=== PATIENT | female | born 1945 | race Caucasian/White ===

== ENCOUNTER 2019-12-04 12:23 | Emergency (ER) | payer OTHER ==
[2019-12-04] MEDS ORDERED: FENTANYL CITR 100 MCG/2 ML ONE (12:42)
[2019-12-04] MEDS ORDERED: ONDANSETRON 4 MG/2 ML VIAL ONE (12:43)
[2019-12-04] MEDS ORDERED: MORPHINE 2 MG/ML SYR ONE (13:42)
[2019-12-04] MEDS ORDERED: LIDOCAINE 4% PATCH ONE (14:37)
--- NOTE | 2019-12-04 15:44 | RAD REPORT ---
EXAM DESCRIPTION: RAD - Hip Left 2 View - 12/04/2019 3:33 pm CLINICAL HISTORY: pain COMPARISON: No comparisons FINDINGS: Mild arthritic changes involve the left hip. No acute fracture, dislocation or evidence of AVN. Soft tissue calcification adjacent to the left iliac wing laterally may be related to previous muscle injury or trauma.
--- NOTE | 2019-12-04 16:54 | EDPHYS ---
Physician Documentation [facility] Name: Leeann Vail Age: 74 yrs Sex: Female : 1945 Arrival Date: 12/04/2019 Time: 12:24 Bed 14 Private MD: ED Physician Armand Sahni HPI: 12/03 12:33 This 74 yrs old Female presents to ER via EMS with complaints of Back Pain. pm1 12:33 The patient presents with pain that is acute. pm1 12:33 The symptoms are located in the Left buttocks radiating down left leg. Onset: The pm1 symptoms/episode began/occurred today. Associated signs and symptoms: Pertinent negatives: dysuria, fever, incontinence, numbness, tingling. The problem was sustained History of sciatica in the past. Presentation of symptoms are the same as her prior sciatic pain. Historical: - Allergies: 12:30 Codeine; hb - Home Meds: 12:30 levothyroxine oral [Active]; Aspirin Oral [Active]; atorvastatin oral oral [Active]; hb - PMHx: 12:30 Hypothyroidism; Diabetes - NIDDM; hb - PSHx: 12:30 Back; hb - Immunization history:: Adult Immunizations up to date. - Social history:: Smoking status: Patient denies any tobacco usage or history of. ROS: 12:36 Constitutional: Negative for fever, chills, and weight loss, Neck: Negative for injury, pm1 pain, and swelling, Cardiovascular: Negative for chest pain, palpitations, and edema, Respiratory: Negative for shortness of breath, cough, wheezing, and pleuritic chest pain, Abdomen/GI: Negative for abdominal pain, nausea, vomiting, diarrhea, and constipation, Back: Negative for injury and pain. 12:36 Skin: Negative for injury, rash, and discoloration, Neuro: Negative for headache, weakness, numbness, tingling, and seizure. 12:36 MS/extremity: Positive for Pain to left buttocks area radiating down left leg, Negative for decreased range of motion, deformity. Exam: 12:36 Constitutional: This is a well developed, well nourished patient who is awake, alert, pm1 and in no acute distress. Head/Face: Normocephalic, atraumatic. Chest/axilla: Normal chest wall appearance and motion. Nontender with no deformity. No lesions are appreciated. 12:36 Abdomen/GI: Soft, non-tender. No guarding or rebound. No evidence of tenderness throughout. Back: No spinal tenderness. No costovertebral tenderness. Full range of motion. 12:36 Cardiovascular: Exam negative for acute changes, Rate: normal, Rhythm: regular, Pulses: no pulse deficits are appreciated. 12:36 Respiratory: Exam negative for acute changes, respiratory distress, shortness of breath. 12:36 Musculoskeletal/extremity: Extremities: grossly normal except: noted in the left gluteus radha tenderness that aggravates radiation of pain down left leg: There is no evidence of decreased ROM, deformity, Patient able to move left leg with passive and active FROM. 12:36 Neuro: Exam negative for acute changes, Orientation: is normal, Mentation: is normal, pm1 Motor: is normal, moves all fours, strength is 5/5 in all extremities, left great toe dorsi and plantar flexion 5/5, Sensation: is normal, no obvious gross deficits. Vital Signs: 12:25 BP 169 / 93; Pulse 103; Resp 16; Temp 98.2; Pulse Ox 100% on R/A; Weight 63.5 kg; hb Height 4 ft. 9 in. (144.78 cm); Pain 10/10; 13:40 BP 153 / 100; Pulse 98; Resp 18; Pulse Ox 100% ; Pain 10/10; ll1 12:25 Body Mass Index 30.30 (63.50 kg, 144.78 cm) hb MDM: 12:32 Patient medically screened. pm1 14:59 Data reviewed: vital signs. Data interpreted: Pulse oximetry: on room air is 100 %. pm1 Interpretation: normal. 14:59 Counseling: I had a detailed discussion with the patient and/or guardian regarding: the pm1 historical points, exam findings, and any diagnostic results supporting the discharge/admit diagnosis, the need for outpatient follow up, for definitive care, a neurologist, a neurosurgeon, to return to the emergency department if symptoms worsen or persist or if there are any questions or concerns that arise at home. 14:59 ED course: Patient reports marked improvement with lidoderm patch. Patient told me that pm1 she wants a blanket, a referral to a neurosurgeon, and wants to go home now. She does not want the xray because she feels better and is ready to leave . 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 pm1 12/03 14:15 Order name: Hip Left 2 View XRAY pm1 Administered Medications: 12:45 Drug: fentaNYL (PF) 50 mcg Route: IVP; Site: right antecubital; 13:39 Follow up: Response: No adverse reaction; Pain is unchanged, physician notified; RASS: ll1 Restless (+1) 12:45 Drug: Zofran (Ondansetron) 4 mg Route: IVP; Site: right antecubital; ah 13:39 Follow up: Response: No adverse reaction; RASS: Restless (+1) ll1 13:39 Drug: morphine 2 mg Route: IVP; Site: right antecubital; ll1 14:35 Drug: Lidoderm 5 % (700 mg/patch) 1 patches Route: Topical; Site: affected area; Disposition: 19:46 Co-signature as Attending Physician, Armand Sahni MD. 7 Disposition: 12/04/19 15:03 Discharged to Home. Impression: Sciatica, left side. - Condition is Stable. - Discharge Instructions: Sciatica. - Prescriptions for Lidoderm 5 % Topical adhesive patch,medicated - apply 1 patch by TRANSDERMAL route once daily As needed; 30 Transdermal Patch. Tramadol 50 mg Oral Tablet - take 1 tablet by ORAL route every 8 hours As needed as needed; 12 tablet. - Medication Reconciliation Form, Thank You Letter, Antibiotic Education, Prescription Opioid Use form. - Follow up: Emergency Department; When: As needed; Reason: Worsening of condition. Follow up: Eulogio Jennings MD; When: 2 - 3 days; Reason: Recheck today's complaints, Continuance of care, Re-evaluation by your physician. - Problem is new. - Symptoms have improved. Signatures: Dispatcher [employer] EDMS Silvano Cheng, FLUORESCENT LIGHTING MODEL MAKER FLUORESCENT LIGHTING MODEL MAKER pm1 Mirian Cleveland RN RN hb Calcote, Vanessa, RN RN vc Harris, Amy, RN RN ah Lewis, Lynsay, RN RN 1 Armand Sahni MD MD 7 Corrections: (The following items were deleted from the chart) 16:45 15:03 12/04/2019 15:03 Discharged to Home. Impression: Sciatica, left side. Condition ll1 is Stable. Forms are Medication Reconciliation Form, Thank You Letter, Antibiotic Education, Prescription Opioid Use. Follow up: Emergency Department; When: As needed; Reason: Worsening of condition. Follow up: Eulogio Jennings; When: 2 - 3 days; Reason: Recheck today's complaints, Continuance of care, Re-evaluation by your physician. Problem is new. Symptoms have improved. pm1
--- NOTE | 2019-12-04 16:54 | ER ---
Nurse's Notes [facility] Name: Leeann Vail Age: 74 yrs Sex: Female : 1945 Arrival Date: 12/04/2019 Time: 12:24 Bed 14 Private MD: Diagnosis: Sciatica, left side Presentation: 12/03 12:25 Chief complaint: EMS states: Left sided low back pain that radiates to left leg. Hx of hb back pain w/spinal blocks. Toradol 30mg IVP administered to 20g LAC DIRECTOR INFORMATION. Coronavirus screen: Proceed with normal triage. Ebola Screen: No symptoms or risks identified at this time. Initial Sepsis Screen: Does the patient meet any 2 criteria? No. Patient's initial sepsis screen is negative. Does the patient have a suspected source of infection? No. Patient's initial sepsis screen is negative. Risk Assessment: Do you want to hurt yourself or someone else? Patient reports no desire to harm self or others. Onset of symptoms was December 04, 2019. 12:25 Method Of Arrival: EMS: [facility] 12:25 Acuity: MARNIE 3 hb Triage Assessment: 12:30 General: Appears in no apparent distress. uncomfortable, Behavior is cooperative, hb crying. Pain: Pain currently is 10 out of 10 on a pain scale. EENT: No signs and/or symptoms were reported regarding the EENT system. Neuro: Level of Consciousness is awake, alert, obeys commands, Oriented to person, place, time, situation. Cardiovascular: Capillary refill < 3 seconds Patient's skin is warm and dry. Respiratory: Airway is patent Respiratory effort is even, unlabored, Respiratory pattern is regular, symmetrical. GI: No signs and/or symptoms were reported involving the gastrointestinal system. : No signs and/or symptoms were reported regarding the genitourinary system. Derm: Skin is pink, warm \T\ dry. Musculoskeletal: left low back pain that radiates to left leg. Historical: - Allergies: 12:30 Codeine; hb - Home Meds: 12:30 levothyroxine oral [Active]; Aspirin Oral [Active]; atorvastatin oral oral [Active]; hb - PMHx: 12:30 Hypothyroidism; Diabetes - NIDDM; hb - PSHx: 12:30 Back; hb - Immunization history:: Adult Immunizations up to date. - Social history:: Smoking status: Patient denies any tobacco usage or history of. Screenin:31 Abuse screen: Denies threats or abuse. Denies injuries from another. Nutritional hb screening: No deficits noted. Tuberculosis screening: No symptoms or risk factors identified. Fall Risk Total Joseph Fall Scale indicates Low Risk Score (25-44 pts). Fall prevention measures have been instituted. Side Rails Up X 2 Frequent Obs/Assesments occuring As available Patient and Family Educated on Fall Prevention Program and strategies. Assessment: 12:31 General: SEE TRIAGE. hb 13:16 General: Appears uncomfortable, Behavior is calm, cooperative. Pain: Complains of pain ll1 in left hip/leg Pain currently is 9 out of 10 on a pain scale. Quality of pain is described as aching, Pain began. Neuro: No deficits noted. Musculoskeletal: Circulation, motion, and sensation intact. Capillary refill < 3 seconds, Tenderness present in left hip Reports pain in pain in low back and left hip/leg. 13:40 Reassessment: No changes from previously documented assessment. Patient and/or family ll1 updated on plan of care and expected duration. Pain level reassessed. Patient is alert, oriented x 3, equal unlabored respirations, skin warm/dry/pink. Patient states symptoms have not improved. 13:50 Reassessment: Patient appears in no apparent distress at this time. Patient and/or vc family updated on plan of care and expected duration. Pain level reassessed. 15:00 Reassessment: Patient appears in no apparent distress at this time. Patient and/or vc family updated on plan of care and expected duration. Pain level reassessed. Patient is alert, oriented x 3, equal unlabored respirations, skin warm/dry/pink. 15:30 Reassessment: Patient appears in no apparent distress at this time. Patient and/or vc family updated on plan of care and expected duration. Pain level reassessed. Patient is alert, oriented x 3, equal unlabored respirations, skin warm/dry/pink. Patient states feeling better. Patient states symptoms have improved. Vital Signs: 12:25 BP 169 / 93; Pulse 103; Resp 16; Temp 98.2; Pulse Ox 100% on R/A; Weight 63.5 kg; hb Height 4 ft. 9 in. (144.78 cm); Pain 10/10; 13:40 BP 153 / 100; Pulse 98; Resp 18; Pulse Ox 100% ; Pain 10/10; ll1 12:25 Body Mass Index 30.30 (63.50 kg, 144.78 cm) hb ED Course: 12:24 Patient arrived in ED. hb 12:28 Triage completed. hb 12:29 Silvano Cheng NP is PHCP. pm1 12:29 Armand Sahni MD is Attending Physician. pm1 12:30 Arm band placed on. hb 12:31 Patient has correct armband on for positive identification. Bed in low position. Call hb light in reach. Side rails up X2. 12:31 Maintain EMS IV. Dressing intact. Good blood return noted. Site clean \T\ dry. Gauge \T\ hb site: 20g L AC. 12:32 Rosmery Iverson RN is Primary Nurse. 13:50 Report received from Senthil Estrada RN. vc 15:03 Eulogio Jennings MD is Referral Physician. pm1 15:37 No provider procedures requiring assistance completed. Patient did not have IV access vc during this emergency room visit. Administered Medications: 12:45 Drug: fentaNYL (PF) 50 mcg Route: IVP; Site: right antecubital; ah 13:39 Follow up: Response: No adverse reaction; Pain is unchanged, physician notified; RASS: ll1 Restless (+1) 12:45 Drug: Zofran (Ondansetron) 4 mg Route: IVP; Site: right antecubital; ah 13:39 Follow up: Response: No adverse reaction; RASS: Restless (+1) ll1 13:39 Drug: morphine 2 mg Route: IVP; Site: right antecubital; ll1 14:35 Drug: Lidoderm 5 % (700 mg/patch) 1 patches Route: Topical; Site: affected area; vc Outcome: 15:03 Discharge ordered by MD. pm1 15:37 Discharged to home via wheelchair. vc 15:37 Condition: improved 15:37 Discharge instructions given to patient, Instructed on 15:45 Patient left the ED. vc Signatures: Silvano Cheng NP CIGARETTE VENDOR pm1 Mirian Cleveland RN RN Pauly Lee RN RN vc Rosmery Iverson RN RN ah Lewis, Lynsay, RN RN ll1 Corrections: (The following items were deleted from the chart) 19:24 16:45 Patient left the ED. ll1 vc
[2019-12-04 17:23] VITALS: TEMP 98.2; O2SAT 100
[2019-12-04 17:25] VITALS: BP 153/100
== END 2019-12-04 16:45 | disposition home or self-care (01) ==
LOC: ER 12:23
DX: M54.32 Sciatica, left side (principal); E03.9 Hypothyroidism, unspecified; E11.9 Type 2 diabetes mellitus without complications; Z79.82 Long term (current) use of aspirin; Z88.5 Allergy status to narcotic agent
CPT/HCPCS: 73502; 96375; 96374; 99283; J3010; J2270; J2405

== ENCOUNTER 2019-12-06 05:12 | Emergency (ER) | payer OTHER ==
--- OUTSIDE RECORDS SUMMARY | 2019-12-06 05:22 | XMS REPORT ---
:1945 Author Organization [facility] t Address [address] [place] [address] Care Team Providers Name Role Phone Unavailable Unavailable Unavailable Payers Payer Name Policy Type Policy Number Effective Date Expiration Date S ource Problems This patient has no known problems. Allergies, Adverse Reactions, Alerts Allergy Allergy Status Severity Reaction(s) Onset Inactive Treating Comm ents Source Name Type Date Date Clinician codeine DA Active DC 2018-0 [facility] 4-14 [facility] 00:00: d 00 [facility] codeine DA Active DC 2018-0 [facility] 1-22 [facility] 00:00: e 00 [facility] codeine DA Active DC 2017-0 [facility] 2-25 [facility] 00:00: e 00 [facility] Medications This patient has no known medications. Procedures This patient has no known procedures. Results Test Description Test Time Test Comments Results Result [facility] e Comments - XR FOOT 2 VIEWS 2019-06-21 FAX: Y BI 15:13:00 Jd Garay DO [phone] [place]: O St: REG Name: DANIA PATHAKEveline Stoner [facility] : 1945 Age/S: 74/F [address] Unit #: [id number] Loc: [place] [address] Phys: Jd Garay DO Acct: [id number] Dis Date: Status: REG CLI PHONE #: [phone] Exam Date: 06/21/2019 1241 FAX #: [phone] Reason: PAIN EXAMS: CPT CODE: [id number] XR FO[place] 2 [place] [id number] CLINICAL HISTORY: PAIN TECHNIQUE: PA and lateral views of both feet COMPARISON: None FINDINGS: No acute fracture or dislocation. Bony trabecular pattern is unremarkable. No cortical destruction or periosteal reaction. There is narrowing of the interphalangeal joint spaces. There are also intertarsal degenerative changes. Small calcaneal enthesophytes are present bilaterally. IMPRESSION: Degenerative changes of both feet without acute bony abnormality. Location: [facility] at 1513 Reported and signed by: Damon Echols MD CC: Jd Garay DO Technologist: RT Jace(Morgan) Trnscrd Date/Time/By: 06/21/2019 (2764) : By: [email or web address] Orig Print D/T: S: 06/21/2019 (8448) PAGE 1 Signed Report - XR HAND 2 V BI 2019-06-21 FAX: Y 15:12:00 Jd Garay DO [phone] [place]: O St: REG Name: DANIA PATHAKEveline Stoner [facility] : 1945 Age/S: 74/F [address] Unit #: [id number] Loc: [place] [address] Phys: Jd Garay DO Acct: [id number] Dis Date: Status: REG CLI PHONE #: [phone] Exam Date: 06/21/2019 1241 FAX #: [phone] Reason: PAIN EXAMS: CPT CODE: [id number] [place] [id number] REASON FOR EXAM: PAIN EXAM ORDER DATE: 06/21/2019 12:16 PM Ordering Iesha: Jd Garay DO PROCEDURE: - XR HAND 2 V BI Comparison:Right wrist radiograph November 07, 2018 FINDINGS: No evidence of fracture. Posttraumatic changes are seen in the distal right radius and likely represent a chronic finding. The bones are appropriately aligned. There is diffuse narrowing of the interphalangeal joint spaces. 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 However no acute fracture or dislocation is seen. Location: [facility] at 1512 Reported and signed by: Damon Echols MD CC: Jd Garay DO Technologist: RT Jace(Morgan) Trnscrd Date/Time/By: 06/21/2019 (1511) : By: [email or web address] Orig Print D/T: S: 06/21/2019 (4350) PAGE 1 Signed Report UA RFLX MICR CULT IF INDICATED 2018-12-10 13:49:00 Test Item Value Reference Range Interpretation Comme nts UA COLOR (test code = COLU) YELLOW discript YEL/STRAW UA APPEARANCE (test code = APPU) CLEAR discript CLEAR UA GLUCOSE DIPSTICK (test code = DGLUU) NEGATIVE mg/dL NEG UA BILIRUBIN DIPSTICK (test code = BILU) NEGATIVE mg/dL NEG UA KETONE DIPSTICK (test code = KETU) NEGATIVE mg/dL NEG UA SPECIFIC GRAVITY (test code = SGU) 1.015 SG 1.005-1.030 UA BLOOD DIPSTICK (test code = GARDENIA) NEGATIVE mg/DL NEG UA PH DIPSTICK (test code = ERENDIRA) 7.0 pH UNITS 5.0-7.0 UA PROTEIN DIPSTICK (test code = PROU) NEGATIVE mg/dL NEG UA UROBILINIOGEN DIPSTICK (test code = URO) 0.2 mg/dL <2.0 UA NITRITE DIPSTICK (test code = AMOS) NEGATIVE SCREEN NEG UA LEUKOCYTE ESTERASE DIPSTICK (test code = LEUU) NEGATIVE Leuk/mcL NEGATIVE UA CULTURE NEEDED? (test code = UACULT) NO, WBC<10 Criteria Culture CHK less than 18 yrs old, neutropenic, or urological surgery? NOPrimary Indication for Culture: OtherOther Indication: hx of UTIUA RFLX MICR CULT IF INDICATED 2018-12-10 13:48:00 Test Item Value Reference Range Interpretation Comments UA COLOR (test code = COLU) YELLOW discript YEL/STRAW UA APPEARANCE (test code = CLEAR discript CLEAR APPU) UA GLUCOSE DIPSTICK (test NEGATIVE mg/dL NEG code = DGLUU) UA BILIRUBIN DIPSTICK (test NEGATIVE mg/dL NEG code = BILU) UA KETONE DIPSTICK (test NEGATIVE mg/dL NEG code = KETU) UA SPECIFIC GRAVITY (test 1.015 SG 1.005-1.030 code = SGU) UA BLOOD DIPSTICK (test NEGATIVE mg/DL NEG code = GARDENIA) UA PH DIPSTICK (test code = 7.0 pH UNITS 5.0-7.0 ERENDIRA) UA PROTEIN DIPSTICK (test NEGATIVE mg/dL NEG code = PROU) UA UROBILINIOGEN DIPSTICK 0.2 mg/dL <2.0 (test code = URO) UA NITRITE DIPSTICK (test NEGATIVE SCREEN NEG code = AMOS) UA LEUKOCYTE ESTERASE NEGATIVE Leuk/mcL NEGATIVE DIPSTICK (test code = LEUU) UA CULTURE NEEDED? (test Criteria Culture CHK code = UACULT) less than 18 yrs old, neutropenic, or urological surgery? NOPrimary Indication for Culture: OtherOther Indication: hx of UTIGLUCOSE BEDSIDE [id number] 11:50:00 Test Item Value Reference Range Interpretation Comments GLUCOSE BEDSIDE TESTING (test code 143 mg/dL 70-110 H = GLUBED) GLUCOSE BEDSIDE [id number] 08:19:00 Test Item Value Reference Range Interpretation Comments GLUCOSE BEDSIDE TESTING (test code = 93 mg/dL 70-110 N GLUBED) BASIC METABOLIC [id number] 05:22:00 Test Item Value Reference Range Interpretation Comments SODIUM (test code = NA) 146 mmol/L 134-147 N POTASSIUM (test code = 3.7 mmol/L 3.4-5.0 N K) CHLORIDE (test code = 115 mmol/L 100-108 H CL) CARBON DIOXIDE (test 26 mmol/L 21-32 N code = CO2) ANION GAP (test code = 5.0 GAP calc 4.0-15.0 N GAP) GLUCOSE (test code = 97 MG/DL 70-110 N GLU) BLOOD UREA NITROGEN 7 MG/DL 7-18 N (test code = BUN) GLOMERULAR FILTRATION >=60 max estimate >60 RATE (test code = GFR) estGFR CREATININE (test code = 0.8 MG/DL 0.6-1.0 N CREAT) CALCIUM (test code = CA) 8.8 MG/DL 8.5-10.1 N CBC W/AUTO [id number] 04:59:00 Test Item Value Reference Range Interpretation Comments WHITE BLOOD CELL (test code = 4.5 K/mm3 3.5-11.0 N WBC) RED BLOOD CELL (test code = RBC) 2.57 M/mm3 4.70-6.10 L HEMOGLOBIN (test code = HGB) 8.4 G/DL 10.4-14.9 L HEMATOCRIT (test code = HCT) 27.4 % 31.5-44.1 L MEAN CELL VOLUME (test code = 106.6 Fl 84.5-98.6 H MCV) MEAN CELL HGB (test code = MCH) 32.7 pg 27.0-34.2 N MEAN CELL HGB CONCETRATION (test 30.7 G/DL 31.5-34.0 L code = MCHC) RED CELL DISTRIBUTION WIDTH (test 16.2 SD 11.5-14.5 H code = RDW) PLATELET COUNT (test code = PLT) 212.0 K/mm3 150-450 N MEAN PLATELET VOLUME (test code = 9.60 fL 7.0-10.5 N MPV) NEUTROPHIL % (test code = NT%) 60.1 % 40-76 N LYMPHOCYTE % (test code = LY%) 24.0 % 20.5-51.1 N MONOCYTE % (test code = MO%) 10.6 % 1.7-9.3 H EOSINOPHIL % (test code = EO%) 4.4 % 0.0-6.0 N BASOPHIL % (test code = BA%) 0.9 % 0.0-2.0 N NEUTROPHIL # (test code = NT#) 2.73 K/mm3 1.8-7.6 N LYMPHOCYTE # (test code = LY#) 1.1 K/mm3 0.6-3.2 N MONOCYTE # (test code = MO#) 0.5 K/mm3 0.3-1.1 N EOSINOPHIL # (test code = EO#) 0.2 K/mm3 0.0-0.4 N BASOPHIL # (test code = BA#) 0.0 K/mm3 0.0-0.1 N MANUAL DIFF REQUIRED (test code = NO DIFF/SCN CRITERIA MDIFF) GLUCOSE BEDSIDE [id number] 21:13:00 Test Item Value Reference Range Interpretation Comments GLUCOSE BEDSIDE TESTING (test code 115 mg/dL 70-110 H = GLUBED) GLUCOSE BEDSIDE [id number] 17:25:00 Test Item Value Reference Range Interpretation Comments GLUCOSE BEDSIDE TESTING (test code 139 mg/dL 70-110 H = GLUBED) - DUP LE ART UNI [id number] 14:36:00 Name: LILIANA PATHAK [facility] : 1945 Age/S: 73 / F [address] Unit #: [id number] Loc: [place] [address] Phys: Dana Strange MD Acct: [id number] Dis Date: Status: ADM IN PHONE #: [phone] Exam Date: 12/09/2018 0831 FAX #: Reason: reeval R groin pseudo s/p thrombin injection EXAMS: CPT: [id number] [id number] EXAMINATION: - DUP LE ART UNI RT. LOCATION: S17. HISTORY: Reeval R groin pseudo s/pthrombin injection. COMPARISON: Ultrasound 12/08/2018 and 12/05/2018. FINDINGS/ IMPRESSION: Targeted high resolution real-time ultrasonographic evaluation of right groin was performed utilizing carter scale, pulse Doppler and color flowimaging. 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 Right proximal, mid and distal SFA is patent. Right SFV is patent. at 1436 Reported and signed by: Brittney Strange M.D. CC: Roxana Chacon MD; dJ Garay DO; Dana Strange MD Technologist: Ilene Lawrence Trnscb Date/Time: 12/09/2018 (8656) [email or web address] PAGE 1 Signed Report Name: LILIANA PATHAK : 1945 Age/S: 73 / F [address] Unit #: [id number] Loc: [place] [address] Phys: Dana Strange MD Acct: [id number] Dis Date: Status: ADM IN PHONE #: [phone] Exam Date: 12/09/2018 0831 FAX #: Reason: reeval R groin pseudo s/p thrombin injection EXAMS: CPT: [id number] [id number] <Continued> Orig Print D/T: S: 12/10/2018 (0831) Probe: PAGE 2 Signed ReportGLUCOSE BEDSIDE TESTING 2018-12-09 11:54:00 Test Item Value Reference Range Interpretation Comments GLUCOSE BEDSIDE TESTING (test code = 99 mg/dL 70-110 N GLUBED) GLUCOSE BEDSIDE [id number] 08:18:00 Test Item Value Reference Range Interpretation Comments GLUCOSE BEDSIDE TESTING (test code = 92 mg/dL 70-110 N GLUBED) BASIC METABOLIC [id number] 06:12:00 Test Item Value Reference Range Interpretation Comments SODIUM (test code = NA) 143 mmol/L 134-147 N POTASSIUM (test code = 4.5 mmol/L 3.4-5.0 N K) CHLORIDE (test code = 111 mmol/L 100-108 H CL) CARBON DIOXIDE (test 27 mmol/L 21-32 N code = CO2) ANION GAP (test code = 5.0 GAP calc 4.0-15.0 N GAP) GLUCOSE (test code = 95 MG/DL 70-110 N GLU) BLOOD UREA NITROGEN 12 MG/DL 7-18 N (test code = BUN) GLOMERULAR FILTRATION >=60 max estimate >60 RATE (test code = GFR) estGFR CREATININE (test code = 0.8 MG/DL 0.6-1.0 N CREAT) CALCIUM (test code = CA) 8.6 MG/DL 8.5-10.1 N CBC W/AUTO [id number] 05:34:00 Test Item Value Reference Range Interpretation Comments WHITE BLOOD CELL (test code = 5.2 K/mm3 3.5-11.0 N WBC) RED BLOOD CELL (test code = RBC) 2.75 M/mm3 4.70-6.10 L HEMOGLOBIN (test code = HGB) 9.2 G/DL 10.4-14.9 L HEMATOCRIT (test code = HCT) 29.0 % 31.5-44.1 L MEAN CELL VOLUME (test code = 105.5 Fl 84.5-98.6 H MCV) MEAN CELL HGB (test code = MCH) 33.5 pg 27.0-34.2 N MEAN CELL HGB CONCETRATION (test 31.7 G/DL 31.5-34.0 N code = MCHC) RED CELL DISTRIBUTION WIDTH (test 16.3 SD 11.5-14.5 H code = RDW) PLATELET COUNT (test code = PLT) 225.0 K/mm3 150-450 N MEAN PLATELET VOLUME (test code = 9.40 fL 7.0-10.5 N MPV) NEUTROPHIL % (test code = NT%) 64.6 % 40-76 LYMPHOCYTE % (test code = LY%) 21.6 % 20.5-51.1 N MONOCYTE % (test code = MO%) 8.8 % 1.7-9.3 N EOSINOPHIL % (test code = EO%) 4.2 % 0.0-6.0 N BASOPHIL % (test code = BA%) 0.8 % 0.0-2.0 N NEUTROPHIL # (test code = NT#) 3.37 K/mm3 1.8-7.6 N LYMPHOCYTE # (test code = LY#) 1.1 K/mm3 0.6-3.2 N MONOCYTE # (test code = MO#) 0.5 K/mm3 0.3-1.1 N EOSINOPHIL # (test code = EO#) 0.2 K/mm3 0.0-0.4 N BASOPHIL # (test code = BA#) 0.0 K/mm3 0.0-0.1 N MANUAL DIFF REQUIRED (test code = NO DIFF/SCN CRITERIA MDIFF) GLUCOSE BEDSIDE [id number] 20:40:00 Test Item Value Reference Range Interpretation Comments GLUCOSE BEDSIDE TESTING (test code 160 mg/dL 70-110 H = GLUBED) - US GUIDANCE [facility] [id number] 16:11:00 Name: LILIANA PATHAK [facility] [place] : 1945 Age/S: 73 / F [address] Unit #: [id number] Loc: [place] [address] Phys: Roxana Chacon MD Acct: [id number] Dis Date: Status: ADM IN PHONE #: [phone] Exam Date: 12/08/2018 1510 FAX #: Reason: RIGHT PS EUDOANEURYSM EXAMS: CPT: [id number] US GUIDANCE [facility] ACCESS [id number] ULTRASOUND-GUIDED THROMBIN INJECTION IN RIGHT FEMORAL PSEUDOANEURYSM LOCATION: S17. HISTORY: Recent emergent heart cath with subsequent right groin pain and swelling with recent ultrasound demonstrating bilobed pseudoaneurysm, request is made for treatment. COMPARISON: CT pelvis 11/27/2018, US right groin 12/05/2018. TECHNIQUE: Following explanation of risks, benefits, and alternative treatment options, informed consent was obtained from patient. Risk of thrombosis of the [place] vessel was explained. The patient was placed supine on the bed and prepped and draped in the usual sterile fashion. Preliminary ultrasound demonstrates bilobed pseudoaneurysm formation in the right groin, approximately measuring 5.1 x 2.9 cm. 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 Underdirect ultrasound guidance, a 25-gauge needle was advanced from an anterior approach into the right femoral pseudoaneurysm. Approximately 250 units of thrombin were slowly injected causingblood to clot and form within the pseudoaneurysm. Color sonography showed the presence of a new blood clot within the pseudoaneurysm. At the end of the procedure, no flow within the pseudoaneurysm was observed. The underlying arterial vasculature remained patent withoutacute abnormality. Vascular flow was noted in the right lower extremity arterial vessels after procedure sonographically, as well as presence of pedal pulses. The patient tolerated the procedure well and left the room in satisfactory condition without complication. IMPRESSION: Technically successful injection of 250 units of thrombin into the right femoral pseudoaneurysm. PLAN: Repeat ultrasound of pseudoaneurysm and right lower extremity arterial Doppler was ordered for following morning. PAGE 1 Signed Report (CONTINUED) Name: LILIANA PATHAK [facility] : 1945 Age/S: 73 / F [address] Unit #: [id number] Loc: [place] [address] Phys: Roxana Chacon MD Acct: [id number] DisDate: Status: ADM IN PHONE #: [phone] Exam Date: 12/08/2018 1510 FAX #: Reason: RIGHT PSEUDOANEURYSM EXAMS: CPT: [id number] US GUIDANCE [facility] ACCESS [id number] <Continued> at 1611 Reported and signed by: Brittney Strange M.D. CC: Roxana Chacon MD; Jd Garay DO Technologist: Gena Weber RDMS, RT(R) Trnscb Date/Time: 12/08/2018 (1611) [email or web address] PAGE 2 Signed Report Name: LILIANA PATHAK [facility] : 1945 Age/S: 73 / F [address] Unit #: [id number] Loc: [place] [address] Phys:Roxana Chacon MD Acct: [id number] Dis Date: Status: ADM IN PHONE #: [phone] Exam Date: 12/08/2018 1510 FAX #: Reason: RIGHT PSEUDOANEURYSM EXAMS: CPT: [id number] [facility] GUIDANCE [facility] ACCESS [id number] <Continued> Orig Print D/T: S: 12/08/2018 (1614) Probe: PAGE 3 Signed ReportGLUCOSE BEDSIDE [id number] 16:04:00 Test Item Value Reference Range Interpretation Comments GLUCOSE BEDSIDE TESTING (test code = 86 mg/dL 70-110 N GLUBED) GLUCOSE BEDSIDE [id number] 11:34:00 Test Item Value Reference Range Interpretation Comments GLUCOSE BEDSIDE TESTING (test code 137 mg/dL 70-110 H = GLUBED) GLUCOSE BEDSIDE [id number] 07:13:00 Test Item Value Reference Range Interpretation Comments GLUCOSE BEDSIDE TESTING (test code = 90 mg/dL 70-110 N GLUBED) PROTHROMBIN [id number] 05:24:00 Test Item Value Reference Range Interpretation Comments PT PATIENT (test code = PTP) 11.6 SECONDS 9.3-12.9 N INTERNATIONAL NORMAL RATIO 1.01 INR Unit 0.8-1.2 N (test code = INR) BASIC METABOLIC [id number] 05:10:00 Test Item Value Reference Range Interpretation Comments SODIUM (test code = NA) 143 mmol/L 134-147 N POTASSIUM (test code = 4.2 mmol/L 3.4-5.0 N K) CHLORIDE (test code = 111 mmol/L 100-108 H CL) CARBON DIOXIDE (test 29 mmol/L 21-32 N code = CO2) ANION GAP (test code = 3.0 GAP calc 4.0-15.0 L GAP) GLUCOSE (test code = 95 MG/DL 70-110 N GLU) BLOOD UREA NITROGEN 12 MG/DL 7-18 N (test code = BUN) GLOMERULAR FILTRATION >=60 max estimate >60 RATE (test code = GFR) estGFR CREATININE (test code = 0.9 MG/DL 0.6-1.0 N CREAT) CALCIUM (test code = CA) 8.6 MG/DL 8.5-10.1 N CBC W/AUTO [id number] 05:04:00 Test Item Value Reference Range Interpretation Comments WHITE BLOOD CELL (test code = 5.4 K/mm3 3.5-11.0 N WBC) RED BLOOD CELL (test code = RBC) 2.55 M/mm3 4.70-6.10 L HEMOGLOBIN (test code = HGB) 8.4 G/DL 10.4-14.9 L HEMATOCRIT (test code = HCT) 26.8 % 31.5-44.1 L MEAN CELL VOLUME (test code = 105.1 Fl 84.5-98.6 H MCV) MEAN CELL HGB (test code = MCH) 32.9 pg 27.0-34.2 N MEAN CELL HGB CONCETRATION (test 31.3 G/DL 31.5-34.0 L code = MCHC) RED CELL DISTRIBUTION WIDTH (test 16.5 SD 11.5-14.5 H code = RDW) PLATELET COUNT (test code = PLT) 191.0 K/mm3 150-450 N MEAN PLATELET VOLUME (test code = 9.60 fL 7.0-10.5 N MPV) NEUTROPHIL % (test code = NT%) 49.3 % 40-76 LYMPHOCYTE % (test code = LY%) 33.6 % 20.5-51.1 N MONOCYTE % (test code = MO%) 11.9 % 1.7-9.3 H EOSINOPHIL % (test code = EO%) 4.6 % 0.0-6.0 N BASOPHIL % (test code = BA%) 0.6 % 0.0-2.0 N NEUTROPHIL # (test code = NT#) 2.66 K/mm3 1.8-7.6 N LYMPHOCYTE # (test code = LY#) 1.8 K/mm3 0.6-3.2 N MONOCYTE # (test code = MO#) 0.6 K/mm3 0.3-1.1 N EOSINOPHIL # (test code = EO#) 0.3 K/mm3 0.0-0.4 N BASOPHIL # (test code = BA#) 0.0 K/mm3 0.0-0.1 N MANUAL DIFF REQUIRED (test code = NO DIFF/SCN CRITERIA MDIFF) GLUCOSE BEDSIDE [id number] 20:29:00 Test Item Value Reference Range Interpretation Comments GLUCOSE BEDSIDE TESTING (test code 128 mg/dL 70-110 H = GLUBED) GLUCOSE BEDSIDE [id number] 17:11:00 Test Item Value Reference Range Interpretation Comments GLUCOSE BEDSIDE TESTING (test code 112 mg/dL 70-110 H = GLUBED) GLUCOSE BEDSIDE [id number] 12:04:00 Test Item Value Reference Range Interpretation Comments GLUCOSE BEDSIDE TESTING (test code 164 mg/dL 70-110 H = GLUBED) GLUCOSE BEDSIDE [id number] 05:24:00 Test Item Value Reference Range Interpretation Comments GLUCOSE BEDSIDE TESTING (test code = 82 mg/dL 70-110 N GLUBED) GLUCOSE BEDSIDE [id number] 21:48:00 Test Item Value Reference Range Interpretation Comments GLUCOSE BEDSIDE TESTING (test code = 92 mg/dL 70-110 N GLUBED) GLUCOSE BEDSIDE [id number] 08:25:00 Test Item Value Reference Range Interpretation Comments GLUCOSE BEDSIDE TESTING (test code = 82 mg/dL 70-110 N GLUBED) COMPREHENSIVE METABOLIC [id number] 05:58:00 Test Item Value Reference Range Interpretation Comments SODIUM (test code = NA) 142 mmol/L 134-147 N POTASSIUM (test code = 3.9 mmol/L 3.4-5.0 N K) CHLORIDE (test code = 108 mmol/L 100-108 N CL) CARBON DIOXIDE (test 32 mmol/L 21-32 N code = CO2) ANION GAP (test code = 2.0 GAP calc 4.0-15.0 L GAP) GLUCOSE (test code = 104 MG/DL 70-110 N GLU) BLOOD UREA NITROGEN 13 MG/DL 7-18 N (test code = BUN) GLOMERULAR FILTRATION >=60 max estimate >60 RATE (test code = GFR) estGFR CREATININE (test code = 0.9 MG/DL 0.6-1.0 N CREAT) TOTAL PROTEIN (test code 6.1 G/DL 6.4-8.2 L = PROT) ALBUMIN (test code = 3.3 G/DL 3.4-5.0 L ALB) GLOBULIN (test code = 2.8 GM/dL GLOB) ALBUMIN/GLOBULIN RATIO 1.2 RATIO 1.2-2.2 N (test code = A/G) CALCIUM (test code = CA) 9.5 MG/DL 8.5-10.1 N BILIRUBIN TOTAL (test 0.60 MG/DL 0.2-1.2 N code = BILT) SGOT/AST (test code = 19 Unit/L 15-37 N AST) SGPT/ALT (test code = 17 Unit/L 12-78 N ALT) ALKALINE PHOSPHATASE 58 Unit/L 45-117 N TOTAL (test code = ALKP) GLUCOSE BEDSIDE [id number] 05:45:00 Test Item Value Reference Range Interpretation Comments GLUCOSE BEDSIDE TESTING (test code 100 mg/dL 70-110 N = GLUBED) CBC W/AUTO [id number] 05:38:00 Test Item Value Reference Range Interpretation Comments WHITE BLOOD CELL (test code = 6.3 K/mm3 3.5-11.0 N WBC) RED BLOOD CELL (test code = RBC) 2.84 M/mm3 4.70-6.10 L HEMOGLOBIN (test code = HGB) 9.3 G/DL 10.4-14.9 L HEMATOCRIT (test code = HCT) 29.3 % 31.5-44.1 L MEAN CELL VOLUME (test code = 103.2 Fl 84.5-98.6 H MCV) MEAN CELL HGB (test code = MCH) 32.7 pg 27.0-34.2 N MEAN CELL HGB CONCETRATION (test 31.7 G/DL 31.5-34.0 N code = MCHC) RED CELL DISTRIBUTION WIDTH (test 16.5 SD 11.5-14.5 H code = RDW) PLATELET COUNT (test code = PLT) 199.0 K/mm3 150-450 N MEAN PLATELET VOLUME (test code = 8.80 fL 7.0-10.5 N MPV) NEUTROPHIL % (test code = NT%) 67.6 % 40-76 N LYMPHOCYTE % (test code = LY%) 17.5 % 20.5-51.1 L MONOCYTE % (test code = MO%) 11.1 % 1.7-9.3 H EOSINOPHIL % (test code = EO%) 3.3 % 0.0-6.0 N BASOPHIL % (test code = BA%) 0.5 % 0.0-2.0 N NEUTROPHIL # (test code = NT#) 4.28 K/mm3 1.8-7.6 N LYMPHOCYTE # (test code = LY#) 1.1 K/mm3 0.6-3.2 N MONOCYTE # (test code = MO#) 0.7 K/mm3 0.3-1.1 N EOSINOPHIL # (test code = EO#) 0.2 K/mm3 0.0-0.4 N BASOPHIL # (test code = BA#) 0.0 K/mm3 0.0-0.1 N MANUAL DIFF REQUIRED (test code = NO DIFF/SCN CRITERIA MDIFF) - DUP VEIN [id number] 01:53:00 Name: DANIA PATHAKEveline Stoner [facility] : 1945 Age/S: 73 / F [address] [facility] [address] Unit #: [id number] Loc: [place] [address] 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 Site: P16 COMPARISON: none FINDINGS: Right side:- 1. Patent and compressible visualized portions of the common femoral, femoral and popliteal veins to the level of the trifurcation. 2. Unremarkable appearance of the visualized portions of the deep veinsof the calf. Please note there is limited visualization of the PTV secondary to edema 3. Significant calf edema Left side:- 1. Patent and compressible visualized portions of the common femoral, femoral and popliteal veins to the level of the trifurcation. 2. Unremarkable appearance of the visualized portions of the deep veinsof the calf. Please note there is limited visualization of the PTV secondary to edema 3. Significant calf edema IMPRESSION: No evidence of DVT is visualized although evaluation is limited secondary to edema. at 0153 Reported and signed by: Sejal Echols M.D. 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 Acct: [id number] Dis Date: Status: ADM IN PHONE #: [phone] Date: 12/06/2018 0115 FAX #: Reason: edema EXAMS: CPT: [id number] DUP VEIN BHARTI [id number] <Continued> CC: Jd Garay DO; Cecil Marquez MD; Margie Zazueta NP Technologist: Loida Walker RDMS Trnscb Date/Time: 12/06/2018 (0153) [email or web address] PAGE 2 Signed Report Name: ZOLILIANA Stoner [facility] : 1945 Age/S: 73 / F [address] [place] [address] Unit #: [id number] Loc: [place] [address] 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 Acct: [id number] Dis Date: Status: ADM IN PHONE #: [phone] Exam Date: 12/06/2018 0115 FAX #: Reason: edema EXAMS: CPT: [id number] VEIN BHARTI [id number] <Continued> Orig Print D/T: S: 12/06/2018 (0157) Probe: PAGE 3 Signed ReportBASIC METABOLIC [id number] 21:33:00 Test Item Value Reference Range Interpretation Comments SODIUM (test code = NA) 137 mmol/L 134-147 N POTASSIUM (test code = K) 3.9 mmol/L 3.4-5.0 N CHLORIDE (test code = CL) 104 mmol/L 100-108 N CARBON DIOXIDE (test code = CO2) 28 mmol/L 21-32 N ANION GAP (test code = GAP) 5.0 GAP calc 4.0-15.0 N GLUCOSE (test code = GLU) 138 MG/DL 70-110 H BLOOD UREA NITROGEN (test code = 15 MG/DL 7-18 N BUN) GLOMERULAR FILTRATION RATE (test 58 estGFR >60 L code = GFR) CREATININE (test code = CREAT) 1.0 MG/DL 0.6-1.0 N CALCIUM (test code = CA) 9.7 MG/DL 8.5-10.1 N BASIC METABOLIC [id number] 21:31:00 Test Item Value Reference Range Interpretation Comments SODIUM (test code = NA) 137 mmol/L 134-147 N POTASSIUM (test code = K) 3.9 mmol/L 3.4-5.0 N CHLORIDE (test code = CL) 104 mmol/L 100-108 N CARBON DIOXIDE (test code = CO2) 28 mmol/L 21-32 N ANION GAP (test code = GAP) 5.0 GAP calc 4.0-15.0 N GLUCOSE (test code = GLU) 138 MG/DL 70-110 H BLOOD UREA NITROGEN (test code = 15 MG/DL 7-18 N BUN) GLOMERULAR FILTRATION RATE (test estGFR >60 code = GFR) CREATININE (test code = CREAT) MG/DL 0.6-1.0 CALCIUM (test code = CA) 9.7 MG/DL 8.5-10.1 N CBC W/AUTO [id number] 21:22:00 Test Item Value Reference Range Interpretation Comments WHITE BLOOD CELL (test code = 5.9 K/mm3 3.5-11.0 N WBC) RED BLOOD CELL (test code = RBC) 3.29 M/mm3 4.70-6.10 L HEMOGLOBIN (test code = HGB) 10.7 G/DL 10.4-14.9 N HEMATOCRIT (test code = HCT) 33.6 % 31.5-44.1 N MEAN CELL VOLUME (test code = 102.1 Fl 84.5-98.6 H MCV) MEAN CELL HGB (test code = MCH) 32.5 pg 27.0-34.2 N MEAN CELL HGB CONCETRATION (test 31.8 G/DL 31.5-34.0 N code = MCHC) RED CELL DISTRIBUTION WIDTH (test 16.5 SD 11.5-14.5 H code = RDW) PLATELET COUNT (test code = PLT) 231.0 K/mm3 150-450 N MEAN PLATELET VOLUME (test code = 9.30 fL 7.0-10.5 N MPV) NEUTROPHIL % (test code = NT%) 73.0 % 40-76 N LYMPHOCYTE % (test code = LY%) 13.8 % 20.5-51.1 L MONOCYTE % (test code = MO%) 9.8 % 1.7-9.3 H EOSINOPHIL % (test code = EO%) 2.9 % 0.0-6.0 N BASOPHIL % (test code = BA%) 0.5 % 0.0-2.0 N NEUTROPHIL # (test code = NT#) 4.30 K/mm3 1.8-7.6 N LYMPHOCYTE # (test code = LY#) 0.8 K/mm3 0.6-3.2 N MONOCYTE # (test code = MO#) 0.6 K/mm3 0.3-1.1 N EOSINOPHIL # (test code = EO#) 0.2 K/mm3 0.0-0.4 N BASOPHIL # (test code = BA#) 0.0 K/mm3 0.0-0.1 N MANUAL DIFF REQUIRED (test code = NO DIFF/SCN CRITERIA MDIFF) - US EXTREM NON [facility] [id number] 20:41:00 Name: DANIA PATHAKA [facility] : 1945 Age/S: 73 / F [address] Unit #: [id number] Loc: [place] [address] Phys: Ellyn Izaguirre MD Acct: [id number] Dis Date: Status: REG ER PHONE #: [phone] Exam Date: 12/05/20182015 FAX #: Reason: R inguinal pain s/p cath (11/23/18) EXAMS: CPT: [id number] US EXTREM NON VASC COMP [id number] Ultrasound soft tissue History: R inguinal pain s/p cath (11/23/18) Comparison: November 28, 2018 Ultrasound of the soft tissues of the right groin, in the area of concern, was performed. A pseudoaneurysm, with blood flow, is again identified. This measures 3.2 x 2.3 x 2.3 cm in dimensions on today's exam. No other sonographic abnormalities are identified. 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 This is larger on today's exam compared to the prior exam performed November 28, 2018. at 2040 Reported and signed by: Jon Griffith M.D. CC: Jd Garay DO; Ellyn Izaguirre MD Technologist: Loida Walker RDMS Trnscb Date/Time: 12/05/2018 (2040) RadhaPMT PAGE 1 Signed Report Name: LILIANA PATHAK [facility] : 1945 Age/S: 73 / F [id number] Unit #: [id number] Loc: [place] [address] Phys: Ellyn Izaguirre MD Acct: [id number] Dis Date: Status: REG ER PHONE #: [phone] Exam Date: FAX #: Reason: R inguinal pain s/p cath (11/23/18) EXAMS: CPT: [id number] US EXTREM NONVASC COMP [id number] <Continued> Orig Print D/T: S: 12/05/2018 (2043) Probe: PAGE 2 Signed ReportGLUCOSE BEDSIDE TESTING 2018-12-01 11:28:00 Test Item Value Reference Range Interpretation Comments GLUCOSE BEDSIDE TESTING (test code 179 mg/dL 70-110 H = GLUBED) GLUCOSE BEDSIDE [id number] 07:52:00 Test Item Value Reference Range Interpretation Comments GLUCOSE BEDSIDE TESTING (test code = 99 mg/dL 70-110 N GLUBED) BASIC METABOLIC [id number] 05:16:00 Test Item Value Reference Range Interpretation Comments SODIUM (test code = NA) 146 mmol/L 134-147 N POTASSIUM (test code = K) 4.1 mmol/L 3.4-5.0 N CHLORIDE (test code = CL) 114 mmol/L 100-108 H CARBON DIOXIDE (test code = CO2) 28 mmol/L 21-32 N ANION GAP (test code = GAP) 4.0 GAP calc 4.0-15.0 N GLUCOSE (test code = GLU) 96 MG/DL 70-110 N BLOOD UREA NITROGEN (test code = 10 MG/DL 7-18 N BUN) GLOMERULAR FILTRATION RATE (test 58 estGFR >60 L code = GFR) CREATININE (test code = CREAT) 1.0 MG/DL 0.6-1.0 N CALCIUM (test code = CA) 9.0 MG/DL 8.5-10.1 N [id number] 05:16:00 Test Item Value Reference Range Interpretation Comments MAGNESIUM (test code = MAG) 1.7 MG/DL 1.8-2.4 L CBC W/AUTO [id number] 04:56:00 Test Item Value Reference Range Interpretation Comments WHITE BLOOD CELL (test code = 5.5 K/mm3 3.5-11.0 N WBC) RED BLOOD CELL (test code = RBC) 2.49 M/mm3 4.70-6.10 L HEMOGLOBIN (test code = HGB) 8.3 G/DL 10.4-14.9 L HEMATOCRIT (test code = HCT) 25.3 % 31.5-44.1 L MEAN CELL VOLUME (test code = 101.6 Fl 84.5-98.6 H MCV) MEAN CELL HGB (test code = MCH) 33.3 pg 27.0-34.2 N MEAN CELL HGB CONCETRATION (test 32.8 G/DL 31.5-34.0 N code = MCHC) RED CELL DISTRIBUTION WIDTH (test 17.4 SD 11.5-14.5 H code = RDW) PLATELET COUNT (test code = PLT) 171.0 K/mm3 150-450 N MEAN PLATELET VOLUME (test code = 9.90 fL 7.0-10.5 N MPV) NEUTROPHIL % (test code = NT%) 55.5 % 40-76 LYMPHOCYTE % (test code = LY%) 26.0 % 20.5-51.1 N MONOCYTE % (test code = MO%) 11.9 % 1.7-9.3 H EOSINOPHIL % (test code = EO%) 6.1 % 0.0-6.0 H BASOPHIL % (test code = BA%) 0.5 % 0.0-2.0 N NEUTROPHIL # (test code = NT#) 3.06 K/mm3 1.8-7.6 N LYMPHOCYTE # (test code = LY#) 1.4 K/mm3 0.6-3.2 N MONOCYTE # (test code = MO#) 0.7 K/mm3 0.3-1.1 N EOSINOPHIL # (test code = EO#) 0.3 K/mm3 0.0-0.4 N BASOPHIL # (test code = BA#) 0.0 K/mm3 0.0-0.1 N MANUAL DIFF REQUIRED (test code = NO DIFF/SCN CRITERIA MDIFF) GLUCOSE BEDSIDE [id number] 21:50:00 Test Item Value Reference Range Interpretation Comments GLUCOSE BEDSIDE TESTING (test code 127 mg/dL 70-110 H = GLUBED) HGB [id number] 18:32:00 Test Item Value Reference Range Interpretation Comments HEMOGLOBIN (test code = HGB) 9.3 G/DL 10.4-14.9 L HEMATOCRIT (test code = HCT) 29.0 % 31.5-44.1 L GLUCOSE BEDSIDE [id number] 16:57:00 Test Item Value Reference Range Interpretation Comments GLUCOSE BEDSIDE TESTING (test code 137 mg/dL 70-110 H = GLUBED) GLUCOSE BEDSIDE [id number] 11:45:00 Test Item Value Reference Range Interpretation Comments GLUCOSE BEDSIDE TESTING (test code 127 mg/dL 70-110 H = GLUBED) GLUCOSE BEDSIDE [id number] 08:43:00 Test Item Value Reference Range Interpretation Comments GLUCOSE BEDSIDE TESTING (test code = 77 mg/dL 70-110 N GLUBED) HGB [id number] 08:31:00 Test Item Value Reference Range Interpretation Comments HEMOGLOBIN (test code = HGB) 8.6 G/DL 10.4-14.9 L HEMATOCRIT (test code = HCT) 26.7 % 31.5-44.1 L LACTIC ACID [id number] 08:15:00 Test Item Value Reference Range Interpretation Comments LACTIC ACID POC (test code = < 0.30 MMOL/L 0.90-1.70 L LACTP) CBC W/AUTO [id number] 06:34:00 Test Item Value Reference Range Interpretation Comments WHITE BLOOD CELL (test 5.4 K/mm3 3.5-11.0 N code = WBC) RED BLOOD CELL (test 2.55 M/mm3 4.70-6.10 L code = RBC) HEMOGLOBIN (test code 8.3 G/DL 10.4-14.9 L = HGB) HEMATOCRIT (test code 25.6 % 31.5-44.1 L = HCT) MEAN CELL VOLUME (test 100.4 Fl 84.5-98.6 H code = MCV) MEAN CELL HGB (test 32.5 pg 27.0-34.2 N code = MCH) MEAN CELL HGB 32.4 G/DL 31.5-34.0 N CONCETRATION (test code = MCHC) RED CELL DISTRIBUTION 17.6 SD 11.5-14.5 H WIDTH (test code = RDW) PLATELET COUNT (test 160.0 K/mm3 150-450 N code = PLT) MEAN PLATELET VOLUME 10.40 fL 7.0-10.5 N (test code = MPV) NEUTROPHIL % (test 47.7 % 40-76 N code = NT%) LYMPHOCYTE % (test 32.8 % 20.5-51.1 N code = LY%) MONOCYTE % (test code 11.3 % 1.7-9.3 H = MO%) EOSINOPHIL % (test 7.6 % 0.0-6.0 H code = EO%) BASOPHIL % (test code 0.6 % 0.0-2.0 N = BA%) NEUTROPHIL # (test 2.58 K/mm3 1.8-7.6 N code = NT#) LYMPHOCYTE # (test 1.8 K/mm3 0.6-3.2 N code = LY#) MONOCYTE # (test code 0.6 K/mm3 0.3-1.1 N = MO#) EOSINOPHIL # (test 0.4 K/mm3 0.0-0.4 N code = EO#) BASOPHIL # (test code 0.0 K/mm3 0.0-0.1 N = BA#) MANUAL DIFF REQUIRED NO DIFF/SCN CRITERIA SLIDE Morgan ROLDAN (test code = MDIFF) CONSISTA NT WITH AUTO DIFFERENTIAL. BASIC METABOLIC [id number] 05:22:00 Test Item Value Reference Range Interpretation Comments SODIUM (test code = NA) 143 mmol/L 134-147 N POTASSIUM (test code = K) 3.7 mmol/L 3.4-5.0 N CHLORIDE (test code = CL) 113 mmol/L 100-108 H CARBON DIOXIDE (test code = CO2) 23 mmol/L 21-32 N ANION GAP (test code = GAP) 7.0 GAP calc 4.0-15.0 N GLUCOSE (test code = GLU) 85 MG/DL 70-110 N BLOOD UREA NITROGEN (test code = 13 MG/DL 7-18 N BUN) GLOMERULAR FILTRATION RATE (test 58 estGFR >60 L code = GFR) CREATININE (test code = CREAT) 1.0 MG/DL 0.6-1.0 N CALCIUM (test code = CA) 8.5 MG/DL 8.5-10.1 N [id number] 05:22:00 Test Item Value Reference Range Interpretation Comments MAGNESIUM (test code = MAG) 1.6 MG/DL 1.8-2.4 L CBC W/AUTO [id number] 05:18:00 Test Item Value Reference Range Interpretation Comments WHITE BLOOD CELL (test code = 5.4 K/mm3 3.5-11.0 N WBC) RED BLOOD CELL (test code = RBC) 2.55 M/mm3 4.70-6.10 L HEMOGLOBIN (test code = HGB) 8.3 G/DL 10.4-14.9 L HEMATOCRIT (test code = HCT) 25.6 % 31.5-44.1 L MEAN CELL VOLUME (test code = 100.4 Fl 84.5-98.6 H MCV) MEAN CELL HGB (test code = MCH) 32.5 pg 27.0-34.2 N MEAN CELL HGB CONCETRATION (test 32.4 G/DL 31.5-34.0 N code = MCHC) RED CELL DISTRIBUTION WIDTH (test 17.6 SD 11.5-14.5 H code = RDW) PLATELET COUNT (test code = PLT) 160.0 K/mm3 150-450 N MEAN PLATELET VOLUME (test code = 10.40 fL 7.0-10.5 N MPV) NEUTROPHIL % (test code = NT%) 47.7 % 40-76 N LYMPHOCYTE % (test code = LY%) 32.8 % 20.5-51.1 N MONOCYTE % (test code = MO%) 11.3 % 1.7-9.3 H EOSINOPHIL % (test code = EO%) 7.6 % 0.0-6.0 H BASOPHIL % (test code = BA%) 0.6 % 0.0-2.0 N NEUTROPHIL # (test code = NT#) 2.58 K/mm3 1.8-7.6 N LYMPHOCYTE # (test code = LY#) 1.8 K/mm3 0.6-3.2 N MONOCYTE # (test code = MO#) 0.6 K/mm3 0.3-1.1 N EOSINOPHIL # (test code = EO#) 0.4 K/mm3 0.0-0.4 N BASOPHIL # (test code = BA#) 0.0 K/mm3 0.0-0.1 N MANUAL DIFF REQUIRED (test code = NO DIFF/SCN CRITERIA MDIFF) HGB [id number] 22:57:00 Test Item Value Reference Range Interpretation Comments HEMOGLOBIN (test code = HGB) 8.2 G/DL 10.4-14.9 L HEMATOCRIT (test code = HCT) 25.9 % 31.5-44.1 L GLUCOSE BEDSIDE [id number] 20:48:00 Test Item Value Reference Range Interpretation Comments GLUCOSE BEDSIDE TESTING (test code 104 mg/dL 70-110 N = GLUBED) GLUCOSE BEDSIDE [id number] 17:51:00 Test Item Value Reference Range Interpretation Comments GLUCOSE BEDSIDE TESTING (test code 155 mg/dL 70-110 H = GLUBED) GLUCOSE BEDSIDE [id number] 14:20:00 Test Item Value Reference Range Interpretation Comments GLUCOSE BEDSIDE TESTING (test code 105 mg/dL 70-110 N = GLUBED) GLUCOSE BEDSIDE [id number] 12:18:00 Test Item Value Reference Range Interpretation Comments GLUCOSE BEDSIDE TESTING (test code 120 mg/dL 70-110 H = GLUBED) CBC W/AUTO [id number] 07:46:00 Test Item Value Reference Range Interpretation Comments WHITE BLOOD CELL (test code = 4.7 K/mm3 3.5-11.0 N WBC) RED BLOOD CELL (test code = RBC) 2.05 M/mm3 4.70-6.10 L HEMOGLOBIN (test code = HGB) 6.7 G/DL 10.4-14.9 L HEMATOCRIT (test code = HCT) 21.8 % 31.5-44.1 L MEAN CELL VOLUME (test code = 106.3 Fl 84.5-98.6 H MCV) MEAN CELL HGB (test code = MCH) 32.7 pg 27.0-34.2 N MEAN CELL HGB CONCETRATION (test 30.7 G/DL 31.5-34.0 L code = MCHC) RED CELL DISTRIBUTION WIDTH (test 15.0 SD 11.5-14.5 H code = RDW) PLATELET COUNT (test code = PLT) 139.0 K/mm3 150-450 L MEAN PLATELET VOLUME (test code = 10.80 fL 7.0-10.5 H MPV) NEUTROPHIL % (test code = NT%) 50.7 % 40-76 LYMPHOCYTE % (test code = LY%) 31.4 % 20.5-51.1 N MONOCYTE % (test code = MO%) 11.2 % 1.7-9.3 H EOSINOPHIL % (test code = EO%) 5.6 % 0.0-6.0 N BASOPHIL % (test code = BA%) 1.1 % 0.0-2.0 N NEUTROPHIL # (test code = NT#) 2.36 K/mm3 1.8-7.6 N LYMPHOCYTE # (test code = LY#) 1.5 K/mm3 0.6-3.2 N MONOCYTE # (test code = MO#) 0.5 K/mm3 0.3-1.1 N EOSINOPHIL # (test code = EO#) 0.3 K/mm3 0.0-0.4 N BASOPHIL # (test code = BA#) 0.1 K/mm3 0.0-0.1 N MANUAL DIFF REQUIRED (test code = NO DIFF/SCN CRITERIA MDIFF) GLUCOSE BEDSIDE [id number] 19:56:00 Test Item Value Reference Range Interpretation Comments GLUCOSE BEDSIDE TESTING (test code 138 mg/dL 70-110 H = GLUBED) GLUCOSE BEDSIDE [id number] 16:48:00 Test Item Value Reference Range Interpretation Comments GLUCOSE BEDSIDE TESTING (test code 120 mg/dL 70-110 H = GLUBED) - US EXTREM NON VASC [id number] 14:11:00 [facility] [place] [facility] 1945 Age/S: 73 / F [address] Unit #: [id number] Loc: [place] [address] Phys: Latesha Carreon MD Acct: [id number] Dis Date: Status: ADM IN PHONE #: [phone] Exam Date: 11/28/2018 1400 FAX #: Reason: pulsatile hematoma EXAMS: CPT: [id number] US EXTREM NON VASC COMP [id number] EXAM: - USEXTREM NON VASC COMP HISTORY: Pulsatile hematoma Location code:C3 COMPARISON: CT 11/27/2018 TECHNIQUE: Grayscale B-mode and color Doppler sonographic images at site of clinical abnormality about the right inguinal region is seen. FINDINGS: Exam was limited due to patient's body habitus. There is a rounded structure measuring 2.2 x 1.4 cm in size in the right inguinal region with to and fro flow concerning for pseudoaneurysm. IMPRESSION: 1. As above. at 1411 Reported and signed by: Walt Medrano MD CC: Jd Garay DO; Latesha Carreon MD; Edilma Hills MD Technologist: Noemi Meredith Trnscb Date/Time: 11/28/2018 (1411) [email or web address] PAGE 1 Signed Report Name: LILIANA PATHAK [facility] : 1945 Age/S: 73 / F [address] Unit #: [id number] Loc: [place] [address] Phys: Latesha Carreon MD Acct: [id number] Dis Date: Status: ADM IN PHONE #: [phone] Exam Date: 11/28/2018 1400 FAX #: Reason: pulsatile hematoma EXAMS: CPT: [id number] US EXTREM NON VASC COMP [id number] <Continued> Orig Print D/T: S: 11/28/2018 (5225) Probe: PAGE 2 Signed ReportGLUCOSE BEDSIDE [id number] 11:49:00 Test Item Value Reference Range Interpretation Comments GLUCOSE BEDSIDE TESTING (test code = 77 mg/dL 70-110 N GLUBED) BASIC METABOLIC [id number] 09:51:00 Test Item Value Reference Range Interpretation Comments SODIUM (test code = NA) 144 mmol/L 134-147 N POTASSIUM (test code = K) 4.0 mmol/L 3.4-5.0 N CHLORIDE (test code = CL) 112 mmol/L 100-108 H CARBON DIOXIDE (test code = CO2) 28 mmol/L 21-32 N ANION GAP (test code = GAP) 4.0 GAP calc 4.0-15.0 N GLUCOSE (test code = GLU) 80 MG/DL 70-110 N BLOOD UREA NITROGEN (test code = 23 MG/DL 7-18 H BUN) GLOMERULAR FILTRATION RATE (test 52 estGFR >60 L code = GFR) CREATININE (test code = CREAT) 1.1 MG/DL 0.6-1.0 H CALCIUM (test code = CA) 8.4 MG/DL 8.5-10.1 L CBC W/AUTO [id number] 09:39:00 Test Item Value Reference Range Interpretation Comments WHITE BLOOD CELL (test code = 4.8 K/mm3 3.5-11.0 N WBC) RED BLOOD CELL (test code = RBC) 2.12 M/mm3 4.70-6.10 L HEMOGLOBIN (test code = HGB) 6.9 G/DL 10.4-14.9 L HEMATOCRIT (test code = HCT) 22.4 % 31.5-44.1 L MEAN CELL VOLUME (test code = 105.7 Fl 84.5-98.6 H MCV) MEAN CELL HGB (test code = MCH) 32.5 pg 27.0-34.2 N MEAN CELL HGB CONCETRATION (test 30.8 G/DL 31.5-34.0 L code = MCHC) RED CELL DISTRIBUTION WIDTH (test 14.9 SD 11.5-14.5 H code = RDW) PLATELET COUNT (test code = PLT) 138.0 K/mm3 150-450 L MEAN PLATELET VOLUME (test code = 10.90 fL 7.0-10.5 H MPV) NEUTROPHIL % (test code = NT%) 58.7 % 40-76 LYMPHOCYTE % (test code = LY%) 26.4 % 20.5-51.1 N MONOCYTE % (test code = MO%) 10.7 % 1.7-9.3 H EOSINOPHIL % (test code = EO%) 3.8 % 0.0-6.0 N BASOPHIL % (test code = BA%) 0.4 % 0.0-2.0 N NEUTROPHIL # (test code = NT#) 2.81 K/mm3 1.8-7.6 N LYMPHOCYTE # (test code = LY#) 1.3 K/mm3 0.6-3.2 N MONOCYTE # (test code = MO#) 0.5 K/mm3 0.3-1.1 N EOSINOPHIL # (test code = EO#) 0.2 K/mm3 0.0-0.4 N BASOPHIL # (test code = BA#) 0.0 K/mm3 0.0-0.1 N MANUAL DIFF REQUIRED (test code = NO DIFF/SCN CRITERIA MDIFF) GLUCOSE BEDSIDE [id number] 07:24:00 Test Item Value Reference Range Interpretation Comments GLUCOSE BEDSIDE TESTING (test code 105 mg/dL 70-110 N = GLUBED) UA RFLX MICR CULT IF [id number] 02:20:00 Test Item Value Reference Range Interpretation Comments UA COLOR (test code = YELLOW discript YEL/STRAW COLU) UA APPEARANCE (test code CLEAR discript CLEAR = APPU) UA GLUCOSE DIPSTICK (test NEGATIVE mg/dL NEG code = DGLUU) UA BILIRUBIN DIPSTICK NEGATIVE mg/dL NEG (test code = BILU) UA KETONE DIPSTICK (test NEGATIVE mg/dL NEG code = KETU) UA SPECIFIC GRAVITY (test <=1.005 SG 1.005-1.030 code = SGU) UA BLOOD DIPSTICK (test NEGATIVE mg/DL NEG code = GARDENIA) UA PH DIPSTICK (test code 6.0 pH UNITS 5.0-7.0 = ERENDIRA) UA PROTEIN DIPSTICK (test NEGATIVE mg/dL NEG code = PROU) UA UROBILINIOGEN DIPSTICK 0.2 mg/dL <2.0 (test code = URO) UA NITRITE DIPSTICK (test NEGATIVE SCREEN NEG code = AMOS) UA LEUKOCYTE ESTERASE 1+ Leuk/mcL NEGATIVE A DIPSTICK (test code = LEUU) UA WBC (test code = WBCU) 10-20 #WBC/HPF 0-3 A UA RBC (test code = RBCU) 1-3 #RBC/HPF 0-3 UA BACTERIA (test code = 3+ /HPF NONE-TRACE A BACU) UA SQUAMOUS CELLS (test 1+ /HPF NONE A code = SQU) UA CULTURE NEEDED? (test YES,WBC>10 & EPI<25 Culture CHK code = UACULT) Criteria SOURCE OF URINE: CLEAN CATCHless than 18 yrs old, neutropenic, or urological surgery? NOPrimary Indication for Culture: Dysuria/FrequencyUA RFLX MICR CULT IF [id number] 02:04:00 Test Item Value Reference Range Interpretation Comments UA COLOR (test code = COLU) YELLOW discript YEL/STRAW UA APPEARANCE (test code = CLEAR discript CLEAR APPU) UA GLUCOSE DIPSTICK (test NEGATIVE mg/dL NEG code = DGLUU) UA BILIRUBIN DIPSTICK (test NEGATIVE mg/dL NEG code = BILU) UA KETONE DIPSTICK (test code NEGATIVE mg/dL NEG = KETU) UA SPECIFIC GRAVITY (test <=1.005 SG 1.005-1.030 code = SGU) UA BLOOD DIPSTICK (test code NEGATIVE mg/DL NEG = GARDENIA) UA PH DIPSTICK (test code = 6.0 pH UNITS 5.0-7.0 ERENDIRA) UA PROTEIN DIPSTICK (test NEGATIVE mg/dL NEG code = PROU) UA UROBILINIOGEN DIPSTICK 0.2 mg/dL <2.0 (test code = URO) UA NITRITE DIPSTICK (test NEGATIVE SCREEN NEG code = AMOS) UA LEUKOCYTE ESTERASE 1+ Leuk/mcL NEGATIVE A DIPSTICK (test code = LEUU) UA CULTURE NEEDED? (test code Criteria Culture CHK = UACULT) SOURCE OF URINE: CLEAN CATCHless than 18 yrs old, neutropenic, or urological surgery? NOPrimary Indication for Culture: Dysuria/FrequencyCOMPREHENSIVE METABOLIC [id number] 22:40:00 Test Item Value Reference Range Interpretation Comments SODIUM (test code = NA) 140 mmol/L 134-147 N POTASSIUM (test code = K) 3.8 mmol/L 3.4-5.0 N CHLORIDE (test code = CL) 108 mmol/L 100-108 N CARBON DIOXIDE (test code = CO2) 28 mmol/L 21-32 N ANION GAP (test code = GAP) 4.0 GAP calc 4.0-15.0 N GLUCOSE (test code = GLU) 124 MG/DL 70-110 H BLOOD UREA NITROGEN (test code = 23 MG/DL 7-18 H BUN) GLOMERULAR FILTRATION RATE (test 47 estGFR >60 L code = GFR) CREATININE (test code = CREAT) 1.2 MG/DL 0.6-1.0 H TOTAL PROTEIN (test code = PROT) 5.9 G/DL 6.4-8.2 L ALBUMIN (test code = ALB) 3.0 G/DL 3.4-5.0 L GLOBULIN (test code = GLOB) 2.9 GM/dL ALBUMIN/GLOBULIN RATIO (test 1.0 RATIO 1.2-2.2 L code = A/G) CALCIUM (test code = CA) 8.7 MG/DL 8.5-10.1 N BILIRUBIN TOTAL (test code = 0.30 MG/DL 0.2-1.2 N BILT) SGOT/AST (test code = AST) 14 Unit/L 15-37 L SGPT/ALT (test code = ALT) 14 Unit/L 12-78 N ALKALINE PHOSPHATASE TOTAL (test 72 Unit/L 45-117 N code = ALKP) CBC W/AUTO [id number] 22:22:00 Test Item Value Reference Range Interpretation Comments WHITE BLOOD CELL (test code = 6.7 K/mm3 3.5-11.0 N WBC) RED BLOOD CELL (test code = RBC) 2.35 M/mm3 4.70-6.10 L HEMOGLOBIN (test code = HGB) 7.7 G/DL 10.4-14.9 L HEMATOCRIT (test code = HCT) 24.5 % 31.5-44.1 L MEAN CELL VOLUME (test code = 104.3 Fl 84.5-98.6 H MCV) MEAN CELL HGB (test code = MCH) 32.8 pg 27.0-34.2 N MEAN CELL HGB CONCETRATION (test 31.4 G/DL 31.5-34.0 L code = MCHC) RED CELL DISTRIBUTION WIDTH (test 14.9 SD 11.5-14.5 H code = RDW) PLATELET COUNT (test code = PLT) 151.0 K/mm3 150-450 N MEAN PLATELET VOLUME (test code = 10.50 fL 7.0-10.5 N MPV) NEUTROPHIL % (test code = NT%) 67.2 % 40-76 N LYMPHOCYTE % (test code = LY%) 19.8 % 20.5-51.1 L MONOCYTE % (test code = MO%) 9.2 % 1.7-9.3 N EOSINOPHIL % (test code = EO%) 3.3 % 0.0-6.0 N BASOPHIL % (test code = BA%) 0.5 % 0.0-2.0 N NEUTROPHIL # (test code = NT#) 4.48 K/mm3 1.8-7.6 N LYMPHOCYTE # (test code = LY#) 1.3 K/mm3 0.6-3.2 N MONOCYTE # (test code = MO#) 0.6 K/mm3 0.3-1.1 N EOSINOPHIL # (test code = EO#) 0.2 K/mm3 0.0-0.4 N BASOPHIL # (test code = BA#) 0.0 K/mm3 0.0-0.1 N MANUAL DIFF REQUIRED (test code = NO DIFF/SCN CRITERIA MDIFF) - CT PELVIS W/O [id number] 21:33:00 Name: DANIA PATHAKA [facility] : 1945 Age/S: 73 / F [id number] Unit #: [id number] Loc: [place] [address] Phys: Fariba Murray MD Acct: [id number] Dis Date: Status: REG ER PHONE #: [phone] Exam Date: 11/27/2018 8304 FAX #: Reason: right in guinal mass, s/p procedure EXAMS: CPT: [id number] CT PELVIS W/O CONTRAST [id number] CLINICAL INFORMATION: Right inguinal mass after procedure. Dictation Location: R 16 COMPARISON: 09/07/2017 reported small bowel enteritis. Technique: CT pelvis with reconstructions was done without contrast. Appropriate dose reduction and image optimization technique was used. DLP 544 mGy-cm.. FINDINGS: There is abnormality in the right psoas region with inflammatory thickening of the psoas muscles and the overlying abdominal muscles. The right iliopsoas at the iliac level is 7.0 x 3.5 cm in the axial plane and 8.1 cm cephalocaudad. There is induration in the mesenteric fat in this area and the appendix is notpositively identified however there may be a thickened enlarged appendix. There is diverticulosis of the colon and the inflammatory process could be diverticulitis. No gynecologic mass identified. No free air in the pelvis is noted. There is degenerative change in the spine. IMPRESSION: 1. Thickened psoas muscle and inflammatory process of the right lower quadrant which was not seen on the comparison study. This could be seen withdiverticulitis and/or appendicitis and localized inflammation with incipient psoas abscess. 2. Spondylosis. 3. Surgical consultation is suggested. at 2132 Reported and signed by: Miki Lane M.D. CC: Fariba Murray MD; Jd Garay DO; Diana BARKER Technologist:Laine Bautista RT(R)(CT)(MRI); CTDI: DLP: Trnscb Date/Time: 11/27/2018 (2132) [id number] Orig Print D/T: S: 11/27/2018 (2135) PAGE 1 Signed ReportGLYCOSYLATED HEMOGLOBIN [id number] 12:57:00 Test Item Value Reference Range Interpretation Comments GLYCOSYLATED HEMOGLOBIN (HA1C) 5.1 % A1C 4.2-6.3 N (test code = GLYHGB) ESTIMATED AVERAGE GLUCOSE (test 100 MG/DLest code = EAG) Comment: please add to this morning labGLUCOSE BEDSIDE [id number] 12:06:00 Test Item Value Reference Range Interpretation Comments GLUCOSE BEDSIDE TESTING (test code 178 mg/dL 70-110 H = GLUBED) GLUCOSE BEDSIDE [id number] 07:57:00 Test Item Value Reference Range Interpretation Comments GLUCOSE BEDSIDE TESTING (test code = 95 mg/dL 70-110 N GLUBED) GLUCOSE BEDSIDE [id number] 07:34:00 Test Item Value Reference Range Interpretation Comments GLUCOSE BEDSIDE TESTING (test code = 94 mg/dL 70-110 N GLUBED) BASIC METABOLIC [id number] 05:39:00 Test Item Value Reference Range Interpretation Comments SODIUM (test code = NA) 146 mmol/L 134-147 N POTASSIUM (test code = K) 3.9 mmol/L 3.4-5.0 N CHLORIDE (test code = CL) 116 mmol/L 100-108 H CARBON DIOXIDE (test code = CO2) 24 mmol/L 21-32 N ANION GAP (test code = GAP) 6.0 GAP calc 4.0-15.0 N GLUCOSE (test code = GLU) 83 MG/DL 70-110 N BLOOD UREA NITROGEN (test code = 40 MG/DL 7-18 H BUN) GLOMERULAR FILTRATION RATE (test 47 estGFR >60 L code = GFR) CREATININE (test code = CREAT) 1.2 MG/DL 0.6-1.0 H CALCIUM (test code = CA) 8.5 MG/DL 8.5-10.1 N [id number] 05:39:00 Test Item Value Reference Range Interpretation Comments PHOSPHOROUS (test code = PHOS) 2.7 MG/DL 2.5-4.9 N [id number] 05:39:00 Test Item Value Reference Range Interpretation Comments MAGNESIUM (test code = MAG) 1.5 MG/DL 1.8-2.4 L CBC W/AUTO [id number] 05:16:00 Test Item Value Reference Range Interpretation Comments WHITE BLOOD CELL (test code = 4.7 K/mm3 3.5-11.0 N WBC) RED BLOOD CELL (test code = RBC) 2.30 M/mm3 4.70-6.10 L HEMOGLOBIN (test code = HGB) 7.6 G/DL 10.4-14.9 L HEMATOCRIT (test code = HCT) 23.7 % 31.5-44.1 L MEAN CELL VOLUME (test code = 103.0 Fl 84.5-98.6 H MCV) MEAN CELL HGB (test code = MCH) 33.0 pg 27.0-34.2 N MEAN CELL HGB CONCETRATION (test 32.1 G/DL 31.5-34.0 N code = MCHC) RED CELL DISTRIBUTION WIDTH (test 15.1 SD 11.5-14.5 H code = RDW) PLATELET COUNT (test code = PLT) 132.0 K/mm3 150-450 L MEAN PLATELET VOLUME (test code = 10.30 fL 7.0-10.5 N MPV) NEUTROPHIL % (test code = NT%) 44.8 % 40-76 LYMPHOCYTE % (test code = LY%) 36.9 % 20.5-51.1 N MONOCYTE % (test code = MO%) 13.1 % 1.7-9.3 H EOSINOPHIL % (test code = EO%) 4.4 % 0.0-6.0 N BASOPHIL % (test code = BA%) 0.8 % 0.0-2.0 N NEUTROPHIL # (test code = NT#) 2.11 K/mm3 1.8-7.6 N LYMPHOCYTE # (test code = LY#) 1.7 K/mm3 0.6-3.2 N MONOCYTE # (test code = MO#) 0.6 K/mm3 0.3-1.1 N EOSINOPHIL # (test code = EO#) 0.2 K/mm3 0.0-0.4 N BASOPHIL # (test code = BA#) 0.0 K/mm3 0.0-0.1 N MANUAL DIFF REQUIRED (test code = NO DIFF/SCN CRITERIA MDIFF) GLUCOSE BEDSIDE [id number] 20:33:00 Test Item Value Reference Range Interpretation Comments GLUCOSE BEDSIDE TESTING (test code 123 mg/dL 70-110 H = GLUBED) GLUCOSE BEDSIDE [id number] 16:37:00 Test Item Value Reference Range Interpretation Comments GLUCOSE BEDSIDE TESTING (test code 103 mg/dL 70-110 N = GLUBED) GLUCOSE BEDSIDE [id number] 11:37:00 Test Item Value Reference Range Interpretation Comments GLUCOSE BEDSIDE TESTING (test code 112 mg/dL 70-110 H = GLUBED) CBC W/AUTO [id number] 06:09:00 Test Item Value Reference Range Interpretation Comments WHITE BLOOD CELL (test code = 7.2 K/mm3 3.5-11.0 N WBC) RED BLOOD CELL (test code = RBC) 2.77 M/mm3 4.70-6.10 L HEMOGLOBIN (test code = HGB) 8.9 G/DL 10.4-14.9 L HEMATOCRIT (test code = HCT) 27.6 % 31.5-44.1 L MEAN CELL VOLUME (test code = 99.6 Fl 84.5-98.6 H MCV) MEAN CELL HGB (test code = MCH) 32.1 pg 27.0-34.2 N MEAN CELL HGB CONCETRATION (test 32.2 G/DL 31.5-34.0 N code = MCHC) RED CELL DISTRIBUTION WIDTH (test 15.2 SD 11.5-14.5 H code = RDW) PLATELET COUNT (test code = PLT) 189.0 K/mm3 150-450 N MEAN PLATELET VOLUME (test code = 10.90 fL 7.0-10.5 H MPV) NEUTROPHIL % (test code = NT%) 66.9 % 40-76 LYMPHOCYTE % (test code = LY%) 18.9 % 20.5-51.1 L MONOCYTE % (test code = MO%) 11.3 % 1.7-9.3 H EOSINOPHIL % (test code = EO%) 2.5 % 0.0-6.0 N BASOPHIL % (test code = BA%) 0.4 % 0.0-2.0 N NEUTROPHIL # (test code = NT#) 4.83 K/mm3 1.8-7.6 N LYMPHOCYTE # (test code = LY#) 1.4 K/mm3 0.6-3.2 N MONOCYTE # (test code = MO#) 0.8 K/mm3 0.3-1.1 N EOSINOPHIL # (test code = EO#) 0.2 K/mm3 0.0-0.4 N BASOPHIL # (test code = BA#) 0.0 K/mm3 0.0-0.1 N MANUAL DIFF REQUIRED (test code = NO DIFF/SCN CRITERIA MDIFF) BASIC METABOLIC [id number] 06:05:00 Test Item Value Reference Range Interpretation Comments SODIUM (test code = NA) 144 mmol/L 134-147 N POTASSIUM (test code = K) 4.9 mmol/L 3.4-5.0 N CHLORIDE (test code = CL) 116 mmol/L 100-108 H CARBON DIOXIDE (test code = CO2) 19 mmol/L 21-32 L ANION GAP (test code = GAP) 9.0 GAP calc 4.0-15.0 N GLUCOSE (test code = GLU) 119 MG/DL 70-110 H BLOOD UREA NITROGEN (test code = 68 MG/DL 7-18 H BUN) GLOMERULAR FILTRATION RATE (test 28 estGFR >60 L code = GFR) CREATININE (test code = CREAT) 1.9 MG/DL 0.6-1.0 H CALCIUM (test code = CA) 9.6 MG/DL 8.5-10.1 N GLUCOSE BEDSIDE [id number] 22:00:00 Test Item Value Reference Range Interpretation Comments GLUCOSE BEDSIDE TESTING (test code 107 mg/dL 70-110 N = GLUBED) TROPONIN I [id number] 19:20:00 Test Item Value Reference Range Interpretation Comments TROPONIN I RAPID 0.00 ng/mL 0.00-0.08 N - The use o f serial (test code = sampling and te sting TROPIRAP) protocol is a recommended pra ctice- An elevated tro ponin level alone is often not sufficient for diagnosis of my ocardial infarction. LACTIC ACID [id number] 18:25:00 Test Item Value Reference Range Interpretation Comments LACTIC ACID POC (test code = 1.09 MMOL/L 0.90-1.70 N LACTP) GLUCOSE BEDSIDE [id number] 17:44:00 Test Item Value Reference Range Interpretation Comments GLUCOSE BEDSIDE TESTING (test code 115 mg/dL 70-110 H = GLUBED) BASIC METABOLIC [id number] 16:19:00 Test Item Value Reference Range Interpretation Comments SODIUM (test code = NA) 134 mmol/L 134-147 N POTASSIUM (test code = K) 6.2 mmol/L 3.4-5.0 HH CHLORIDE (test code = CL) 109 mmol/L 100-108 H CARBON DIOXIDE (test code = CO2) 18 mmol/L 21-32 L ANION GAP (test code = GAP) 7.0 GAP calc 4.0-15.0 N GLUCOSE (test code = GLU) 169 MG/DL 70-110 H BLOOD UREA NITROGEN (test code = 91 MG/DL 7-18 H BUN) GLOMERULAR FILTRATION RATE (test 18 estGFR >60 L code = GFR) CREATININE (test code = CREAT) 2.7 MG/DL 0.6-1.0 H CALCIUM (test code = CA) 10.3 MG/DL 8.5-10.1 H Completed by Nursing: NOHEPATIC FUNCTION [id number] 16:19:00 Test Item Value Reference Range Interpretation Comments TOTAL PROTEIN (test code = PROT) 7.1 G/DL 6.4-8.2 N ALBUMIN (test code = ALB) 3.6 G/DL 3.4-5.0 N BILIRUBIN TOTAL (test code = BILT) 0.40 MG/DL 0.2-1.2 N BILIRUBIN DIRECT (test code = 0.10 MG/DL 0.00-0.30 N BILD) BILIRUBIN INDIRECT (test code = 0.30 MG/DL 0.2-1.2 N BILIND) SGOT/AST (test code = AST) 18 Unit/L 15-37 N SGPT/ALT (test code = ALT) 18 Unit/L 12-78 N ALKALINE PHOSPHATASE TOTAL (test 72 Unit/L 45-117 N code = ALKP) Completed by Nursing: [id number] 16:19:00 Test Item Value Reference Range Interpretation Comments LIPASE (test code = LIP) 1715 Unit/L 114-286 H Completed by Nursing: [id number] 16:19:00 Test Item Value Reference Range Interpretation Comments TROPONIN-I (test < 0.015 NG/ML 0.000-0.045 N Negative: </= 0.045 code = TROPI) Positive: >/= 0.046 Correlation wit h serial results, other cardiac markers, and cl inical findings is nec essary to determine the c linical significance of this result. Quantit ative results using d ifferent methodologies s hould not be compared to one another as nume rical results may johnson yby method. Completed by Nursing: NOCBC W/AUTO [id number] 15:55:00 Test Item Value Reference Range Interpretation Comments WHITE BLOOD CELL (test code = 7.7 K/mm3 3.5-11.0 N WBC) RED BLOOD CELL (test code = RBC) 3.34 M/mm3 4.70-6.10 L HEMOGLOBIN (test code = HGB) 10.9 G/DL 10.4-14.9 N HEMATOCRIT (test code = HCT) 33.4 % 31.5-44.1 N MEAN CELL VOLUME (test code = 100.0 Fl 84.5-98.6 H MCV) MEAN CELL HGB (test code = MCH) 32.6 pg 27.0-34.2 N MEAN CELL HGB CONCETRATION (test 32.6 G/DL 31.5-34.0 N code = MCHC) RED CELL DISTRIBUTION WIDTH (test 15.2 SD 11.5-14.5 H code = RDW) PLATELET COUNT (test code = PLT) 247.0 K/mm3 150-450 N MEAN PLATELET VOLUME (test code = 10.40 fL 7.0-10.5 N MPV) NEUTROPHIL % (test code = NT%) 53.5 % 40-76 N LYMPHOCYTE % (test code = LY%) 33.6 % 20.5-51.1 N MONOCYTE % (test code = MO%) 9.5 % 1.7-9.3 H EOSINOPHIL % (test code = EO%) 2.9 % 0.0-6.0 N BASOPHIL % (test code = BA%) 0.5 % 0.0-2.0 N NEUTROPHIL # (test code = NT#) 4.10 K/mm3 1.8-7.6 N LYMPHOCYTE # (test code = LY#) 2.6 K/mm3 0.6-3.2 N MONOCYTE # (test code = MO#) 0.7 K/mm3 0.3-1.1 N EOSINOPHIL # (test code = EO#) 0.2 K/mm3 0.0-0.4 N BASOPHIL # (test code = BA#) 0.0 K/mm3 0.0-0.1 N MANUAL DIFF REQUIRED (test code = NO DIFF/SCN CRITERIA MDIFF) GLUCOSE BEDSIDE [id number] 15:49:00 Test Item Value Reference Range Interpretation Comments GLUCOSE BEDSIDE TESTING (test code 157 mg/dL 70-110 H = GLUBED) - XR CHEST 1 [id number] 15:43:00 Name: LILIANA PATHAK [facility] : 1945 Age/S: 73 / F [id number] Unit #: [id number] Loc: [place] [address] Phys: Ruy Sauceda MD Acct: [id number] Dis Date: Status: REG ER PHONE #: [phone] Exam Date: 11/23/2018 5671 FAX #: Reason: abdominal pain EXAMS: CPT: [id number] XR CHEST 1 V 85059 Fluoro Time: DAP (Gy m2): Air Kerma (mGy): Chest Radiograph History: abdominal pain Comparison: August 05, 2018 Location: R16 A single frontal view of the chest is submitted. The heart appears unchanged in size. Pulmonary vasculature is unremarkable. The visualized lung pinto appear to be free of disease. The bones appear unchanged. IMPRESSION: There is no radiographic evidence of acute cardiopulmonary disease. at 1543 Reported and signed by: Jon Griffith M.D. CC: Jd Garay DO; Ruy Sauceda MD PAGE 1 Signed Report Name: LILIANA PATHAK [facility] : 1945 Age/S: 73 / F [id number] Unit #: [id number] Loc: [place] [address] Phys: Ruy Sauceda MD Acct: [id number] DisDate: Status: REG ER PHONE #: [phone] Exam Date: 11/23/2018 1536 FAX #: Reason: abdominal pain EXAMS: CPT: [id number] CHEST 1 V [id number] Fluoro Time: DAP (Gy m2): Air Kerma (mGy): <Continued> Technologist: Raman Whitlock, RT(R)(CT); ... Trnscb Date/Time: 11/23/2018 (5793) t.SDR.PMT Orig Print D/T: S: 11/23/2018 (4213) PAGE 2 Signed ReportCHEMISTRY 8 [id number] 15:40:00 Test Item Value Reference Range Interpretation Comments ISTAT-SODIUM (test code = NAP) mmol/L 135-146 ISTAT-POTASSIUM (test code = KP) mmol/L 3.5-4.9 ISTAT-CHLORIDE (test code = CLP) mmol/L 98-109 ISTAT-CARBON DIOXIDE (test code = mmol/L 24-29 L ISTAT-CO2) ISTAT CALCIUM IONIZED (test code = mmol/L 1.12-1.32 ISTAT-SIM) ISTAT-GLUCOSE (test code = GLUP) mg/dL 70-105 H ISTAT-BUN (test code = BUNP) mg/dL 8-26 H BEDSIDE CREATININE (test code = mg/dL 0.6-1.3 HH CREATBED) GLOMERULAR FILTRATION RATE POC (test 17 39-90 L code = GFRBED) CHEMISTRY 8 [id number] 15:40:00 Test Item Value Reference Range Interpretation Comments ISTAT-SODIUM (test code = NAP) 132 mmol/L 135-146 L ISTAT-POTASSIUM (test code = KP) 6.3 mmol/L 3.5-4.9 HH ISTAT-CHLORIDE (test code = CLP) 107 mmol/L 98-109 N ISTAT-CARBON DIOXIDE (test code = 18 mmol/L 24-29 L ISTAT-CO2) ISTAT CALCIUM IONIZED (test code 1.38 mmol/L 1.12-1.32 H = ISTAT-SIM) ISTAT-GLUCOSE (test code = GLUP) 170 mg/dL 70-105 H ISTAT-BUN (test code = BUNP) 97 mg/dL 8-26 H BEDSIDE CREATININE (test code = 2.9 mg/dL 0.6-1.3 HH CREATBED) GLOMERULAR FILTRATION RATE POC 17 39-90 L (test code = GFRBED) - XR WRIST 3 + V [id number] 17:44:00 Name: SINGHESTEFANIALILIANA : 1945 Age/S:73 /F [address] [facility] Unit#:[id number] Loc: [place], [place] [address] Phys: Stephanie Paul 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 Other included osseous structures are intact. No cortical destruction or periosteal reaction. Osteopenia. 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 No soft tissue swelling. IMPRESSION: Acute impacted intra-articular fracture of the distal radius. at 6254 Reported and signed by: Regla Neri D.O. 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 [facility] CBC W/AUTO [id number] 14:16:00 Test Item Value Reference Range Interpretation Comments WHITE BLOOD CELL (test 8.1 K/mm3 4.5-12.5 N code = WBC) RED BLOOD CELL (test code 3.24 mill/mm3 3.7-5.2 L = RBC) HEMOGLOBIN (test code = 10.0 gram/dL 11.5-15.5 L HGB) HEMATOCRIT (test code = 34.0 % 36.0-46.0 L HCT) MEAN CELL VOLUME (test 104.9 fL 80-98 H code = MCV) MEAN CELL HGB (test code 30.9 picogram 27.0-33.0 N = MCH) MEAN CELL HGB 29.4 gram/dL 33.0-36.0 L CONCETRATION (test code = MCHC) RED CELL DISTRIBUTION 15.9 % 11.6-16.2 N WIDTH (test code = RDW) RED CELL DISTRIBUTION 62.2 fL 37.0-51.0 H WIDTH SD (test code = RDW-SD) PLATELET COUNT (test code 194 K/mm3 150-450 = PLT) MEAN PLATELET VOLUME 11.0 fL 6.7-11.0 N (test code = MPV) NEUTROPHIL % (test code = 62.9 % 39.0-69.0 N NT%) IMMATURE GRANULOCYTE % 0.6 % 0.0-5.0 N (test code = IG%) LYMPHOCYTE % (test code = 19.6 % 25.0-55.0 L LY%) MONOCYTE % (test code = 13.9 % 0.0-10.0 H MO%) EOSINOPHIL % (test code = 2.5 % 0.0-5.0 N EO%) BASOPHIL % (test code = 0.5 % 0.0-1.0 N BA%) NUCLEATED RBC % (test 0.0 % 0-0 N code = NRBC%) NEUTROPHIL # (test code = 5.07 K/mm3 1.8-7.7 N NT#) IMMATURE GRANULOCYTE # 0.05 x10 3/uL 0-0.03 H (test code = IG#) LYMPHOCYTE # (test code = 1.58 K/mm3 1.0-5.0 N LY#) MONOCYTE # (test code = 1.12 K/mm3 0-0.8 H MO#) EOSINOPHIL # (test code = 0.20 K/mm3 0.0-0.5 N EO#) BASOPHIL # (test code = 0.04 K/mm3 0.0-0.2 N BA#) NUCLEATED RBC # (test 0.00 K/mm3 0.0-0.1 N code = NRBC#) MANUAL DIFF REQUIRED NO, ONLY SCAN NEEDED (test code = MDIFF) DIFFERENTIAL [id number] 14:16:00 Test Item Value Reference Range Interpretation Comments STAIN ACCEPTABILITY (test STAIN ACCEPTABLE code = STN ACCEPTABLE) ANISOCYTOSIS (test code = 1+ ANISO) MICROCYTOSIS (test code = 1+ MICR) PLATELET ESTIMATE (test code ADEQUATE = PLTEST) PLATELET MORPHOLOGY (test SIZE VARIABLE code = PLTMORPH) BASIC METABOLIC [id number] 13:49:00 Test Item Value Reference Range Interpretation Comments SODIUM (test code = 141 mmol/L 136-145 N NA) POTASSIUM (test code 4.6 mmol/L 3.5-5.1 N = K) CHLORIDE (test code = 106.0 mmol/L 98-107 N CL) CARBON DIOXIDE (test 30.0 mmol/L 21-32 N code = CO2) ANION GAP (test code 9.6 10-20 L = GAP) GLUCOSE (test code = 82 mg/dL 74-106 N GLU) BLOOD UREA NITROGEN 27 mg/dL 7-18 H (test code = BUN) GLOMERULAR FILTRATION 44 mL/min >=60 Estima toya GFR by RATE (test code = using Duc fied MDRD GFR) formula.Chronic kidney disease is defined as eith er kidney damageor GFR <60 mL/min/1.73 m2 for >3 months. CREATININE (test code 1.20 mg/dL 0.55-1.02 H Note change in = CREAT) reference range due to change in reagent. BUN/CREATININE RATIO 22.5 10-20 H (test code = BUN/CREA) CALCIUM (test code = 9.0 mg/dL 8.5-10.1 N CA) BASIC METABOLIC [id number] 13:30:00 Test Item Value Reference Range Interpretation Comments SODIUM (test code = NA) 141 mmol/L 136-145 N POTASSIUM (test code = K) 4.6 mmol/L 3.5-5.1 N CHLORIDE (test code = CL) 106.0 mmol/L 98-107 N CARBON DIOXIDE (test code = CO2) mmol/L 21-32 ANION GAP (test code = GAP) 10-20 GLUCOSE (test code = GLU) mg/dL 74-106 BLOOD UREA NITROGEN (test code = mg/dL 7-18 BUN) GLOMERULAR FILTRATION RATE (test mL/min >=60 code = GFR) CREATININE (test code = CREAT) mg/dL 0.55-1.02 BUN/CREATININE RATIO (test code 10-20 = BUN/CREA) CALCIUM (test code = CA) mg/dL 8.5-10.1 CBC W/AUTO [id number] 13:26:00 Test Item Value Reference Range Interpretation Comments WHITE BLOOD CELL (test 8.1 K/mm3 4.5-12.5 N code = WBC) RED BLOOD CELL (test code 3.24 mill/mm3 3.7-5.2 L = RBC) HEMOGLOBIN (test code = 10.0 gram/dL 11.5-15.5 L HGB) HEMATOCRIT (test code = 34.0 % 36.0-46.0 L HCT) MEAN CELL VOLUME (test 104.9 fL 80-98 H code = MCV) MEAN CELL HGB (test code 30.9 picogram 27.0-33.0 N = MCH) MEAN CELL HGB 29.4 gram/dL 33.0-36.0 L CONCETRATION (test code = MCHC) RED CELL DISTRIBUTION 15.9 % 11.6-16.2 N WIDTH (test code = RDW) RED CELL DISTRIBUTION 62.2 fL 37.0-51.0 H WIDTH SD (test code = RDW-SD) PLATELET COUNT (test code 194 K/mm3 150-450 = PLT) MEAN PLATELET VOLUME 11.0 fL 6.7-11.0 N (test code = MPV) NEUTROPHIL % (test code = 62.9 % 39.0-69.0 N NT%) IMMATURE GRANULOCYTE % 0.6 % 0.0-5.0 N (test code = IG%) LYMPHOCYTE % (test code = 19.6 % 25.0-55.0 L LY%) MONOCYTE % (test code = 13.9 % 0.0-10.0 H MO%) EOSINOPHIL % (test code = 2.5 % 0.0-5.0 N EO%) BASOPHIL % (test code = 0.5 % 0.0-1.0 N BA%) NUCLEATED RBC % (test 0.0 % 0-0 N code = NRBC%) NEUTROPHIL # (test code = 5.07 K/mm3 1.8-7.7 N NT#) IMMATURE GRANULOCYTE # 0.05 x10 3/uL 0-0.03 H (test code = IG#) LYMPHOCYTE # (test code = 1.58 K/mm3 1.0-5.0 N LY#) MONOCYTE # (test code = 1.12 K/mm3 0-0.8 H MO#) EOSINOPHIL # (test code = 0.20 K/mm3 0.0-0.5 N EO#) BASOPHIL # (test code = 0.04 K/mm3 0.0-0.2 N BA#) NUCLEATED RBC # (test 0.00 K/mm3 0.0-0.1 N code = NRBC#) MANUAL DIFF REQUIRED NO, ONLY SCAN NEEDED (test code = MDIFF) DIFFERENTIAL [id number] 13:26:00 Test Item Value Reference Range Interpretation Comments STAIN ACCEPTABILITY (test code = STN ACCEPTABLE) MORPHOLOGY COMMENT (test code = MOC) PLATELET ESTIMATE (test code = PLTEST) PLATELET MORPHOLOGY (test code = PLTMORPH) CBC W/AUTO [id number] 13:25:00 Test Item Value Reference Range Interpretation Comments WHITE BLOOD CELL (test 8.1 K/mm3 4.5-12.5 N code = WBC) RED BLOOD CELL (test code 3.24 mill/mm3 3.7-5.2 L = RBC) HEMOGLOBIN (test code = 10.0 gram/dL 11.5-15.5 L HGB) HEMATOCRIT (test code = 34.0 % 36.0-46.0 L HCT) MEAN CELL VOLUME (test 104.9 fL 80-98 H code = MCV) MEAN CELL HGB (test code 30.9 picogram 27.0-33.0 N = MCH) MEAN CELL HGB 29.4 gram/dL 33.0-36.0 L CONCETRATION (test code = MCHC) RED CELL DISTRIBUTION 15.9 % 11.6-16.2 N WIDTH (test code = RDW) RED CELL DISTRIBUTION 62.2 fL 37.0-51.0 H WIDTH SD (test code = RDW-SD) PLATELET COUNT (test code 194 K/mm3 150-450 = PLT) MEAN PLATELET VOLUME 11.0 fL 6.7-11.0 N (test code = MPV) NEUTROPHIL % (test code = 62.9 % 39.0-69.0 N NT%) IMMATURE GRANULOCYTE % 0.6 % 0.0-5.0 N (test code = IG%) LYMPHOCYTE % (test code = 19.6 % 25.0-55.0 L LY%) MONOCYTE % (test code = 13.9 % 0.0-10.0 H MO%) EOSINOPHIL % (test code = 2.5 % 0.0-5.0 N EO%) BASOPHIL % (test code = 0.5 % 0.0-1.0 N BA%) NUCLEATED RBC % (test 0.0 % 0-0 N code = NRBC%) NEUTROPHIL # (test code = 5.07 K/mm3 1.8-7.7 N NT#) IMMATURE GRANULOCYTE # 0.05 x10 3/uL 0-0.03 H (test code = IG#) LYMPHOCYTE # (test code = 1.58 K/mm3 1.0-5.0 N LY#) MONOCYTE # (test code = 1.12 K/mm3 0-0.8 H MO#) EOSINOPHIL # (test code = 0.20 K/mm3 0.0-0.5 N EO#) BASOPHIL # (test code = 0.04 K/mm3 0.0-0.2 N BA#) NUCLEATED RBC # (test 0.00 K/mm3 0.0-0.1 N code = NRBC#) MANUAL DIFF REQUIRED NO, ONLY SCAN NEEDED (test code = MDIFF) DIFFERENTIAL [id number] 13:25:00 Test Item Value Reference Range Interpretation Comments STAIN ACCEPTABILITY (test code = STN ACCEPTABLE) CABOT RINGS (test code = CAB) MORPHOLOGY COMMENT (test code = MOC) PLATELET ESTIMATE (test code = PLTEST) PLATELET MORPHOLOGY (test code = PLTMORPH) CBC W/AUTO [id number] 13:25:00 Test Item Value Reference Range Interpretation Comments WHITE BLOOD CELL (test 8.1 K/mm3 4.5-12.5 N code = WBC) RED BLOOD CELL (test code 3.24 mill/mm3 3.7-5.2 L = RBC) HEMOGLOBIN (test code = 10.0 gram/dL 11.5-15.5 L HGB) HEMATOCRIT (test code = 34.0 % 36.0-46.0 L HCT) MEAN CELL VOLUME (test 104.9 fL 80-98 H code = MCV) MEAN CELL HGB (test code 30.9 picogram 27.0-33.0 N = MCH) MEAN CELL HGB 29.4 gram/dL 33.0-36.0 L CONCETRATION (test code = MCHC) RED CELL DISTRIBUTION 15.9 % 11.6-16.2 N WIDTH (test code = RDW) RED CELL DISTRIBUTION 62.2 fL 37.0-51.0 H WIDTH SD (test code = RDW-SD) PLATELET COUNT (test code 194 K/mm3 150-450 = PLT) MEAN PLATELET VOLUME 11.0 fL 6.7-11.0 N (test code = MPV) NEUTROPHIL % (test code = 62.9 % 39.0-69.0 N NT%) IMMATURE GRANULOCYTE % 0.6 % 0.0-5.0 N (test code = IG%) LYMPHOCYTE % (test code = 19.6 % 25.0-55.0 L LY%) MONOCYTE % (test code = 13.9 % 0.0-10.0 H MO%) EOSINOPHIL % (test code = 2.5 % 0.0-5.0 N EO%) BASOPHIL % (test code = 0.5 % 0.0-1.0 N BA%) NUCLEATED RBC % (test 0.0 % 0-0 N code = NRBC%) NEUTROPHIL # (test code = 5.07 K/mm3 1.8-7.7 N NT#) IMMATURE GRANULOCYTE # 0.05 x10 3/uL 0-0.03 H (test code = IG#) LYMPHOCYTE # (test code = 1.58 K/mm3 1.0-5.0 N LY#) MONOCYTE # (test code = 1.12 K/mm3 0-0.8 H MO#) EOSINOPHIL # (test code = 0.20 K/mm3 0.0-0.5 N EO#) BASOPHIL # (test code = 0.04 K/mm3 0.0-0.2 N BA#) NUCLEATED RBC # (test 0.00 K/mm3 0.0-0.1 N code = NRBC#) MANUAL DIFF REQUIRED NO, ONLY SCAN NEEDED (test code = MDIFF) DIFFERENTIAL [id number] 13:25:00 Test Item Value Reference Range Interpretation Comments STAIN ACCEPTABILITY (test code = STN ACCEPTABLE) MORPHOLOGY COMMENT (test code = MOC) PLATELET ESTIMATE (test code = PLTEST) PLATELET MORPHOLOGY (test code = PLTMORPH) CBC W/AUTO [id number] 13:25:00 Test Item Value Reference Range Interpretation Comments WHITE BLOOD CELL (test 8.1 K/mm3 4.5-12.5 N code = WBC) RED BLOOD CELL (test code 3.24 mill/mm3 3.7-5.2 L = RBC) HEMOGLOBIN (test code = 10.0 gram/dL 11.5-15.5 L HGB) HEMATOCRIT (test code = 34.0 % 36.0-46.0 L HCT) MEAN CELL VOLUME (test 104.9 fL 80-98 H code = MCV) MEAN CELL HGB (test code 30.9 picogram 27.0-33.0 N = MCH) MEAN CELL HGB 29.4 gram/dL 33.0-36.0 L CONCETRATION (test code = MCHC) RED CELL DISTRIBUTION 15.9 % 11.6-16.2 N WIDTH (test code = RDW) RED CELL DISTRIBUTION 62.2 fL 37.0-51.0 H WIDTH SD (test code = RDW-SD) PLATELET COUNT (test code 194 K/mm3 150-450 = PLT) MEAN PLATELET VOLUME 11.0 fL 6.7-11.0 N (test code = MPV) NEUTROPHIL % (test code = 62.9 % 39.0-69.0 N NT%) IMMATURE GRANULOCYTE % 0.6 % 0.0-5.0 N (test code = IG%) LYMPHOCYTE % (test code = 19.6 % 25.0-55.0 L LY%) MONOCYTE % (test code = 13.9 % 0.0-10.0 H MO%) EOSINOPHIL % (test code = 2.5 % 0.0-5.0 N EO%) BASOPHIL % (test code = 0.5 % 0.0-1.0 N BA%) NUCLEATED RBC % (test 0.0 % 0-0 N code = NRBC%) NEUTROPHIL # (test code = 5.07 K/mm3 1.8-7.7 N NT#) IMMATURE GRANULOCYTE # 0.05 x10 3/uL 0-0.03 H (test code = IG#) LYMPHOCYTE # (test code = 1.58 K/mm3 1.0-5.0 N LY#) MONOCYTE # (test code = 1.12 K/mm3 0-0.8 H MO#) EOSINOPHIL # (test code = 0.20 K/mm3 0.0-0.5 N EO#) BASOPHIL # (test code = 0.04 K/mm3 0.0-0.2 N BA#) NUCLEATED RBC # (test 0.00 K/mm3 0.0-0.1 N code = NRBC#) MANUAL DIFF REQUIRED NO, ONLY SCAN NEEDED (test code = MDIFF) DIFFERENTIAL [id number] 13:25:00 Test Item Value Reference Range Interpretation Comments STAIN ACCEPTABILITY (test code = STN ACCEPTABLE) CABOT RINGS (test code = CAB) MORPHOLOGY COMMENT (test code = MOC) PLATELET ESTIMATE (test code = PLTEST) PLATELET MORPHOLOGY (test code = PLTMORPH) [id number] 06:22:00 Test Item Value Reference Range Interpretation Comments GLUBED (test code = 72 mg/dL 74-106 L Performe d by certified GLUBED) pill machine operator at [facility] [id number] 22:02:00 Test Item Value Reference Range Interpretation Comments GLUBED (test code = 148 mg/dL 74-106 H Performe d by certified GLUBED) pill machine operator at [facility] [id number] 22:02:00 Test Item Value Reference Range Interpretation Comments GLUBED (test code = 112 mg/dL 74-106 H Performe d by certified GLUBED) pill machine operator at [facility] [id number] 22:02:00 Test Item Value Reference Range Interpretation Comments GLUBED (test code = 148 mg/dL 74-106 H Performe d by certified GLUBED) pill machine operator at [facility] INTERVERTEBRAL [id number] 17:33:00 RUN DATE: 10/29/18 [facility] PAGE 1 RUN TIME: 1734 Specimen Inquiry RUN USER: INTERFACE PATIENT: LILIANA PATHAK LOC: [facility] U #: [id number] AGE/SX: 73/F ROOM: 2078 RE10/27/18REG DR: Landon Krishnan MD : 45 BED: A DIS: STATUS: ADM IN TLOC: SPEC #: [id number] RECD: 10/28/18 STATUS: SOUT REQ #: [id number] PAPO: 10/28/18- SUBM DR: Landon Krishnan MD ENTERED: 10/28/18 SP TYPE: INT DISC OTHR DR: Bird Hernandez MD, Toby C DO Pakzaban, Peyman MDORDERED: VONDA COPIES TO: Bird Hernandez MD [address] [place] [address] Landon Krishnan MD [address] [place] [address] [email or web address] Jd Garay DO [address] [place], [place] [id number] Taco Uribe MD [address] [place] [address] PROCEDURES: VONDA (10/29/18-160) TISSUES: LUMBAR REGION - LAMIA AND LIGAMENT CLINICAL HISTORY COLLECTION DATE: 10/28/18 L4-5 SPINAL STENOSIS CONTINUED ON NEXT PAGE RUN DATE: 10/29/18 [facility] PAGE 2 RUN TIME: 1734 SpecimenInquiry RUN USER: INTERFACE SPEC#: [id number] PATIENT: LILIANA PATHAK #[id number] (Continued) FINAL DIAGNOSIS Vertebra, L4-5, lumbar lamina and ligament, laminectomy: FRAGMENTS OF DENSE CONNECTIVE TISSUE COMPATIBLE WITH LIGAMENT FRAGMENTS OF UNREMARKABLE TRABECULAR BONE AND CARTILAGENEGATIVE FOR MALIGNANCY RRB/ D 15173, 25752 MACROSCOPIC The specimen isreceived in formalin, labeled with the patient's name, and identified as "lumbar lamina and ligament". The specimen consists of multiple pale yellow and da silva fragments of fibrous tissue and bone measuring 3.5 X 2.7 X 0.8 cm in aggregate. Samples of the specimen are submitted for decalcification and follow up microscopic evaluation in a single cassette. GROSS PERFORMED AT [facility] [address] [place] [phone] MICROSCOPIC All of the stains, including any controls performed, stain appropriately. MICROSCOPIC PERFORMED AT [facility] [address] [place] [address] [phone] PERFORMING SITE Diagnosis performed at: [facility], [place] [address] [place] [address] Signed SIGNATURE ON FILE Cory Guzman MD 10/29/18 1733 END OF REPORT CBC W/AUTO [id number] 11:49:00 Test Item Value Reference Range Interpretation Comments WHITE BLOOD CELL (test 14.9 K/mm3 4.5-12.5 H code = WBC) RED BLOOD CELL (test code 3.86 mill/mm3 3.7-5.2 N = RBC) HEMOGLOBIN (test code = 11.9 gram/dL 11.5-15.5 N HGB) HEMATOCRIT (test code = 40.8 % 36.0-46.0 N HCT) MEAN CELL VOLUME (test 105.7 fL 80-98 H code = MCV) MEAN CELL HGB (test code 30.8 picogram 27.0-33.0 N = MCH) MEAN CELL HGB 29.2 gram/dL 33.0-36.0 L CONCETRATION (test code = MCHC) RED CELL DISTRIBUTION 16.0 % 11.6-16.2 N WIDTH (test code = RDW) RED CELL DISTRIBUTION 63.2 fL 37.0-51.0 H WIDTH SD (test code = RDW-SD) PLATELET COUNT (test code 300 K/mm3 150-450 N = PLT) MEAN PLATELET VOLUME 10.8 fL 6.7-11.0 N (test code = MPV) NEUTROPHIL % (test code = 75.1 % 39.0-69.0 H NT%) IMMATURE GRANULOCYTE % 0.5 % 0.0-5.0 N (test code = IG%) LYMPHOCYTE % (test code = 15.7 % 25.0-55.0 L LY%) MONOCYTE % (test code = 8.4 % 0.0-10.0 N MO%) EOSINOPHIL % (test code = 0.1 % 0.0-5.0 N EO%) BASOPHIL % (test code = 0.2 % 0.0-1.0 N BA%) NUCLEATED RBC % (test 0.0 % 0-0 N code = NRBC%) NEUTROPHIL # (test code = 11.23 K/mm3 1.8-7.7 H NT#) IMMATURE GRANULOCYTE # 0.07 x10 3/uL 0-0.03 H (test code = IG#) LYMPHOCYTE # (test code = 2.34 K/mm3 1.0-5.0 N LY#) MONOCYTE # (test code = 1.26 K/mm3 0-0.8 H MO#) EOSINOPHIL # (test code = 0.01 K/mm3 0.0-0.5 N EO#) BASOPHIL # (test code = 0.03 K/mm3 0.0-0.2 N BA#) NUCLEATED RBC # (test 0.00 K/mm3 0.0-0.1 N code = NRBC#) MANUAL DIFF REQUIRED NO, ONLY SCAN NEEDED (test code = MDIFF) DIFFERENTIAL [id number] 11:49:00 Test Item Value Reference Range Interpretation Comments STAIN ACCEPTABILITY (test STAIN ACCEPTABLE code = STN ACCEPTABLE) ANISOCYTOSIS (test code = 1+ ANISO) MACROCYTOSIS (test code = 1+ MACR) PLATELET ESTIMATE (test code ADEQUATE = PLTEST) PLATELET MORPHOLOGY (test NORMAL code = PLTMORPH) BASIC METABOLIC [id number] 11:19:00 Test Item Value Reference Range Interpretation Comments SODIUM (test code = 138 mmol/L 136-145 N NA) POTASSIUM (test code 4.3 mmol/L 3.5-5.1 N = K) CHLORIDE (test code = 103.0 mmol/L 98-107 N CL) CARBON DIOXIDE (test 29.0 mmol/L 21-32 N code = CO2) ANION GAP (test code 10.3 10-20 N = GAP) GLUCOSE (test code = 184 mg/dL 74-106 H GLU) BLOOD UREA NITROGEN 30 mg/dL 7-18 H (test code = BUN) GLOMERULAR FILTRATION 32 mL/min >=60 Estima toya GFR by RATE (test code = using Duc fied MDRD GFR) formula.Chronic kidney disease is defined as ei er kidney damageor GFR <60 mL/min/1.73 m2 for >3 months. CREATININE (test code 1.60 mg/dL 0.55-1.02 H Note change in = CREAT) reference range due to change in reagent. BUN/CREATININE RATIO 18.8 10-20 N (test code = BUN/CREA) CALCIUM (test code = 9.4 mg/dL 8.5-10.1 N CA) BASIC METABOLIC [id number] 11:14:00 Test Item Value Reference Range Interpretation Comments SODIUM (test code = NA) 138 mmol/L 136-145 N POTASSIUM (test code = K) 4.3 mmol/L 3.5-5.1 N CHLORIDE (test code = CL) 103.0 mmol/L 98-107 N CARBON DIOXIDE (test code = CO2) mmol/L 21-32 ANION GAP (test code = GAP) 10-20 GLUCOSE (test code = GLU) mg/dL 74-106 BLOOD UREA NITROGEN (test code = mg/dL 7-18 BUN) GLOMERULAR FILTRATION RATE (test mL/min >=60 code = GFR) CREATININE (test code = CREAT) mg/dL 0.55-1.02 BUN/CREATININE RATIO (test code 10-20 = BUN/CREA) CALCIUM (test code = CA) mg/dL 8.5-10.1 CBC W/AUTO [id number] 11:01:00 Test Item Value Reference Range Interpretation Comments WHITE BLOOD CELL (test 14.9 K/mm3 4.5-12.5 H code = WBC) RED BLOOD CELL (test code 3.86 mill/mm3 3.7-5.2 N = RBC) HEMOGLOBIN (test code = 11.9 gram/dL 11.5-15.5 N HGB) HEMATOCRIT (test code = 40.8 % 36.0-46.0 N HCT) MEAN CELL VOLUME (test 105.7 fL 80-98 H code = MCV) MEAN CELL HGB (test code 30.8 picogram 27.0-33.0 N = MCH) MEAN CELL HGB 29.2 gram/dL 33.0-36.0 L CONCETRATION (test code = MCHC) RED CELL DISTRIBUTION 16.0 % 11.6-16.2 N WIDTH (test code = RDW) RED CELL DISTRIBUTION 63.2 fL 37.0-51.0 H WIDTH SD (test code = RDW-SD) PLATELET COUNT (test code 300 K/mm3 150-450 N = PLT) MEAN PLATELET VOLUME 10.8 fL 6.7-11.0 N (test code = MPV) NEUTROPHIL % (test code = 75.1 % 39.0-69.0 H NT%) IMMATURE GRANULOCYTE % 0.5 % 0.0-5.0 N (test code = IG%) LYMPHOCYTE % (test code = 15.7 % 25.0-55.0 L LY%) MONOCYTE % (test code = 8.4 % 0.0-10.0 N MO%) EOSINOPHIL % (test code = 0.1 % 0.0-5.0 N EO%) BASOPHIL % (test code = 0.2 % 0.0-1.0 N BA%) NUCLEATED RBC % (test 0.0 % 0-0 N code = NRBC%) NEUTROPHIL # (test code = 11.23 K/mm3 1.8-7.7 H NT#) IMMATURE GRANULOCYTE # 0.07 x10 3/uL 0-0.03 H (test code = IG#) LYMPHOCYTE # (test code = 2.34 K/mm3 1.0-5.0 N LY#) MONOCYTE # (test code = 1.26 K/mm3 0-0.8 H MO#) EOSINOPHIL # (test code = 0.01 K/mm3 0.0-0.5 N EO#) BASOPHIL # (test code = 0.03 K/mm3 0.0-0.2 N BA#) NUCLEATED RBC # (test 0.00 K/mm3 0.0-0.1 N code = NRBC#) MANUAL DIFF REQUIRED NO, ONLY SCAN NEEDED (test code = MDIFF) DIFFERENTIAL [id number] 11:01:00 Test Item Value Reference Range Interpretation Comments STAIN ACCEPTABILITY (test code = STN ACCEPTABLE) CABOT RINGS (test code = CAB) MORPHOLOGY COMMENT (test code = MOC) PLATELET ESTIMATE (test code = PLTEST) PLATELET MORPHOLOGY (test code = PLTMORPH) CBC W/AUTO [id number] 11:01:00 Test Item Value Reference Range Interpretation Comments WHITE BLOOD CELL (test 14.9 K/mm3 4.5-12.5 H code = WBC) RED BLOOD CELL (test code 3.86 mill/mm3 3.7-5.2 N = RBC) HEMOGLOBIN (test code = 11.9 gram/dL 11.5-15.5 N HGB) HEMATOCRIT (test code = 40.8 % 36.0-46.0 N HCT) MEAN CELL VOLUME (test 105.7 fL 80-98 H code = MCV) MEAN CELL HGB (test code 30.8 picogram 27.0-33.0 N = MCH) MEAN CELL HGB 29.2 gram/dL 33.0-36.0 L CONCETRATION (test code = MCHC) RED CELL DISTRIBUTION 16.0 % 11.6-16.2 N WIDTH (test code = RDW) RED CELL DISTRIBUTION 63.2 fL 37.0-51.0 H WIDTH SD (test code = RDW-SD) PLATELET COUNT (test code 300 K/mm3 150-450 N = PLT) MEAN PLATELET VOLUME 10.8 fL 6.7-11.0 N (test code = MPV) NEUTROPHIL % (test code = 75.1 % 39.0-69.0 H NT%) IMMATURE GRANULOCYTE % 0.5 % 0.0-5.0 N (test code = IG%) LYMPHOCYTE % (test code = 15.7 % 25.0-55.0 L LY%) MONOCYTE % (test code = 8.4 % 0.0-10.0 N MO%) EOSINOPHIL % (test code = 0.1 % 0.0-5.0 N EO%) BASOPHIL % (test code = 0.2 % 0.0-1.0 N BA%) NUCLEATED RBC % (test 0.0 % 0-0 N code = NRBC%) NEUTROPHIL # (test code = 11.23 K/mm3 1.8-7.7 H NT#) IMMATURE GRANULOCYTE # 0.07 x10 3/uL 0-0.03 H (test code = IG#) LYMPHOCYTE # (test code = 2.34 K/mm3 1.0-5.0 N LY#) MONOCYTE # (test code = 1.26 K/mm3 0-0.8 H MO#) EOSINOPHIL # (test code = 0.01 K/mm3 0.0-0.5 N EO#) BASOPHIL # (test code = 0.03 K/mm3 0.0-0.2 N BA#) NUCLEATED RBC # (test 0.00 K/mm3 0.0-0.1 N code = NRBC#) MANUAL DIFF REQUIRED NO, ONLY SCAN NEEDED (test code = MDIFF) DIFFERENTIAL [id number] 11:01:00 Test Item Value Reference Range Interpretation Comments STAIN ACCEPTABILITY (test code = STN ACCEPTABLE) MORPHOLOGY COMMENT (test code = MOC) PLATELET ESTIMATE (test code = PLTEST) PLATELET MORPHOLOGY (test code = PLTMORPH) CBC W/AUTO [id number] 11:00:00 Test Item Value Reference Range Interpretation Comments WHITE BLOOD CELL (test 14.9 K/mm3 4.5-12.5 H code = WBC) RED BLOOD CELL (test code 3.86 mill/mm3 3.7-5.2 N = RBC) HEMOGLOBIN (test code = 11.9 gram/dL 11.5-15.5 N HGB) HEMATOCRIT (test code = 40.8 % 36.0-46.0 N HCT) MEAN CELL VOLUME (test 105.7 fL 80-98 H code = MCV) MEAN CELL HGB (test code 30.8 picogram 27.0-33.0 N = MCH) MEAN CELL HGB 29.2 gram/dL 33.0-36.0 L CONCETRATION (test code = MCHC) RED CELL DISTRIBUTION 16.0 % 11.6-16.2 N WIDTH (test code = RDW) RED CELL DISTRIBUTION 63.2 fL 37.0-51.0 H WIDTH SD (test code = RDW-SD) PLATELET COUNT (test code 300 K/mm3 150-450 N = PLT) MEAN PLATELET VOLUME 10.8 fL 6.7-11.0 N (test code = MPV) NEUTROPHIL % (test code = 75.1 % 39.0-69.0 H NT%) IMMATURE GRANULOCYTE % 0.5 % 0.0-5.0 N (test code = IG%) LYMPHOCYTE % (test code = 15.7 % 25.0-55.0 L LY%) MONOCYTE % (test code = 8.4 % 0.0-10.0 N MO%) EOSINOPHIL % (test code = 0.1 % 0.0-5.0 N EO%) BASOPHIL % (test code = 0.2 % 0.0-1.0 N BA%) NUCLEATED RBC % (test 0.0 % 0-0 N code = NRBC%) NEUTROPHIL # (test code = 11.23 K/mm3 1.8-7.7 H NT#) IMMATURE GRANULOCYTE # 0.07 x10 3/uL 0-0.03 H (test code = IG#) LYMPHOCYTE # (test code = 2.34 K/mm3 1.0-5.0 N LY#) MONOCYTE # (test code = 1.26 K/mm3 0-0.8 H MO#) EOSINOPHIL # (test code = 0.01 K/mm3 0.0-0.5 N EO#) BASOPHIL # (test code = 0.03 K/mm3 0.0-0.2 N BA#) NUCLEATED RBC # (test 0.00 K/mm3 0.0-0.1 N code = NRBC#) MANUAL DIFF REQUIRED NO, ONLY SCAN NEEDED (test code = MDIFF) DIFFERENTIAL [id number] 11:00:00 Test Item Value Reference Range Interpretation Comments STAIN ACCEPTABILITY (test code = STN ACCEPTABLE) CABOT RINGS (test code = CAB) MORPHOLOGY COMMENT (test code = MOC) PLATELET ESTIMATE (test code = PLTEST) PLATELET MORPHOLOGY (test code = PLTMORPH) CBC W/AUTO [id number] 11:00:00 Test Item Value Reference Range Interpretation Comments WHITE BLOOD CELL (test 14.9 K/mm3 4.5-12.5 H code = WBC) RED BLOOD CELL (test code 3.86 mill/mm3 3.7-5.2 N = RBC) HEMOGLOBIN (test code = 11.9 gram/dL 11.5-15.5 N HGB) HEMATOCRIT (test code = 40.8 % 36.0-46.0 N HCT) MEAN CELL VOLUME (test 105.7 fL 80-98 H code = MCV) MEAN CELL HGB (test code 30.8 picogram 27.0-33.0 N = MCH) MEAN CELL HGB 29.2 gram/dL 33.0-36.0 L CONCETRATION (test code = MCHC) RED CELL DISTRIBUTION 16.0 % 11.6-16.2 N WIDTH (test code = RDW) RED CELL DISTRIBUTION 63.2 fL 37.0-51.0 H WIDTH SD (test code = RDW-SD) PLATELET COUNT (test code 300 K/mm3 150-450 N = PLT) MEAN PLATELET VOLUME 10.8 fL 6.7-11.0 N (test code = MPV) NEUTROPHIL % (test code = 75.1 % 39.0-69.0 H NT%) IMMATURE GRANULOCYTE % 0.5 % 0.0-5.0 N (test code = IG%) LYMPHOCYTE % (test code = 15.7 % 25.0-55.0 L LY%) MONOCYTE % (test code = 8.4 % 0.0-10.0 N MO%) EOSINOPHIL % (test code = 0.1 % 0.0-5.0 N EO%) BASOPHIL % (test code = 0.2 % 0.0-1.0 N BA%) NUCLEATED RBC % (test 0.0 % 0-0 N code = NRBC%) NEUTROPHIL # (test code = 11.23 K/mm3 1.8-7.7 H NT#) IMMATURE GRANULOCYTE # 0.07 x10 3/uL 0-0.03 H (test code = IG#) LYMPHOCYTE # (test code = 2.34 K/mm3 1.0-5.0 N LY#) MONOCYTE # (test code = 1.26 K/mm3 0-0.8 H MO#) EOSINOPHIL # (test code = 0.01 K/mm3 0.0-0.5 N EO#) BASOPHIL # (test code = 0.03 K/mm3 0.0-0.2 N BA#) NUCLEATED RBC # (test 0.00 K/mm3 0.0-0.1 N code = NRBC#) MANUAL DIFF REQUIRED NO, ONLY SCAN NEEDED (test code = MDIFF) DIFFERENTIAL [id number] 11:00:00 Test Item Value Reference Range Interpretation Comments STAIN ACCEPTABILITY (test code = STN ACCEPTABLE) CABOT RINGS (test code = CAB) MORPHOLOGY COMMENT (test code = MOC) PLATELET ESTIMATE (test code = PLTEST) PLATELET MORPHOLOGY (test code = PLTMORPH) [id number] 06:48:00 Test Item Value Reference Range Interpretation Comments GLUBED (test code = 106 mg/dL 74-106 N Performe d by certified GLUBED) pill machine operator at [facility] [id number] 21:24:00 Test Item Value Reference Range Interpretation Comments GLUBED (test code 184 mg/dL 74-106 H Performed by certified = GLUBED) [facility]~ [id number] 19:42:00 Test Item Value Reference Range Interpretation Comments GLUBED (test code = 170 mg/dL 74-106 H Performe d by certified GLUBED) pill machine operator at [facility] [id number] 19:42:00 Test Item Value Reference Range Interpretation Comments GLUBED (test code = 132 mg/dL 74-106 H Performe d by certified GLUBED) pill machine operator at [facility] - XR SPINE 1 V SPEC [id number] 14:53:00 FAX: Landon Krishnan MD [phone] [place]: B St: ADM FAX: Jd Hein CD [phone] FAX: Taco Oviedo MD [phone] Name: LILIANA PATHAK [facility] : 1945 Age/S: 73/F [address] [facility] Unit #: [id number] Loc: V.[address] [place] [address] Phys: Taco Urieb MD Acct: [id number] Dis Date: Status: ADM IN PHONE #: [phone] Exam Date: 10/28/2018 1155 FAX #: [phone] Reason: LAMINECTOMY EXAMS: CPT CODE: [id number] XR SPINE 1 V SPEC LEVEL [id number] REASON FOR EXAM: LAMINECTOMY EXAM ORDER DATE: 10/28/2018 11:00 AM Ordering MFranklin: Taco Uribe MD PROCEDURE: - XR SPINE 1 V SPEC LEVEL, - XR SPINE 1 V SPEC LEVEL FINDINGS: 2 crosstable lateral views of the lumbar spine were provided for interpretation. There is instrumentation localizing the L5-S1 disc. at 5982 Reported and signed by: Zurdo Jimenez M.D. CC: Landon Krishnan MD; Jd Garay DO; Taco Uribe MD Technologist: RT TERESA(R) Trnscrd Date/Time/By: 10/28/2018 (8619) : By: JocelyneL Orig Print D/T: S: 10/28/2018 (1587) PAGE 1 Signed Report- XR SPINE 1 V SPEC LEVEL 2018-10-28 14:53:00 FAX: Landon Krishnan MD [phone] [place]: St: ADM FAX: Jd Hein [facility] [phone] FAX: Taco Oviedo MD [phone] Name: LILIANA PATHAK [facility] : 1945 Age/S: 73/F [address] [facility] Unit #: [id number] Loc: V.2078 [place] [address] Phys: Taco Uribe MD Acct: [id number] Dis Date: Status: ADM IN PHONE #: [phone] Exam Date: 10/28/2018 1155 FAX #: [phone] Reason: LAMINECTOMY EXAMS: CPT CODE: [id number] XR SPINE 1 V SPEC LEVEL [id number] REASON FOR EXAM: LAMINECTOMY EXAM ORDER DATE: 10/28/2018 11:00 AM Ordering M.D.: Taco Uribe MD PROCEDURE: - XR SPINE 1 V SPEC LEVEL, - XR SPINE 1 V SPEC LEVEL FINDINGS: 2 crosstable lateral views of the lumbar spine were provided for interpretation. There is instrumentation localizing the L5-S1 disc. at 4502 Reported and signed by: Zurdo Jimenez M.D. CC: Landon Krishnan MD; Jd Garay DO; Taco Uribe MD Technologist: RT TERESA(R) Trnscrd Date/Time/By: 10/28/2018 (6508) : By: JocelyneL Orig Print D/T: S: 10/28/2018 (5147) PAGE 1 Signed ReportTHROMBOPLASTIN TIME [id number] 10:38:00 Test Item Value Reference Range Interpretation Comments THROMBOPLASTIN TIME PARTIAL 39.0 seconds 25.0-36.5 H (test code = PTT) IS PATIENT ON ANTICOAGULANTS? NURINALYSIS [id number] 09:54:00 Test Item Value Reference Range Interpretation Comments UA COLOR (test code = COLU) STRAW YELLOW UA APPEARANCE (test code = CLEAR CLEAR APPU) UA GLUCOSE DIPSTICK (test NEGATIVE mg/dL NEGATIVE code = DGLUU) UA BILIRUBIN DIPSTICK (test NEGATIVE mg/dL NEGATIVE code = BILU) UA KETONE DIPSTICK (test code NEGATIVE mg/dL NEGATIVE = KETU) UA SPECIFIC GRAVITY (test 1.009 1.001-1.035 code = SGU) UA BLOOD DIPSTICK (test code Negative mg/dL NEGATIVE = GARDENIA) UA PH DIPSTICK (test code = 6.0 5.0-8.0 ERENDIRA) UA PROTEIN DIPSTICK (test NEGATIVE mg/dL NEGATIVE code = PROU) UA UROBILINIOGEN DIPSTICK NEGATIVE mg/dL NEGATIVE (test code = URO) UA NITRITE DIPSTICK (test NEGATIVE NEGATIVE code = AMOS) UA LEUKOCYTE ESTERASE W NEGATIVE [place]/uL NEGATIVE REFLEX (test code = LEUUR) UA WBC (test code = WBCU) 0-5 per HPF 0-5 UA RBC (test code = RBCU) 0-2 #/HPF 0-5 UA EPITHELIAL CELLS (test FEW per HPF FEW code = EPIU) UA BACTERIA (test code = TRACE per HPF NONE BACU) Urine Source? CatheterURINALYSIS [id number] 09:32:00 Test Item Value Reference Range Interpretation Comments UA COLOR (test code = COLU) STRAW YELLOW UA APPEARANCE (test code = CLEAR CLEAR APPU) UA GLUCOSE DIPSTICK (test NEGATIVE mg/dL NEGATIVE code = DGLUU) UA BILIRUBIN DIPSTICK (test NEGATIVE mg/dL NEGATIVE code = BILU) UA KETONE DIPSTICK (test code NEGATIVE mg/dL NEGATIVE = KETU) UA SPECIFIC GRAVITY (test 1.009 1.001-1.035 code = SGU) UA BLOOD DIPSTICK (test code Negative mg/dL NEGATIVE = GARDENIA) UA PH DIPSTICK (test code = 6.0 5.0-8.0 ERENDIRA) UA PROTEIN DIPSTICK (test NEGATIVE mg/dL NEGATIVE code = PROU) UA UROBILINIOGEN DIPSTICK NEGATIVE mg/dL NEGATIVE (test code = URO) UA NITRITE DIPSTICK (test NEGATIVE NEGATIVE code = AMOS) UA LEUKOCYTE ESTERASE W NEGATIVE [place]/uL NEGATIVE REFLEX (test code = LEUUR) UA WBC (test code = WBCU) 0-5 per HPF 0-5 UA RBC (test code = RBCU) 0-2 #/HPF 0-5 UA EPITHELIAL CELLS (test FEW per HPF FEW code = EPIU) UA BACTERIA (test code = per HPF NONE BACU) Urine Source? CatheterURINALYSIS [id number] 09:29:00 Test Item Value Reference Range Interpretation Comments UA COLOR (test code = COLU) STRAW YELLOW UA APPEARANCE (test code = CLEAR CLEAR APPU) UA GLUCOSE DIPSTICK (test NEGATIVE mg/dL NEGATIVE code = DGLUU) UA BILIRUBIN DIPSTICK (test NEGATIVE mg/dL NEGATIVE code = BILU) UA KETONE DIPSTICK (test code NEGATIVE mg/dL NEGATIVE = KETU) UA SPECIFIC GRAVITY (test 1.009 1.001-1.035 code = SGU) UA BLOOD DIPSTICK (test code Negative mg/dL NEGATIVE = GARDENIA) UA PH DIPSTICK (test code = 6.0 5.0-8.0 ERENDIRA) UA PROTEIN DIPSTICK (test NEGATIVE mg/dL NEGATIVE code = PROU) UA UROBILINIOGEN DIPSTICK NEGATIVE mg/dL NEGATIVE (test code = URO) UA NITRITE DIPSTICK (test NEGATIVE NEGATIVE code = AMOS) UA LEUKOCYTE ESTERASE W NEGATIVE [place]/uL NEGATIVE REFLEX (test code = LEUUR) UA WBC (test code = WBCU) per HPF 0-5 UA RBC (test code = RBCU) per HPF 0-5 UA EPITHELIAL CELLS (test per HPF Few code = EPIU) UA BACTERIA (test code = per HPF NONE BACU) Urine Source? [id number] 08:50:00 Test Item Value Reference Range Interpretation Comments GLUBED (test code = 97 mg/dL 74-106 N Performe d by certified GLUBED) pill machine operator at [facility] [id number] 21:00:00 Test Item Value Reference Range Interpretation Comments GLUBED (test code = 162 mg/dL 74-106 H Performe d by certified GLUBED) pill machine operator at [facility] PROTHROMBIN [id number] 20:10:00 Test Item Value Reference Range Interpretation Comments PROTHROMBIN TIME 11.7 seconds 9.0-14.0 N PATIENT (test code = PTP) INTERNATIONAL NORMAL 1.0 0.8-1.2 N The the rapeutic range RATIO (test code = for oral INR) anticoagulant t herapy formost indicat ions is an internati onal normalized rati o (INR)of between 2.0 and 3.0. The recommended therapeutic INR range for various cli nical situations is l isted below: Clinical Situat ion INR range Pulmonary embol ism treatment (2.0-3.0)Venou s thrombosis treatmentVenous thrombosis prophylaxis (hi gh risk surgery)Prevent ion of systemic emboli sm from: A cute myocardial infa rction Valvula r heart disease Atrial fibrilla tion Mechanical pros thetic heart valves (2.5-3.5) IS PATIENT ON ANTICOAGULANTS? NTHROMBOPLASTIN TIME [id number] 20:10:00 Test Item Value Reference Range Interpretation Comments THROMBOPLASTIN TIME PARTIAL 41.6 seconds 25.0-36.5 H (test code = PTT) IS PATIENT ON ANTICOAGULANTS? [id number] 16:30:00 Test Item Value Reference Range Interpretation Comments GLUBED (test code = 117 mg/dL 74-106 H Performe d by certified GLUBED) pill machine operator at [facility] [id number] 11:50:00 Test Item Value Reference Range Interpretation Comments GLUBED (test code = 86 mg/dL 74-106 N Performe d by certified GLUBED) pill machine operator at [facility] [id number] 10:29:00 Test Item Value Reference Range Interpretation Comments GLUBED (test code = 107 mg/dL 74-106 H Performe d by certified GLUBED) pill machine operator at [facility] [id number] 20:39:00 Test Item Value Reference Range Interpretation Comments GLUBED (test code = 153 mg/dL 74-106 H Performe d by certified GLUBED) pill machine operator at [facility] - MRI L-SPINE W WO [id number] 17:48:00 FAX: Tre Carpio MD [phone] [place]: B St: ADM FAX: Shanda GarayJd [facility] [place] [phone] Name: LILIANA PATHAK [facility] : 1945 Age/S: 73/F [address] Unit #: [id number] Loc: [place] [address] Phys: Tre Carpio MD Acct: Malachi [id number] Dis Date: Status: ADM IN PHONE #: [phone] Exam Date: 10/26/2018 1730 FAX #: [phone] Reason: Back pain, urinary incont EXAMS: CPT CODE: [id number] MRI L-SPINE W [place] CON [id number] REASON FOR EXAM: Back pain, urinary incont Exam Order Date: 10/26/2018 4:42 PM Attending MFranklin: Tre Carpio MD Comparison: Procedure: - MRI L-SPINE W WO CON FINDINGS: Sagittal and axial images of the lumbar spine were obtained in in T1, T2, and proton density with fat saturation. IV gadolinium was given. The sagittalimages show within normal alignment of the lumbar spine. No evidence of diskitis or osteomyelitis. The axial images show no evidence of cord compression. The cord is unremarkable without evidence of intramedullary mass. No abnormal enhancement on the postcontrast exam IMPRESSION: L4-5: Moderate broad-based disc herniation with severe central canal stenosis and narrowing of bilateral neural foramen L5-S1: Grade 1 spondylolisthesis with anterior translation of L5-S1 and severe central canal stenosis with narrowing of bilateral neural foramen at 4502 Reported and signed by: Zurdo Jimenez M.D. CC: Tre Carpio MD; Jd Garay DO Technologist: [facility] Date/Time/By: 10/26/2018 (9855) : By: [email or web address] Orig Print D/T: S: 10/26/2018 (4094) PAGE 1 Signed ReportLIPID PROFILE (CORONARY RISK)2018-10-26 12:10:00 Test Item Value Reference Range Interpretation Comments TRIGLYCERIDES (test 155 mg/dL 20-150 H code = TRIG) CHOLESTEROL (test code 202 mg/dL 0-200 H = CHOL) CHOLESTEROL/HDL RATIO 4.0 RATIO 0-4.9 N RISK A SSOCIATED WITH (test code = CHOLHDL) CHOL/H DL RATIOS: Risk M guero Female1/[address] A[address] RAGE 3.43 3.27AVERAGE 4.97 4.4 42X AVERAGE 9[address] RAGE 23.39 11.04 REFERENCE VALUE IS RELATED TO RISK LEVELS ASRECOMMENDED B Y THE JEZ. HEART, HEAVEN G, AND BLOOD INST. HDL CHOLESTEROL (test 49 mg/dL 40-60 N code = HDL) LIPOPROTEIN LDL (test 140 mg/dL 100-129 H RN PER [facility], CONTACT code = LDL) PHYSICIAN IMMED IATELY IF THIS IS A ST [place], AMI OR CAROTID STENOSIS PATIEN T WHEN THE LDL >100 ([address] OCCURENCE, THIS ADMISSION)===== ======= ======= ======= ===Reference In terval: mg/dL mmol/L-------- ------- ------- ------- Optimal <100 <2.6Near/above optimal 100-12 9 2.6-3.3Borderl ine High 130-159 3.4-4.1High 160 -189 4.1-4.9Very High >=190 >=4.9========= This LDL result is a direct measurement.=== ====== THYROID STIMULATING [id number] 12:10:00 Test Item Value Reference Range Interpretation Comments THYROID STIMULATING 2.920 uIU/mL 0.36-3.74 N TSH REFE RENCE HORMONE (test code = RANGES: EUTHYROID: TSH) 0.35 - 4.3 mIU/mL HYPO : > 5.5 mIU/mL HYPER : < 0.35 mIU/mL [id number] 12:10:00 Test Item Value Reference Range Interpretation Comments GLYCOSYLATED HEMOGLOBIN (HA1C) 5.8 % HbA1 4.8-6.0 N (test code = GLYHGB) ESTIMATED AVERAGE GLUCOSE (test 120 MG/DL code = EAG) [id number] 02:17:00 Test Item Value Reference Range Interpretation Comments TROPONIN-I (test code = TROPI) <0.015 ng/mL 0-0.045 N COMMENTS TO SPOT FACER: COLLECT 3 HOURS AFTER PREVIOUS [id number] 23:25:00 Test Item Value Reference Range Interpretation Comments TROPONIN-I (test code = TROPI) <0.015 ng/mL 0-0.045 N COMMENTS TO SPOT FACER: COLLECT 3 HOURS AFTER PREVIOUS SAMPLEBASIC METABOLIC [id number] 16:13:00 Test Item Value Reference Range Interpretation Comments SODIUM (test code = 141 mmol/L 136-145 N NA) POTASSIUM (test code 4.6 mmol/L 3.5-5.1 N = K) CHLORIDE (test code = 108.0 mmol/L 98-107 H CL) CARBON DIOXIDE (test 30.0 mmol/L 21-32 N code = CO2) ANION GAP (test code 7.6 10-20 L = GAP) GLUCOSE (test code = 97 mg/dL 74-106 N GLU) BLOOD UREA NITROGEN 27 mg/dL 7-18 H (test code = BUN) GLOMERULAR FILTRATION 49 mL/min >=60 Estima toya GFR by RATE (test code = using Duc fied MDRD GFR) formula.Chronic kidney disease is defined as ei er kidney damageor GFR <60 mL/min/1.73 m2 for >3 months. CREATININE (test code 1.10 mg/dL 0.55-1.02 H Note change in = CREAT) reference range due to change in reagent. BUN/CREATININE RATIO 24.5 10-20 H (test code = BUN/CREA) CALCIUM (test code = 8.8 mg/dL 8.5-10.1 N CA) HEPATIC FUNCTION [id number] 16:13:00 Test Item Value Reference Range Interpretation Comments TOTAL PROTEIN (test 7.5 gram/dL 6.4-8.2 N code = PROT) ALBUMIN (test code = 4.1 g/dL 3.4-5.0 N ALB) GLOBULIN (test code = 3.4 gram/dL 2.7-4.2 N GLOB) ALBUMIN/GLOBULIN RATIO 1.2 0.75-1.50 N (test code = A/G) BILIRUBIN TOTAL (test 0.50 mg/dL 0.0-1.0 N code = BILT) BILIRUBIN DIRECT (test 0.13 mg/dL 0.0-0.20 N code = BILD) SGOT/AST (test code = 17 IUnit/L 15-37 N AST) SGPT/ALT (test code = 19 IUnit/L 12-78 N ALT) ALKALINE PHOSPHATASE 76 IUnit/L 45-117 N Note change in TOTAL (test code = reference range due ALKP) to change in reagent. [id number] 16:13:00 Test Item Value Reference Range Interpretation Comments LIPASE (test code = LIP) 132 U/L 73.0-393.0 N [id number] 16:13:00 Test Item Value Reference Range Interpretation Comments TROPONIN-I (test code = TROPI) <0.015 ng/mL 0-0.045 N URINALYSIS [id number] 16:02:00 Test Item Value Reference Range Interpretation Comments UA COLOR (test code = COLU) LIGHT YELLOW YELLOW UA APPEARANCE (test code = SLIGHTLY CLOUDY CLEAR A APPU) UA GLUCOSE DIPSTICK (test NEGATIVE mg/dL NEGATIVE code = DGLUU) UA BILIRUBIN DIPSTICK (test NEGATIVE mg/dL NEGATIVE code = BILU) UA KETONE DIPSTICK (test code NEGATIVE mg/dL NEGATIVE = KETU) UA SPECIFIC GRAVITY (test 1.013 1.001-1.035 code = SGU) UA BLOOD DIPSTICK (test code Negative mg/dL NEGATIVE = GARDENIA) UA PH DIPSTICK (test code = 7.0 5.0-8.0 ERENDIRA) UA PROTEIN DIPSTICK (test NEGATIVE mg/dL NEGATIVE code = PROU) UA UROBILINIOGEN DIPSTICK NEGATIVE mg/dL NEGATIVE (test code = URO) UA NITRITE DIPSTICK (test POSITIVE NEGATIVE A code = AMOS) UA LEUKOCYTE ESTERASE W 2+ Keyonna/uL NEGATIVE A REFLEX (test code = LEUUR) UA WBC (test code = WBCU) >50 per HPF 0-5 A UA RBC (test code = RBCU) 6-10 #/HPF 0-5 A UA EPITHELIAL CELLS (test MOD per HPF FEW code = EPIU) UA BACTERIA (test code = MANY #/HPF NONE BACU) UA MUCUS (test code = MUCU) FEW #/LPF FEW UA YEAST (test code = YEASTU) FEW #/HPF NONE A Urine Source? Clean CatchBASIC METABOLIC [id number] 16:02:00 Test Item Value Reference Range Interpretation Comments SODIUM (test code = NA) 141 mmol/L 136-145 N POTASSIUM (test code = K) 4.6 mmol/L 3.5-5.1 N CHLORIDE (test code = CL) 108.0 mmol/L 98-107 H CARBON DIOXIDE (test code = CO2) mmol/L 21-32 ANION GAP (test code = GAP) 10-20 GLUCOSE (test code = GLU) mg/dL 74-106 BLOOD UREA NITROGEN (test code = mg/dL 7-18 BUN) GLOMERULAR FILTRATION RATE (test mL/min >=60 code = GFR) CREATININE (test code = CREAT) mg/dL 0.55-1.02 BUN/CREATININE RATIO (test code 10-20 = BUN/CREA) CALCIUM (test code = CA) mg/dL 8.5-10.1 HEPATIC FUNCTION [id number] 16:02:00 Test Item Value Reference Range Interpretation Comments TOTAL PROTEIN (test code = PROT) gram/dL 6.4-8.2 ALBUMIN (test code = ALB) g/dL 3.4-5.0 GLOBULIN (test code = GLOB) gram/dL 2.7-4.2 ALBUMIN/GLOBULIN RATIO (test code = 0.75-1.50 A/G) BILIRUBIN TOTAL (test code = BILT) mg/dL 0.0-1.0 BILIRUBIN DIRECT (test code = BILD) mg/dL 0.0-0.20 SGOT/AST (test code = AST) IUnit/L 15-37 SGPT/ALT (test code = ALT) IUnit/L 12-78 ALKALINE PHOSPHATASE TOTAL (test IUnit/L 45-117 code = ALKP) [id number] 16:02:00 Test Item Value Reference Range Interpretation Comments LIPASE (test code = LIP) U/L 73.0-393.0 [id number] 16:02:00 Test Item Value Reference Range Interpretation Comments TROPONIN-I (test code = TROPI) ng/mL 0-0.045 URINALYSIS [id number] 16:01:00 Test Item Value Reference Range Interpretation Comments UA COLOR (test code = COLU) LIGHT YELLOW YELLOW UA APPEARANCE (test code = SLIGHTLY CLOUDY CLEAR A APPU) UA GLUCOSE DIPSTICK (test NEGATIVE mg/dL NEGATIVE code = DGLUU) UA BILIRUBIN DIPSTICK (test NEGATIVE mg/dL NEGATIVE code = BILU) UA KETONE DIPSTICK (test code NEGATIVE mg/dL NEGATIVE = KETU) UA SPECIFIC GRAVITY (test 1.013 1.001-1.035 code = SGU) UA BLOOD DIPSTICK (test code Negative mg/dL NEGATIVE = GARDENIA) UA PH DIPSTICK (test code = 7.0 5.0-8.0 ERENDIRA) UA PROTEIN DIPSTICK (test NEGATIVE mg/dL NEGATIVE code = PROU) UA UROBILINIOGEN DIPSTICK NEGATIVE mg/dL NEGATIVE (test code = URO) UA NITRITE DIPSTICK (test POSITIVE NEGATIVE A code = AMOS) UA LEUKOCYTE ESTERASE W 2+ Keyonna/uL NEGATIVE A REFLEX (test code = LEUUR) UA WBC (test code = WBCU) per HPF 0-5 UA RBC (test code = RBCU) per HPF 0-5 UA EPITHELIAL CELLS (test per HPF Few code = EPIU) UA BACTERIA (test code = per HPF NONE BACU) Urine Source? Clean CatchCBC W/O [id number] 15:46:00 Test Item Value Reference Range Interpretation Comments WHITE BLOOD CELL (test code = 7.4 K/mm3 4.5-12.5 N WBC) RED BLOOD CELL (test code = 3.84 mill/mm3 3.7-5.2 N RBC) HEMOGLOBIN (test code = HGB) 12.2 gram/dL 11.5-15.5 N HEMATOCRIT (test code = HCT) 40.1 % 36.0-46.0 N MEAN CELL VOLUME (test code = 104.4 fL 80-98 H MCV) MEAN CELL HGB (test code = MCH) 31.8 picogram 27.0-33.0 N MEAN CELL HGB CONCETRATION 30.4 gram/dL 33.0-36.0 L (test code = MCHC) RED CELL DISTRIBUTION WIDTH 16.5 % 11.6-16.2 H (test code = RDW) PLATELET COUNT (test code = 214 K/mm3 150-450 N PLT) MEAN PLATELET VOLUME (test code 10.1 fL 6.7-11.0 N = MPV) CBC W/O [id number] 15:45:00 Test Item Value Reference Range Interpretation Comments WHITE BLOOD CELL (test code = K/mm3 4.5-12.5 WBC) RED BLOOD CELL (test code = RBC) mill/mm3 3.7-5.2 HEMOGLOBIN (test code = HGB) 12.2 gram/dL 11.5-15.5 N HEMATOCRIT (test code = HCT) 40.1 % 36.0-46.0 N MEAN CELL VOLUME (test code = fL 80-98 MCV) MEAN CELL HGB (test code = MCH) picogram 27.0-33.0 MEAN CELL HGB CONCETRATION (test gram/dL 33.0-36.0 code = MCHC) RED CELL DISTRIBUTION WIDTH % 11.6-16.2 (test code = RDW) PLATELET COUNT (test code = PLT) K/mm3 150-450 MEAN PLATELET VOLUME (test code fL 6.7-11.0 = MPV) CHEMISTRY 8 [id number] 15:30:00 Test Item Value Reference Range Interpretation Comments ISTAT-SODIUM (test code = NAP) mmol/L 135-148 ISTAT-POTASSIUM (test code = KP) mmol/L 3.5-5.5 ISTAT-CHLORIDE (test code = CLP) mmol/L 101-109 ISTAT CARBON DIOXIDE (test code = mmol/L 21-32 N ISTAT-CO2) ISTAT CALCIUM IONIZED (test code = mg/dL 1.12-1.32 ISTAT-SIM) ISTAT-ANION GAP (test code = GAPP) MEQ/L 10-20 ISTAT-GLUCOSE (test code = GLUP) mg/dL 74-106 N ISTAT-BUN (test code = BUNP) mg/dL 3-21 H BEDSIDE CREATININE (test code = mg/dL 0.7-1.3 N CREATBED) GLOMERULAR FILTRATION RATE POC (test 49 >60 LL code = GFRBED) CHEMISTRY 8 [id number] 15:30:00 Test Item Value Reference Range Interpretation Comments ISTAT-SODIUM (test code = NAP) 141 mmol/L 135-148 N ISTAT-POTASSIUM (test code = KP) 4.7 mmol/L 3.5-5.5 N ISTAT-CHLORIDE (test code = CLP) 105 mmol/L 101-109 N ISTAT CARBON DIOXIDE (test code = 29.0 mmol/L 21-32 N ISTAT-CO2) ISTAT CALCIUM IONIZED (test code 1.25 mg/dL 1.12-1.32 N = ISTAT-SIM) ISTAT-ANION GAP (test code = 13.0 MEQ/L 10-20 N GAPP) ISTAT-GLUCOSE (test code = GLUP) 101 mg/dL 74-106 N ISTAT-BUN (test code = BUNP) 29 mg/dL 3-21 H BEDSIDE CREATININE (test code = 1.1 mg/dL 0.7-1.3 N CREATBED) GLOMERULAR FILTRATION RATE POC 49 >60 LL (test code = GFRBED) - XR L-SPINE 2/3 [id number] 17:44:00 Name: LILIANA PATHAK : 1945 Age/S:73 /F [address] [facility] Unit#:[id number] Loc: [place] [address] Phys: Jd Garay DO Dis Date: PHONE #: [phone] Status: REG CLI FAX #: [phone] Exam Date: 10/13/2018 Reason: LOW BACK PAIN EXAMS: CPT CODE:[id number] XR L-SPINE 2/3 VIEWS 19641 REASON FOR EXAM: LOW BACK PAIN EXAM ORDER DATE: 10/13/2018 4:37 PM Ordering MFranklin: Jd C Tanisha, DO PROCEDURE: - XR L-SPINE 2/3 VIEWS FINDINGS: 3 views of the lumbar spine were obtained. There is normal alignment of the lumbar spine. The vertebral bodies are unremarkable in size and shape. No evidence of fracture. IMPRESSION: Severe narrowing of the L5-S1 disc space with sclerotic changes of the lower lumbar spine (L4- S1). No acute findings at 1744 Reported and signed by: Zurdo Jimenez M.D. CC: Jd Garay DO Technologist: David Marroquin Data: 10/13/2018 (1936) t.DELORIS.VTL Orig Print D/T: S: 10/13/2018 (6444) PAGE 1 Signed [id number] 07:53:00 Test Item Value Reference Range Interpretation Comments GLUBED (test code = 100 mg/dL 74-106 N Performe d by certified GLUBED) pill machine operator at [facility] [id number] 07:52:00 Test Item Value Reference Range Interpretation Comments GLUBED (test code = 96 mg/dL 74-106 N Performe d by certified GLUBED) pill machine operator at [facility] [id number] 07:52:00 Test Item Value Reference Range Interpretation Comments GLUBED (test code = 96 mg/dL 74-106 N Performe d by certified GLUBED) pill machine operator at [facility] [id number] 07:52:00 Test Item Value Reference Range Interpretation Comments GLUBED (test code = 94 mg/dL 74-106 N Performe d by certified GLUBED) pill machine operator at [facility] PROTEIN ELECTROPHORESIS [id number] 13:13:00 Test Item Value Reference Range Interpretation Comments TOTAL PROTEIN (test 5.7 g/dL 6.0-8.5 A code = PROTE) ALBUMIN (test code = 3.0 g/dL 2.9-4.4 ALBE) CRGHA-6-XKOZNCUW 0.2 g/dL 0.0-0.4 (test code = A1G) NDABV-5-OATDIRKU 0.7 g/dL 0.4-1.0 (test code = A2G) BETA GLOBULIN (test 0.9 g/dL 0.7-1.3 code = BG) GAMMA GLOBULIN (test 0.9 g/dL 0.4-1.8 code = GG) M-SPIKE,SERUM (test Not Observed Not Observed code = MSPIKES) g/dL GLOBULIN ELECT (test 2.7 g/dL 2.2-3.9 code = GLOBE) INTERPRETATION (test () The SPE pattern code = ELEINT) reflects hypoalbuminemia . Evidence ofmonoclonal protein is not apparent.Perfor med At: [facility] [address] [id number] kisha Salazar MD Ph:[phone] rfo rmed At: DA [facility] [address] [place], [place] [id number] h CN MD Ph:[phone] LACTIC DEHYDROGENASE(LDH)2018-08-17 13:13:00 Test Item Value Reference Range Interpretation Comments LACTIC DEHYDROGENASE(LDH) (test 139 IUnit/L 84-246 N code = LDH) KAPPA LAMBDA [id number] 13:13:00 Test Item Value Reference Range Interpretation Comments KAPPA CHAINS (FLOW) 37.0 mg/L 3.3-19.4 A (test code = KAPPA) LAMBDA CHAINS (FLOW) 21.5 mg/L 5.7-26.3 (test code = LAMBDA) KAPPA/LAMBDA RATIO 1.72 0.26-1.65 A Performed At: DA (test code = SHERYL/ANNE) [id number] [address] [place], [place] [id number] h CN MD Ph:[phone] METHYLMALONIC [id number] 13:13:00 Test Item Value Reference Range Interpretation Comments METHYLMALONIC ACID (test code = 179 nmol/L 0-378 METHM) [id number] 13:13:00 Test Item Value Reference Range Interpretation Comments HOMOCYSTEINE (test code 16.3 umol/L 0.0-15.0 H Perf ormed At: HD = HOMOCY) [facility] [address] [id number] Kyle L MD Ph:[phone] [id number] 13:13:00 Test Item Value Reference Range Interpretation Comments HWBT-2-BPMXISIQH TEST NOT PERFORMED <2400 NO UR INE RECD IN ULIN URINE (test mg/L LAB W/THIS ORDER - code = MICB2) REORDERED-SEE 0124;C658 STOMACH,[id number] 14:08:00 RUN DATE: 08/12/18 [facility] PAGE 1 RUN TIME: 1408 Specimen Inquiry RUN USER: INTERFACE PATIENT: LILIANA PATHAK LOC: TILA U #: [id number] AGE/SX: 73/F ROOM: 2059 RE08/05/18ARIANA DR: Nohelia Mcnally MD : 45 BED: A DIS: STATUS: ADM IN TLOC: SPEC #: [id number] RECD: 08/11/18 STATUS: SOUT REQ #: [id number] PAPO: 08/11/181236 SUBM DR: Chhaya Melgar MD ENTERED: 08/11/18 SP TYPE: BX STOMACH OTHR DR: Ralph Pizano MD, Mohamed O MD Kirkwood, Toby C DO Merszei, Justin David MD Rasheed, Amir A MDORDERED: VONDA [place]: [place] [address] [place] [address] Ralph Pizano MD [address], [address] [place] [address] Roxana Carlson MD [address] [place] [address] Jd Garay DO [address] [place] [id number] [place] [address] [facility] [address] [place], [place] [id number] [place] [address] [facility] [address] [place] [address] PROCEDURES: VONDA (08/12/18-1133) TISSUES: 1. GASTRIC CORPUS 2. ILEUM, NOS - TERMINAL CONTINUED ON NEXT PAGE RUN DATE: 08/12/18 [facility] PAGE 2RUN TIME: 1408 Specimen Inquiry RUN USER: INTERFACE SPEC #: [id number] PATIENT: LILIANA PATHAK #[id number] (Continued) CLINICAL HISTORY COLLECTION DATE: 08/11/18 ANEMIA FINAL DIAGNOSIS Stomach, biopsy: CHRONIC GASTRITIS, MILD TO MODERATE NO DIAGNOSTIC HELICOBACTER IDENTIFIED Terminal ileum, biopsy: PSEUDOMELANOSOS ILEI (Please SeeMicroscopic Description) NO GRANULOMA, ACUTE INFLAMMATION, MICROORGANISMS, DYSPLASIA OR MALIGNANCY IDENTIFIED FA/ D [phone] (2), [phone], [address] MACROSCOPIC The first specimen is received in formalin, labeled with the patient's name, identified as "gastric bx", and consists of three portions of da silva-pink soft biopsy tissue measuring 0.2, 0.5 and 0.6 cm, submitted as (1) for H E and Giemsa stains. The second specimen is received in formalin, labeled with the patient's name, identified as "terminal ileum bx", and consists of da silva biopsy tissue measuring 0.4 cm, submitted as (2). GROSS PERFORMED AT [facility] [address] [facility], [place], [place] [address] (p)[phone] MICROSCOPIC Sections of gastric biopsy shows mild to moderate chronic inflammatory infiltrates and mild focal foveolar hyperplasia. There is a minute detached group of cells with mild atypia consistent with technical floater. 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 It is a rare condition and canbe associated with terminal superintendent iron therapy. No microorganisms, ulceration, granuloma, acute inflammation, dysplasia or malignancy is identified. MICROSCOPIC PERFORMED AT [facility] All of the stains, including any controls performed, stain appropriately. [facility] [address] [place] [address], [place] [address] (P)[phone] PERFORMING SITE Diagnosis performed at: [facility], [place] [address] [place], [place] [address] Signed SIGNATURE ON FILE Grace Smith 08/12/18 1408 END OF REPORT [id number] 11:42:00 Test Item Value Reference Range Interpretation Comments GLUBED (test code = 103 mg/dL 74-106 N Performe d by certified GLUBED) pill machine operator at [facility] BASIC METABOLIC [id number] 06:19:00 Test Item Value Reference Range Interpretation Comments SODIUM (test code = 142 mmol/L 136-145 N NA) POTASSIUM (test code 4.2 mmol/L 3.5-5.1 N = K) CHLORIDE (test code = 112.0 mmol/L 98-107 H CL) CARBON DIOXIDE (test 23.0 mmol/L 21-32 N code = CO2) ANION GAP (test code 11.2 10-20 N = GAP) GLUCOSE (test code = 79 mg/dL 74-106 N GLU) BLOOD UREA NITROGEN 12 mg/dL 7-18 N (test code = BUN) GLOMERULAR FILTRATION 54 mL/min >=60 Estima toya GFR by RATE (test code = using Duc fied MDRD GFR) formula.Chronic kidney disease is defined as [facility] er kidney damageor GFR <60 mL/min/1.73 m2 for >3 months. CREATININE (test code 1.00 mg/dL 0.55-1.02 N Note change in = CREAT) reference range due to change in reagent. BUN/CREATININE RATIO 12.5 10-20 N (test code = BUN/CREA) CALCIUM (test code = 8.7 mg/dL 8.5-10.1 N CA) BASIC METABOLIC [id number] 06:07:00 Test Item Value Reference Range Interpretation Comments SODIUM (test code = NA) 142 mmol/L 136-145 N POTASSIUM (test code = K) 4.2 mmol/L 3.5-5.1 N CHLORIDE (test code = CL) 112.0 mmol/L 98-107 H CARBON DIOXIDE (test code = CO2) mmol/L 21-32 ANION GAP (test code = GAP) 10-20 GLUCOSE (test code = GLU) mg/dL 74-106 BLOOD UREA NITROGEN (test code = mg/dL 7-18 BUN) GLOMERULAR FILTRATION RATE (test mL/min >=60 code = GFR) CREATININE (test code = CREAT) mg/dL 0.55-1.02 BUN/CREATININE RATIO (test code 10-20 = BUN/CREA) CALCIUM (test code = CA) mg/dL 8.5-10.1 CBC W/AUTO [id number] 05:57:00 Test Item Value Reference Range Interpretation Comments WHITE BLOOD CELL (test code = 7.0 K/mm3 4.5-12.5 N WBC) RED BLOOD CELL (test code = 3.36 mill/mm3 3.7-5.2 L RBC) HEMOGLOBIN (test code = HGB) 10.5 gram/dL 11.5-15.5 L HEMATOCRIT (test code = HCT) 33.7 % 36.0-46.0 L MEAN CELL VOLUME (test code = 100.3 fL 80-98 H MCV) MEAN CELL HGB (test code = MCH) 31.3 picogram 27.0-33.0 N MEAN CELL HGB CONCETRATION 31.2 gram/dL 33.0-36.0 L (test code = MCHC) RED CELL DISTRIBUTION WIDTH 15.9 % 11.6-16.2 N (test code = RDW) RED CELL DISTRIBUTION WIDTH SD 58.1 fL 37.0-51.0 H (test code = RDW-SD) PLATELET COUNT (test code = 142 K/mm3 150-450 L PLT) MEAN PLATELET VOLUME (test code 11.3 fL 6.7-11.0 H = MPV) NEUTROPHIL % (test code = NT%) 74.9 % 39.0-69.0 H IMMATURE GRANULOCYTE % (test 0.7 % 0.0-5.0 N code = IG%) LYMPHOCYTE % (test code = LY%) 11.9 % 25.0-55.0 L MONOCYTE % (test code = MO%) 9.8 % 0.0-10.0 N EOSINOPHIL % (test code = EO%) 2.4 % 0.0-5.0 N BASOPHIL % (test code = BA%) 0.3 % 0.0-1.0 N NUCLEATED RBC % (test code = 0.0 % 0-0 N NRBC%) NEUTROPHIL # (test code = NT#) 5.27 K/mm3 1.8-7.7 N IMMATURE GRANULOCYTE # (test 0.05 x10 3/uL 0-0.03 H code = IG#) LYMPHOCYTE # (test code = LY#) 0.84 K/mm3 1.0-5.0 L MONOCYTE # (test code = MO#) 0.69 K/mm3 0-0.8 N EOSINOPHIL # (test code = EO#) 0.17 K/mm3 0.0-0.5 N BASOPHIL # (test code = BA#) 0.02 K/mm3 0.0-0.2 N NUCLEATED RBC # (test code = 0.00 K/mm3 0.0-0.1 N NRBC#) [id number] 05:42:00 Test Item Value Reference Range Interpretation Comments GLUBED (test code = 68 mg/dL 74-106 L Performe d by certified GLUBED) pill machine operator at [facility] [id number] 20:48:00 Test Item Value Reference Range Interpretation Comments GLUBED (test code = 79 mg/dL 74-106 N Performe d by certified GLUBED) pill machine operator at [facility] [id number] 16:54:00 Test Item Value Reference Range Interpretation Comments GLUBED (test code = 74 mg/dL 74-106 N Performe d by certified GLUBED) pill machine operator at [facility] [id number] 13:35:00 Test Item Value Reference Range Interpretation Comments GLUBED (test code = 82 mg/dL 74-106 N Performe d by certified GLUBED) pill machine operator at [facility] PROTEIN ELECTROPHORESIS [id number] 08:18:00 Test Item Value Reference Range Interpretation Comments TOTAL PROTEIN (test 5.7 g/dL 6.0-8.5 A code = PROTE) ALBUMIN (test code = 3.0 g/dL 2.9-4.4 ALBE) FRRHY-4-DNDAYYDA 0.2 g/dL 0.0-0.4 (test code = A1G) KLMKT-2-VUZRGZLE 0.7 g/dL 0.4-1.0 (test code = A2G) BETA GLOBULIN (test 0.9 g/dL 0.7-1.3 code = BG) GAMMA GLOBULIN (test 0.9 g/dL 0.4-1.8 code = GG) M-SPIKE,SERUM (test Not Observed Not Observed code = MSPIKES) g/dL GLOBULIN ELECT (test 2.7 g/dL 2.2-3.9 code = GLOBE) INTERPRETATION (test () The SPE pattern code = ELEINT) reflects hypoalbuminemia . Evidence ofmonoclonal protein is not apparent.Perfor med At: [facility] [id number] [place], [place] [id number] kisha Salazar MD Ph:[phone] rfo rmed At: DA [facility] [place] [address] [address] [place], [place] [id number] h CN MD Ph:[phone] LACTIC DEHYDROGENASE(LDH)2018-08-11 08:18:00 Test Item Value Reference Range Interpretation Comments LACTIC DEHYDROGENASE(LDH) (test 139 IUnit/L 84-246 N code = LDH) KAPPA LAMBDA [id number] 08:18:00 Test Item Value Reference Range Interpretation Comments KAPPA CHAINS (FLOW) 37.0 mg/L 3.3-19.4 A (test code = KAPPA) LAMBDA CHAINS (FLOW) 21.5 mg/L 5.7-26.3 (test code = LAMBDA) KAPPA/LAMBDA RATIO 1.72 0.26-1.65 A Performed At: DA (test code = SHERYL/ANNE) [facility] [id number] [place], [place] [id number] h CN MD Ph:[phone] METHYLMALONIC [id number] 08:18:00 Test Item Value Reference Range Interpretation Comments METHYLMALONIC ACID (test code = nmol/L METHM) [id number] 08:18:00 Test Item Value Reference Range Interpretation Comments HOMOCYSTEINE (test code 16.3 umol/L 0.0-15.0 H Perf ormed At: HD = HOMOCY) [facility] [place] [address] [place], [place] [address] Kyle L MD Ph:[phone] [id number] 08:18:00 Test Item Value Reference Range Interpretation Comments CGER-6-WOWIVUHVR TEST NOT PERFORMED <2400 NO UR INE RECD IN ULIN URINE (test mg/L LAB W/THIS ORDER - code = MICB2) REORDERED-SEE 0124;C658 [id number] 06:25:00 Test Item Value Reference Range Interpretation Comments GLUBED (test code = 82 mg/dL 74-106 N Performe d by certified GLUBED) pill machine operator at [facility] LEUK/LYMPH MARKERS [id number] 06:24:00 Test Item Value Reference Interpretation Comments Range LEUK/LYMPHOMA CLINICAL () No monoclonal B cell PANEL (test code = populatio n is detected. LEULYM) kappa:lambda ra darnell 1.7There is no loss of, or aberrant expression of, the murray T cell antigens tosugg est a neoplastic T ce ll process.CD4:CD8 ratio 4.9No circulating vicky sts are detected.Rare g ranulocytes show left-shift ed maturation.[place] cytes show partial aberran t expression of CD56, a find ing that can beseen in assoc iation with both reactive/a ctivated processes as we ll asneoplastic processes.Ilana sis of the leukocyte popul ation shows: granulocytes 74 %, %, l ymphocytes 16%, blasts <0. 5%, B cells 2%, T cells 13% , NK cells 1%. COMMENT(S) (test () Peripheral blood code = COMM) VIABILITY (test () 98% code = VIABILI) FLOW CYTO () Ivy Callahan M.D. INTERPRETATION (test code = INTFLOW) GATING STRATEGY () 8 color anal ysis with (test code = CD45/SSC gating GATSTRAT) COMMENT(S) (test Flow Interp retation:No code = COM) diagnostic immu nophenotypic abnormality det ected, seecomment. Christopher w Comment:Recomme nd clinical correlation and follow up as appropriate. Ph enotype Chart:CD2 No rmal CD3 NormalCD4 No rmal CD5 NormalCD7 No rmal CD8 [id number] No rmal CD11b [id number] No rmal CD14 [id number] No rmal CD19 ErjvieSP31 No rmal CD33 [id number] No rmal CD38 QkfebrGU14 No rmal CD56 See XaniII99 Normal CD117 NormalHLA-DR No rmal KAPPA NormalLAMBDA No rmal CD64 Normal Comment: Each antibody in this assay w as utilized to assess forpoten tial abnormalities o f studied cell populations or tocharacterize identified abno rmalities.This test was develo ped and its performance characteristics determined by [facility]. It has not been cleared or appr ovedby the [place] Food and D rug Administration. The FDA has determined that such clearance or ap proval isnot necessary. This test is used for clinical pu rposes. Itshould not be regarded as investigational or for research. Test performed at: [facility] [address] [place] [address] BASIC METABOLIC [id number] 05:52:00 Test Item Value Reference Range Interpretation Comments SODIUM (test code = 142 mmol/L 136-145 N NA) POTASSIUM (test code 4.6 mmol/L 3.5-5.1 N = K) CHLORIDE (test code = 110.0 mmol/L 98-107 H CL) CARBON DIOXIDE (test 25.0 mmol/L 21-32 N code = CO2) ANION GAP (test code 11.6 10-20 N = GAP) GLUCOSE (test code = 122 mg/dL 74-106 H GLU) BLOOD UREA NITROGEN 15 mg/dL 7-18 N (test code = BUN) GLOMERULAR FILTRATION 49 mL/min >=60 Estima toya GFR by RATE (test code = using Duc fied MDRD GFR) formula.Chronic kidney disease is defined as eith er kidney damageor GFR <60 mL/min/1.73 m2 for >3 months. CREATININE (test code 1.10 mg/dL 0.55-1.02 H Note change in = CREAT) reference range due to change in reagent. BUN/CREATININE RATIO 13.5 10-20 N (test code = BUN/CREA) CALCIUM (test code = 8.8 mg/dL 8.5-10.1 N CA) BASIC METABOLIC [id number] 05:47:00 Test Item Value Reference Range Interpretation Comments SODIUM (test code = NA) 142 mmol/L 136-145 N POTASSIUM (test code = K) 4.6 mmol/L 3.5-5.1 N CHLORIDE (test code = CL) 110.0 mmol/L 98-107 H CARBON DIOXIDE (test code = CO2) mmol/L 21-32 ANION GAP (test code = GAP) 10-20 GLUCOSE (test code = GLU) mg/dL 74-106 BLOOD UREA NITROGEN (test code = mg/dL 7-18 BUN) GLOMERULAR FILTRATION RATE (test mL/min >=60 code = GFR) CREATININE (test code = CREAT) mg/dL 0.55-1.02 BUN/CREATININE RATIO (test code 10-20 = BUN/CREA) CALCIUM (test code = CA) mg/dL 8.5-10.1 CBC W/AUTO [id number] 05:30:00 Test Item Value Reference Range Interpretation Comments WHITE BLOOD CELL (test code = 6.4 K/mm3 4.5-12.5 N WBC) RED BLOOD CELL (test code = 3.50 mill/mm3 3.7-5.2 L RBC) HEMOGLOBIN (test code = HGB) 11.1 gram/dL 11.5-15.5 L HEMATOCRIT (test code = HCT) 36.0 % 36.0-46.0 N MEAN CELL VOLUME (test code = 102.9 fL 80-98 H MCV) MEAN CELL HGB (test code = MCH) 31.7 picogram 27.0-33.0 N MEAN CELL HGB CONCETRATION 30.8 gram/dL 33.0-36.0 L (test code = MCHC) RED CELL DISTRIBUTION WIDTH 16.0 % 11.6-16.2 N (test code = RDW) RED CELL DISTRIBUTION WIDTH SD 61.2 fL 37.0-51.0 H (test code = RDW-SD) PLATELET COUNT (test code = 152 K/mm3 150-450 N PLT) MEAN PLATELET VOLUME (test code 11.6 fL 6.7-11.0 H = MPV) NEUTROPHIL % (test code = NT%) 59.8 % 39.0-69.0 N IMMATURE GRANULOCYTE % (test 0.8 % 0.0-5.0 N code = IG%) LYMPHOCYTE % (test code = LY%) 20.3 % 25.0-55.0 L MONOCYTE % (test code = MO%) 14.3 % 0.0-10.0 H EOSINOPHIL % (test code = EO%) 4.3 % 0.0-5.0 N BASOPHIL % (test code = BA%) 0.5 % 0.0-1.0 N NUCLEATED RBC % (test code = 0.0 % 0-0 N NRBC%) NEUTROPHIL # (test code = NT#) 3.80 K/mm3 1.8-7.7 N IMMATURE GRANULOCYTE # (test 0.05 x10 3/uL 0-0.03 H code = IG#) LYMPHOCYTE # (test code = LY#) 1.29 K/mm3 1.0-5.0 N MONOCYTE # (test code = MO#) 0.91 K/mm3 0-0.8 H EOSINOPHIL # (test code = EO#) 0.27 K/mm3 0.0-0.5 N BASOPHIL # (test code = BA#) 0.03 K/mm3 0.0-0.2 N NUCLEATED RBC # (test code = 0.00 K/mm3 0.0-0.1 N NRBC#) [id number] 21:21:00 Test Item Value Reference Range Interpretation Comments GLUBED (test code = 65 mg/dL 74-106 L Performe d by certified GLUBED) pill machine operator at [facility] [id number] 18:49:00 Test Item Value Reference Range Interpretation Comments GLUBED (test code = 79 mg/dL 74-106 N Performe d by certified GLUBED) pill machine operator at [facility] LEUK/LYMPH MARKERS [id number] 14:13:00 Test Item Value Reference Range Interpretation Comments LEUK/LYMPHOMA PANEL CLINICAL () No monoc lonal B cell (test code = LEULYM) populat ion is detected. kappa:lambda ra darnell 1.7There is no loss of, or aberrant expression of, the murray T cell anti gens tosuggest a neoplastic T ce ll process.CD4:CD8 ratio 4.9No circulati ng blasts are detected.Rare granulocytes sh ow left-shifted maturation.[place] cytes show partial ab errant expression of C D56, a finding that ca n beseen in assoc iation with both reactive/activa toya processes as we ll asneoplastic processes.Ilana sis of the leukocyte population show s: granulocytes 74 %, bldxdjljo29%, lymphocytes 16% , blasts <0.5%, B cells 2%, T cells 13% , NK cells 1%. COMMENT(S) (test code = () Kate pheral blood COMM) VIABILITY (test code = () 98% VIABILI) FLOW CYTO () Ivy Callahan M.D. INTERPRETATION (test code = INTFLOW) GATING STRATEGY (test () 8 colo r analysis with code = GATSTRAT) CD45/SSC ga ting COMMENT(S) (test code = COM) PROTEIN ELECTROPHORESIS [id number] 10:13:00 Test Item Value Reference Range Interpretation Comments TOTAL PROTEIN (test code = PROTE) gram/dL 6.0-8.5 ALBUMIN (test code = ALBE) gram/dL 2.9-4.4 [id number] (test code = A1G) 0.0-0.4 [id number] (test code = A2G) gram/dL 0.4-1.0 BETA GLOBULIN (test code = BG) gram/dL 0.7-1.3 GAMMA GLOBULIN (test code = GG) gram/dL 0.4-1.8 M-SPIKE,SERUM (test code = MSPIKES) Not Observe GLOBULIN ELECT (test code = GLOBE) 2.2-3.9 LACTIC DEHYDROGENASE(LDH)[id number] 10:13:00 Test Item Value Reference Range Interpretation Comments LACTIC DEHYDROGENASE(LDH) (test 139 IUnit/L 84-246 N code = LDH) KAPPA LAMBDA [id number] 10:13:00 Test Item Value Reference Range Interpretation Comments KAPPA CHAINS (FLOW) 37.0 mg/L 3.3-19.4 A (test code = KAPPA) LAMBDA CHAINS (FLOW) 21.5 mg/L 5.7-26.3 (test code = LAMBDA) KAPPA/LAMBDA RATIO 1.72 0.26-1.65 A Performed At: DA (test code = SHERYL/ANNE) [facility] [id number] [facility] [address] [place], [place] [id number] rachel ARRIOLA MD Ph:[phone] METHYLMALONIC [id number] 10:13:00 Test Item Value Reference Range Interpretation Comments METHYLMALONIC ACID (test code = nmol/L METHM) [id number] 10:13:00 Test Item Value Reference Range Interpretation Comments HOMOCYSTEINE (test code 16.3 umol/L 0.0-15.0 H Perf ormed At: HD = HOMOCY) [facility] [address] [id number] Kyle L MD Ph:[phone] [id number] 10:13:00 Test Item Value Reference Range Interpretation Comments [id number] TEST NOT PERFORMED <2400 NO UR INE RECD IN ULIN URINE (test mg/L LAB W/THIS ORDER - code = MICB2) REORDERED-SEE 0124;C658 BASIC METABOLIC [id number] 06:22:00 Test Item Value Reference Range Interpretation Comments SODIUM (test code = 144 mmol/L 136-145 N NA) POTASSIUM (test code 4.6 mmol/L 3.5-5.1 N = K) CHLORIDE (test code = 114.0 mmol/L 98-107 H CL) CARBON DIOXIDE (test 24.0 mmol/L 21-32 N code = CO2) ANION GAP (test code 10.6 10-20 N = GAP) GLUCOSE (test code = 91 mg/dL 74-106 N GLU) BLOOD UREA NITROGEN 17 mg/dL 7-18 N (test code = BUN) GLOMERULAR FILTRATION 44 mL/min >=60 Estima toya GFR by RATE (test code = using Duc fied MDRD GFR) formula.Chronic kidney disease is defined as eith er kidney damageor GFR <60 mL/min/1.73 m2 for >3 months. CREATININE (test code 1.20 mg/dL 0.55-1.02 H Note change in = CREAT) reference range due to change in reagent. BUN/CREATININE RATIO 14.5 10-20 N (test code = BUN/CREA) CALCIUM (test code = 8.9 mg/dL 8.5-10.1 N CA) BASIC METABOLIC [id number] 06:13:00 Test Item Value Reference Range Interpretation Comments SODIUM (test code = NA) 144 mmol/L 136-145 N POTASSIUM (test code = K) 4.6 mmol/L 3.5-5.1 N CHLORIDE (test code = CL) 114.0 mmol/L 98-107 H CARBON DIOXIDE (test code = CO2) mmol/L 21-32 ANION GAP (test code = GAP) 10-20 GLUCOSE (test code = GLU) mg/dL 74-106 BLOOD UREA NITROGEN (test code = mg/dL 7-18 BUN) GLOMERULAR FILTRATION RATE (test mL/min >=60 code = GFR) CREATININE (test code = CREAT) mg/dL 0.55-1.02 BUN/CREATININE RATIO (test code 10-20 = BUN/CREA) CALCIUM (test code = CA) mg/dL 8.5-10.1 CBC W/AUTO [id number] 06:01:00 Test Item Value Reference Range Interpretation Comments WHITE BLOOD CELL (test code = 5.8 K/mm3 4.5-12.5 N WBC) RED BLOOD CELL (test code = 3.45 mill/mm3 3.7-5.2 L RBC) HEMOGLOBIN (test code = HGB) 10.7 gram/dL 11.5-15.5 L HEMATOCRIT (test code = HCT) 35.6 % 36.0-46.0 L MEAN CELL VOLUME (test code = 103.2 fL 80-98 H MCV) MEAN CELL HGB (test code = MCH) 31.0 picogram 27.0-33.0 N MEAN CELL HGB CONCETRATION 30.1 gram/dL 33.0-36.0 L (test code = MCHC) RED CELL DISTRIBUTION WIDTH 16.8 % 11.6-16.2 H (test code = RDW) RED CELL DISTRIBUTION WIDTH SD 63.7 fL 37.0-51.0 H (test code = RDW-SD) PLATELET COUNT (test code = 159 K/mm3 150-450 N PLT) MEAN PLATELET VOLUME (test code 11.5 fL 6.7-11.0 H = MPV) NEUTROPHIL % (test code = NT%) 54.6 % 39.0-69.0 N IMMATURE GRANULOCYTE % (test 0.7 % 0.0-5.0 N code = IG%) LYMPHOCYTE % (test code = LY%) 26.0 % 25.0-55.0 N MONOCYTE % (test code = MO%) 13.0 % 0.0-10.0 H EOSINOPHIL % (test code = EO%) 5.2 % 0.0-5.0 H BASOPHIL % (test code = BA%) 0.5 % 0.0-1.0 N NUCLEATED RBC % (test code = 0.0 % 0-0 N NRBC%) NEUTROPHIL # (test code = NT#) 3.16 K/mm3 1.8-7.7 N IMMATURE GRANULOCYTE # (test 0.04 x10 3/uL 0-0.03 H code = IG#) LYMPHOCYTE # (test code = LY#) 1.50 K/mm3 1.0-5.0 N MONOCYTE # (test code = MO#) 0.75 K/mm3 0-0.8 N EOSINOPHIL # (test code = EO#) 0.30 K/mm3 0.0-0.5 N BASOPHIL # (test code = BA#) 0.03 K/mm3 0.0-0.2 N NUCLEATED RBC # (test code = 0.00 K/mm3 0.0-0.1 N NRBC#) [id number] 05:42:00 Test Item Value Reference Range Interpretation Comments GLUBED (test code = 85 mg/dL 74-106 N Performe d by certified GLUBED) pill machine operator at [facility] [id number] 21:32:00 Test Item Value Reference Range Interpretation Comments GLUBED (test code = 112 mg/dL 74-106 H Performe d by certified GLUBED) pill machine operator at [facility] [id number] 16:32:00 Test Item Value Reference Range Interpretation Comments GLUBED (test code = 115 mg/dL 74-106 H Performe d by certified GLUBED) pill machine operator at [id number] 11:19:00 Test Item Value Reference Range Interpretation Comments GLUBED (test code = 161 mg/dL 74-106 H Performe d by certified GLUBED) pill machine operator at [facility] BASIC METABOLIC [id number] 05:42:00 Test Item Value Reference Range Interpretation Comments SODIUM (test code = 145 mmol/L 136-145 N NA) POTASSIUM (test code 4.6 mmol/L 3.5-5.1 N = K) CHLORIDE (test code = 116.0 mmol/L 98-107 H CL) CARBON DIOXIDE (test 23.0 mmol/L 21-32 N code = CO2) ANION GAP (test code 10.6 10-20 N = GAP) GLUCOSE (test code = 111 mg/dL 74-106 H GLU) BLOOD UREA NITROGEN 18 mg/dL 7-18 N (test code = BUN) GLOMERULAR FILTRATION 49 mL/min >=60 Estima toya GFR by RATE (test code = using Duc fied MDRD GFR) formula.Chronic kidney disease is defined as eith er kidney damageor GFR <60 mL/min/1.73 m2 for >3 months. CREATININE (test code 1.10 mg/dL 0.55-1.02 H Note change in = CREAT) reference range due to change in reagent. BUN/CREATININE RATIO 16.8 10-20 N (test code = BUN/CREA) CALCIUM (test code = 9.1 mg/dL 8.5-10.1 N CA) BASIC METABOLIC [id number] 05:39:00 Test Item Value Reference Range Interpretation Comments SODIUM (test code = NA) 145 mmol/L 136-145 N POTASSIUM (test code = K) 4.6 mmol/L 3.5-5.1 N CHLORIDE (test code = CL) 116.0 mmol/L 98-107 H CARBON DIOXIDE (test code = CO2) 23.0 mmol/L 21-32 N ANION GAP (test code = GAP) 10.6 10-20 N GLUCOSE (test code = GLU) 111 mg/dL 74-106 H BLOOD UREA NITROGEN (test code = 18 mg/dL 7-18 N BUN) GLOMERULAR FILTRATION RATE (test mL/min >=60 code = GFR) CREATININE (test code = CREAT) mg/dL 0.55-1.02 BUN/CREATININE RATIO (test code 10-20 = BUN/CREA) CALCIUM (test code = CA) 9.1 mg/dL 8.5-10.1 N CBC W/AUTO [id number] 05:12:00 Test Item Value Reference Range Interpretation Comments WHITE BLOOD CELL (test 5.6 K/mm3 4.5-12.5 N code = WBC) RED BLOOD CELL (test 3.20 mill/mm3 3.7-5.2 L code = RBC) HEMOGLOBIN (test code 9.9 gram/dL 11.5-15.5 L RESULT VERIFIED BY = HGB) REPEAT ANALYSIS HEMATOCRIT (test code 32.7 % 36.0-46.0 L = HCT) MEAN CELL VOLUME (test 102.2 fL 80-98 H code = MCV) MEAN CELL HGB (test 30.9 picogram 27.0-33.0 N code = MCH) MEAN CELL HGB 30.3 gram/dL 33.0-36.0 L CONCETRATION (test code = MCHC) RED CELL DISTRIBUTION 17.0 % 11.6-16.2 H WIDTH (test code = RDW) RED CELL DISTRIBUTION 63.7 fL 37.0-51.0 H WIDTH SD (test code = RDW-SD) PLATELET COUNT (test 158 K/mm3 150-450 N code = PLT) MEAN PLATELET VOLUME 11.6 fL 6.7-11.0 H (test code = MPV) NEUTROPHIL % (test 58.4 % 39.0-69.0 N code = NT%) IMMATURE GRANULOCYTE % 0.9 % 0.0-5.0 N (test code = IG%) LYMPHOCYTE % (test 25.8 % 25.0-55.0 N code = LY%) MONOCYTE % (test code 10.9 % 0.0-10.0 H = MO%) EOSINOPHIL % (test 3.6 % 0.0-5.0 N code = EO%) BASOPHIL % (test code 0.4 % 0.0-1.0 N = BA%) NUCLEATED RBC % (test 0.0 % 0-0 N code = NRBC%) NEUTROPHIL # (test 3.26 K/mm3 1.8-7.7 N code = NT#) IMMATURE GRANULOCYTE # 0.05 x10 3/uL 0-0.03 H (test code = IG#) LYMPHOCYTE # (test 1.44 K/mm3 1.0-5.0 N code = LY#) MONOCYTE # (test code 0.61 K/mm3 0-0.8 N = MO#) EOSINOPHIL # (test 0.20 K/mm3 0.0-0.5 N code = EO#) BASOPHIL # (test code 0.02 K/mm3 0.0-0.2 N = BA#) NUCLEATED RBC # (test 0.00 K/mm3 0.0-0.1 N code = NRBC#) MANUAL DIFF REQUIRED NO (test code = MDIFF) [id number] 21:07:00 Test Item Value Reference Range Interpretation Comments GLUBED (test code = 122 mg/dL 74-106 H Performe d by certified GLUBED) pill machine operator at [facility] [id number] 16:11:00 Test Item Value Reference Range Interpretation Comments GLUBED (test code = 181 mg/dL 74-106 H Performe d by certified GLUBED) pill machine operator at [facility] [id number] 11:40:00 Test Item Value Reference Range Interpretation Comments GLUBED (test code = 106 mg/dL 74-106 N Performe d by certified GLUBED) pill machine operator at [facility] CBC W/AUTO [id number] 06:16:00 Test Item Value Reference Range Interpretation Comments WHITE BLOOD CELL (test 5.2 K/mm3 4.5-12.5 N code = WBC) RED BLOOD CELL (test code 2.42 mill/mm3 3.7-5.2 L = RBC) HEMOGLOBIN (test code = 7.6 gram/dL 11.5-15.5 L HGB) HEMATOCRIT (test code = 25.6 % 36.0-46.0 L HCT) MEAN CELL VOLUME (test 105.8 fL 80-98 H code = MCV) MEAN CELL HGB (test code 31.4 picogram 27.0-33.0 N = MCH) MEAN CELL HGB 29.7 gram/dL 33.0-36.0 L CONCETRATION (test code = MCHC) RED CELL DISTRIBUTION 15.2 % 11.6-16.2 N WIDTH (test code = RDW) RED CELL DISTRIBUTION 59.3 fL 37.0-51.0 H WIDTH SD (test code = RDW-SD) PLATELET COUNT (test code 200 K/mm3 150-450 N = PLT) MEAN PLATELET VOLUME 11.8 fL 6.7-11.0 H (test code = MPV) NEUTROPHIL % (test code = 62.9 % 39.0-69.0 N NT%) IMMATURE GRANULOCYTE % 0.6 % 0.0-5.0 N (test code = IG%) LYMPHOCYTE % (test code = 22.1 % 25.0-55.0 L LY%) MONOCYTE % (test code = 11.1 % 0.0-10.0 H MO%) EOSINOPHIL % (test code = 3.1 % 0.0-5.0 N EO%) BASOPHIL % (test code = 0.2 % 0.0-1.0 N BA%) NUCLEATED RBC % (test 0.0 % 0-0 N code = NRBC%) NEUTROPHIL # (test code = 3.28 K/mm3 1.8-7.7 N NT#) IMMATURE GRANULOCYTE # 0.03 x10 3/uL 0-0.03 N (test code = IG#) LYMPHOCYTE # (test code = 1.15 K/mm3 1.0-5.0 N LY#) MONOCYTE # (test code = 0.58 K/mm3 0-0.8 N MO#) EOSINOPHIL # (test code = 0.16 K/mm3 0.0-0.5 N EO#) BASOPHIL # (test code = 0.01 K/mm3 0.0-0.2 N BA#) NUCLEATED RBC # (test 0.00 K/mm3 0.0-0.1 N code = NRBC#) MANUAL DIFF REQUIRED NO, ONLY SCAN NEEDED (test code = MDIFF) DIFFERENTIAL [id number] 06:16:00 Test Item Value Reference Range Interpretation Comments STAIN ACCEPTABILITY (test STAIN ACCEPTABLE code = STN ACCEPTABLE) PLATELET ESTIMATE (test code ADEQUATE = PLTEST) PLATELET MORPHOLOGY (test NORMAL code = PLTMORPH) [id number] 05:53:00 Test Item Value Reference Range Interpretation Comments GLUBED (test code = 81 mg/dL 74-106 N Performe d by certified GLUBED) pill machine operator at [facility] BASIC METABOLIC [id number] 05:50:00 Test Item Value Reference Range Interpretation Comments SODIUM (test code = 147 mmol/L 136-145 H NA) POTASSIUM (test code 4.0 mmol/L 3.5-5.1 N = K) CHLORIDE (test code = 120.0 mmol/L 98-107 H CL) CARBON DIOXIDE (test 22.0 mmol/L 21-32 N code = CO2) ANION GAP (test code 9.0 10-20 L = GAP) GLUCOSE (test code = 81 mg/dL 74-106 N GLU) BLOOD UREA NITROGEN 20 mg/dL 7-18 H RESULT V ERIFIED BY (test code = BUN) REPEAT STORM LYSIS GLOMERULAR FILTRATION > 60 mL/min >=60 Estima toya GFR by RATE (test code = using Duc fied MDRD GFR) formula.Chronic kidney disease is defined as eith er kidney damageor GFR <60 mL/min/1.73 m2 for >3 months. CREATININE (test code 0.90 mg/dL 0.55-1.02 N Note change in = CREAT) reference range due to change in reagent. BUN/CREATININE RATIO 22.2 10-20 H (test code = BUN/CREA) CALCIUM (test code = 9.0 mg/dL 8.5-10.1 N CA) CBC W/AUTO [id number] 05:18:00 Test Item Value Reference Range Interpretation Comments WHITE BLOOD CELL (test 5.2 K/mm3 4.5-12.5 N code = WBC) RED BLOOD CELL (test code 2.42 mill/mm3 3.7-5.2 L = RBC) HEMOGLOBIN (test code = 7.6 gram/dL 11.5-15.5 L HGB) HEMATOCRIT (test code = 25.6 % 36.0-46.0 L HCT) MEAN CELL VOLUME (test 105.8 fL 80-98 H code = MCV) MEAN CELL HGB (test code 31.4 picogram 27.0-33.0 N = MCH) MEAN CELL HGB 29.7 gram/dL 33.0-36.0 L CONCETRATION (test code = MCHC) RED CELL DISTRIBUTION 15.2 % 11.6-16.2 N WIDTH (test code = RDW) RED CELL DISTRIBUTION 59.3 fL 37.0-51.0 H WIDTH SD (test code = RDW-SD) PLATELET COUNT (test code 200 K/mm3 150-450 N = PLT) MEAN PLATELET VOLUME 11.8 fL 6.7-11.0 H (test code = MPV) NEUTROPHIL % (test code = 62.9 % 39.0-69.0 N NT%) IMMATURE GRANULOCYTE % 0.6 % 0.0-5.0 N (test code = IG%) LYMPHOCYTE % (test code = 22.1 % 25.0-55.0 L LY%) MONOCYTE % (test code = 11.1 % 0.0-10.0 H MO%) EOSINOPHIL % (test code = 3.1 % 0.0-5.0 N EO%) BASOPHIL % (test code = 0.2 % 0.0-1.0 N BA%) NUCLEATED RBC % (test 0.0 % 0-0 N code = NRBC%) NEUTROPHIL # (test code = 3.28 K/mm3 1.8-7.7 N NT#) IMMATURE GRANULOCYTE # 0.03 x10 3/uL 0-0.03 N (test code = IG#) LYMPHOCYTE # (test code = 1.15 K/mm3 1.0-5.0 N LY#) MONOCYTE # (test code = 0.58 K/mm3 0-0.8 N MO#) EOSINOPHIL # (test code = 0.16 K/mm3 0.0-0.5 N EO#) BASOPHIL # (test code = 0.01 K/mm3 0.0-0.2 N BA#) NUCLEATED RBC # (test 0.00 K/mm3 0.0-0.1 N code = NRBC#) MANUAL DIFF REQUIRED NO, ONLY SCAN NEEDED (test code = MDIFF) DIFFERENTIAL [id number] 05:18:00 Test Item Value Reference Range Interpretation Comments STAIN ACCEPTABILITY (test code = STN ACCEPTABLE) CABOT RINGS (test code = CAB) MORPHOLOGY COMMENT (test code = MOC) PLATELET ESTIMATE (test code = PLTEST) PLATELET MORPHOLOGY (test code = PLTMORPH) CBC W/AUTO [id number] 05:18:00 Test Item Value Reference Range Interpretation Comments WHITE BLOOD CELL (test 5.2 K/mm3 4.5-12.5 N code = WBC) RED BLOOD CELL (test code 2.42 mill/mm3 3.7-5.2 L = RBC) HEMOGLOBIN (test code = 7.6 gram/dL 11.5-15.5 L HGB) HEMATOCRIT (test code = 25.6 % 36.0-46.0 L HCT) MEAN CELL VOLUME (test 105.8 fL 80-98 H code = MCV) MEAN CELL HGB (test code 31.4 picogram 27.0-33.0 N = MCH) MEAN CELL HGB 29.7 gram/dL 33.0-36.0 L CONCETRATION (test code = MCHC) RED CELL DISTRIBUTION 15.2 % 11.6-16.2 N WIDTH (test code = RDW) RED CELL DISTRIBUTION 59.3 fL 37.0-51.0 H WIDTH SD (test code = RDW-SD) PLATELET COUNT (test code 200 K/mm3 150-450 N = PLT) MEAN PLATELET VOLUME 11.8 fL 6.7-11.0 H (test code = MPV) NEUTROPHIL % (test code = 62.9 % 39.0-69.0 N NT%) IMMATURE GRANULOCYTE % 0.6 % 0.0-5.0 N (test code = IG%) LYMPHOCYTE % (test code = 22.1 % 25.0-55.0 L LY%) MONOCYTE % (test code = 11.1 % 0.0-10.0 H MO%) EOSINOPHIL % (test code = 3.1 % 0.0-5.0 N EO%) BASOPHIL % (test code = 0.2 % 0.0-1.0 N BA%) NUCLEATED RBC % (test 0.0 % 0-0 N code = NRBC%) NEUTROPHIL # (test code = 3.28 K/mm3 1.8-7.7 N NT#) IMMATURE GRANULOCYTE # 0.03 x10 3/uL 0-0.03 N (test code = IG#) LYMPHOCYTE # (test code = 1.15 K/mm3 1.0-5.0 N LY#) MONOCYTE # (test code = 0.58 K/mm3 0-0.8 N MO#) EOSINOPHIL # (test code = 0.16 K/mm3 0.0-0.5 N EO#) BASOPHIL # (test code = 0.01 K/mm3 0.0-0.2 N BA#) NUCLEATED RBC # (test 0.00 K/mm3 0.0-0.1 N code = NRBC#) MANUAL DIFF REQUIRED NO, ONLY SCAN NEEDED (test code = MDIFF) DIFFERENTIAL [id number] 05:18:00 Test Item Value Reference Range Interpretation Comments STAIN ACCEPTABILITY (test code = STN ACCEPTABLE) MORPHOLOGY COMMENT (test code = MOC) PLATELET ESTIMATE (test code = PLTEST) PLATELET MORPHOLOGY (test code = PLTMORPH) CBC W/AUTO [id number] 05:18:00 Test Item Value Reference Range Interpretation Comments WHITE BLOOD CELL (test 5.2 K/mm3 4.5-12.5 N code = WBC) RED BLOOD CELL (test code 2.42 mill/mm3 3.7-5.2 L = RBC) HEMOGLOBIN (test code = 7.6 gram/dL 11.5-15.5 L HGB) HEMATOCRIT (test code = 25.6 % 36.0-46.0 L HCT) MEAN CELL VOLUME (test 105.8 fL 80-98 H code = MCV) MEAN CELL HGB (test code 31.4 picogram 27.0-33.0 N = MCH) MEAN CELL HGB 29.7 gram/dL 33.0-36.0 L CONCETRATION (test code = MCHC) RED CELL DISTRIBUTION 15.2 % 11.6-16.2 N WIDTH (test code = RDW) RED CELL DISTRIBUTION 59.3 fL 37.0-51.0 H WIDTH SD (test code = RDW-SD) PLATELET COUNT (test code 200 K/mm3 150-450 N = PLT) MEAN PLATELET VOLUME 11.8 fL 6.7-11.0 H (test code = MPV) NEUTROPHIL % (test code = 62.9 % 39.0-69.0 N NT%) IMMATURE GRANULOCYTE % 0.6 % 0.0-5.0 N (test code = IG%) LYMPHOCYTE % (test code = 22.1 % 25.0-55.0 L LY%) MONOCYTE % (test code = 11.1 % 0.0-10.0 H MO%) EOSINOPHIL % (test code = 3.1 % 0.0-5.0 N EO%) BASOPHIL % (test code = 0.2 % 0.0-1.0 N BA%) NUCLEATED RBC % (test 0.0 % 0-0 N code = NRBC%) NEUTROPHIL # (test code = 3.28 K/mm3 1.8-7.7 N NT#) IMMATURE GRANULOCYTE # 0.03 x10 3/uL 0-0.03 N (test code = IG#) LYMPHOCYTE # (test code = 1.15 K/mm3 1.0-5.0 N LY#) MONOCYTE # (test code = 0.58 K/mm3 0-0.8 N MO#) EOSINOPHIL # (test code = 0.16 K/mm3 0.0-0.5 N EO#) BASOPHIL # (test code = 0.01 K/mm3 0.0-0.2 N BA#) NUCLEATED RBC # (test 0.00 K/mm3 0.0-0.1 N code = NRBC#) MANUAL DIFF REQUIRED NO, ONLY SCAN NEEDED (test code = MDIFF) DIFFERENTIAL [id number] 05:18:00 Test Item Value Reference Range Interpretation Comments STAIN ACCEPTABILITY (test code = STN ACCEPTABLE) MORPHOLOGY COMMENT (test code = MOC) PLATELET ESTIMATE (test code = PLTEST) PLATELET MORPHOLOGY (test code = PLTMORPH) CBC W/AUTO [id number] 05:18:00 Test Item Value Reference Range Interpretation Comments WHITE BLOOD CELL (test 5.2 K/mm3 4.5-12.5 N code = WBC) RED BLOOD CELL (test code 2.42 mill/mm3 3.7-5.2 L = RBC) HEMOGLOBIN (test code = 7.6 gram/dL 11.5-15.5 L HGB) HEMATOCRIT (test code = 25.6 % 36.0-46.0 L HCT) MEAN CELL VOLUME (test 105.8 fL 80-98 H code = MCV) MEAN CELL HGB (test code 31.4 picogram 27.0-33.0 N = MCH) MEAN CELL HGB 29.7 gram/dL 33.0-36.0 L CONCETRATION (test code = MCHC) RED CELL DISTRIBUTION 15.2 % 11.6-16.2 N WIDTH (test code = RDW) RED CELL DISTRIBUTION 59.3 fL 37.0-51.0 H WIDTH SD (test code = RDW-SD) PLATELET COUNT (test code 200 K/mm3 150-450 N = PLT) MEAN PLATELET VOLUME 11.8 fL 6.7-11.0 H (test code = MPV) NEUTROPHIL % (test code = 62.9 % 39.0-69.0 N NT%) IMMATURE GRANULOCYTE % 0.6 % 0.0-5.0 N (test code = IG%) LYMPHOCYTE % (test code = 22.1 % 25.0-55.0 L LY%) MONOCYTE % (test code = 11.1 % 0.0-10.0 H MO%) EOSINOPHIL % (test code = 3.1 % 0.0-5.0 N EO%) BASOPHIL % (test code = 0.2 % 0.0-1.0 N BA%) NUCLEATED RBC % (test 0.0 % 0-0 N code = NRBC%) NEUTROPHIL # (test code = 3.28 K/mm3 1.8-7.7 N NT#) IMMATURE GRANULOCYTE # 0.03 x10 3/uL 0-0.03 N (test code = IG#) LYMPHOCYTE # (test code = 1.15 K/mm3 1.0-5.0 N LY#) MONOCYTE # (test code = 0.58 K/mm3 0-0.8 N MO#) EOSINOPHIL # (test code = 0.16 K/mm3 0.0-0.5 N EO#) BASOPHIL # (test code = 0.01 K/mm3 0.0-0.2 N BA#) NUCLEATED RBC # (test 0.00 K/mm3 0.0-0.1 N code = NRBC#) MANUAL DIFF REQUIRED NO, ONLY SCAN NEEDED (test code = MDIFF) DIFFERENTIAL [id number] 05:18:00 Test Item Value Reference Range Interpretation Comments STAIN ACCEPTABILITY (test code = STN ACCEPTABLE) CABOT RINGS (test code = CAB) MORPHOLOGY COMMENT (test code = MOC) PLATELET ESTIMATE (test code = PLTEST) PLATELET MORPHOLOGY (test code = PLTMORPH) RETICULOCYTE [id number] 05:16:00 Test Item Value Reference Interpretation Comments Range RETICULOCYTE COUNT 2.3 % 0.5-2.0 H (test code = RETICT) RETIC COUNT 0.064 0.016-0.095 N ABSOLUTE (test mill/mm3 code = RET#) IMMATURE 16.1 % 3.0-15.9 H Values above no rmal range RETICULOCYTE indicate an inc rease in FRACTION (test RBCcellular r esponse from code = IRF) bone marrow. RETICULOCYTE HGB 37.9 pg 28.2-35.7 H RET-He is a direct estimate EQUIVALENT (test of recent code = RETHE) functionalavai lability of iron in the deyvi l, therefore, decr easedRET-He is indicative o f iron deficiency. [id number] 05:16:00 Test Item Value Reference Range Interpretation Comments HAPTOGLOBIN (test code = 88 mg/dL 34-200 Per formed At: [facility]) [facility] [address] [id number] ra Clemencia DEAN Ph:[phone] [id number] 21:25:00 Test Item Value Reference Range Interpretation Comments GLUBED (test code = 99 mg/dL 74-106 N Performe d by certified GLUBED) pill machine operator at [facility] [id number] 13:25:00 Test Item Value Reference Range Interpretation Comments GLUBED (test code = 96 mg/dL 74-106 N Performe d by certified GLUBED) pill machine operator at [facility] PROTEIN ELECTROPHORESIS [id number] 10:19:00 Test Item Value Reference Range Interpretation Comments TOTAL PROTEIN (test code = PROTE) gram/dL 6.0-8.5 ALBUMIN (test code = ALBE) gram/dL 2.9-4.4 [id number] (test code = A1G) 0.0-0.4 [id number] (test code = A2G) gram/dL 0.4-1.0 BETA GLOBULIN (test code = BG) gram/dL 0.7-1.3 GAMMA GLOBULIN (test code = GG) gram/dL 0.4-1.8 M-SPIKE,SERUM (test code = MSPIKES) Not Observe GLOBULIN ELECT (test code = GLOBE) 2.2-3.9 LACTIC DEHYDROGENASE(LDH)2018-08-07 10:19:00 Test Item Value Reference Range Interpretation Comments LACTIC DEHYDROGENASE(LDH) (test 139 IUnit/L 84-246 N code = LDH) KAPPA LAMBDA [id number] 10:19:00 Test Item Value Reference Range Interpretation Comments KAPPA CHAINS (FLOW) (test code = KAPPA) LAMBDA CHAINS (FLOW) (test code = LAMBDA) KAPPA/LAMBDA RATIO (test code = RATIO SHERYL/ANNE) METHYLMALONIC [id number] 10:19:00 Test Item Value Reference Range Interpretation Comments METHYLMALONIC ACID (test code = nmol/L METHM) [id number] 10:19:00 Test Item Value Reference Range Interpretation Comments HOMOCYSTEINE (test code 16.3 umol/L 0.0-15.0 H Perf ormed At: HD = HOMOCY) [facility] [address] [id number] Kyle L MD Ph:[phone] [id number] 10:19:00 Test Item Value Reference Range Interpretation Comments [id number] TEST NOT PERFORMED <2400 NO UR INE RECD IN ULIN URINE (test mg/L LAB W/THIS ORDER - code = MICB2) REORDERED-SEE 0124;C658 CBC W/AUTO [id number] 06:51:00 Test Item Value Reference Range Interpretation Comments WHITE BLOOD CELL (test 6.0 K/mm3 4.5-12.5 N code = WBC) RED BLOOD CELL (test code 2.46 mill/mm3 3.7-5.2 L = RBC) HEMOGLOBIN (test code = 7.7 gram/dL 11.5-15.5 L HGB) HEMATOCRIT (test code = 25.9 % 36.0-46.0 L HCT) MEAN CELL VOLUME (test 105.3 fL 80-98 H code = MCV) MEAN CELL HGB (test code 31.3 picogram 27.0-33.0 N = MCH) MEAN CELL HGB 29.7 gram/dL 33.0-36.0 L CONCETRATION (test code = MCHC) RED CELL DISTRIBUTION 15.3 % 11.6-16.2 N WIDTH (test code = RDW) RED CELL DISTRIBUTION 59.1 fL 37.0-51.0 H WIDTH SD (test code = RDW-SD) PLATELET COUNT (test code 204 K/mm3 150-450 N = PLT) MEAN PLATELET VOLUME 11.2 fL 6.7-11.0 H (test code = MPV) NEUTROPHIL % (test code = 63.2 % 39.0-69.0 N NT%) IMMATURE GRANULOCYTE % 0.5 % 0.0-5.0 N (test code = IG%) LYMPHOCYTE % (test code = 22.2 % 25.0-55.0 L LY%) MONOCYTE % (test code = 12.0 % 0.0-10.0 H MO%) EOSINOPHIL % (test code = 1.8 % 0.0-5.0 N EO%) BASOPHIL % (test code = 0.3 % 0.0-1.0 N BA%) NUCLEATED RBC % (test 0.0 % 0-0 N code = NRBC%) NEUTROPHIL # (test code = 3.79 K/mm3 1.8-7.7 N NT#) IMMATURE GRANULOCYTE # 0.03 x10 3/uL 0-0.03 N (test code = IG#) LYMPHOCYTE # (test code = 1.33 K/mm3 1.0-5.0 N LY#) MONOCYTE # (test code = 0.72 K/mm3 0-0.8 N MO#) EOSINOPHIL # (test code = 0.11 K/mm3 0.0-0.5 N EO#) BASOPHIL # (test code = 0.02 K/mm3 0.0-0.2 N BA#) NUCLEATED RBC # (test 0.00 K/mm3 0.0-0.1 N code = NRBC#) MANUAL DIFF REQUIRED NO, ONLY SCAN NEEDED (test code = MDIFF) DIFFERENTIAL [id number] 06:51:00 Test Item Value Reference Range Interpretation Comments STAIN ACCEPTABILITY (test STAIN ACCEPTABLE code = STN ACCEPTABLE) HYPOCHROMIA (test code = 1+ HYPO) ANISOCYTOSIS (test code = 1+ ANISO) MACROCYTOSIS (test code = 1+ MACR) PLATELET ESTIMATE (test code ADEQUATE = PLTEST) PLATELET MORPHOLOGY (test NORMAL code = PLTMORPH) [id number] 05:40:00 Test Item Value Reference Range Interpretation Comments GLUBED (test code = 111 mg/dL 74-106 H Performe d by certified GLUBED) pill machine operator at [facility] BASIC METABOLIC [id number] 05:15:00 Test Item Value Reference Range Interpretation Comments SODIUM (test code = 146 mmol/L 136-145 H NA) POTASSIUM (test code 4.7 mmol/L 3.5-5.1 N = K) CHLORIDE (test code = 118.0 mmol/L 98-107 H CL) CARBON DIOXIDE (test 22.0 mmol/L 21-32 N code = CO2) ANION GAP (test code 10.7 10-20 N = GAP) GLUCOSE (test code = 114 mg/dL 74-106 H GLU) BLOOD UREA NITROGEN 41 mg/dL 7-18 H (test code = BUN) GLOMERULAR FILTRATION 49 mL/min >=60 Estima toya GFR by RATE (test code = using Duc fied MDRD GFR) formula.Chronic kidney disease is defined as [facility] er kidney damageor GFR <60 mL/min/1.73 m2 for >3 months. CREATININE (test code 1.10 mg/dL 0.55-1.02 H Note change in = CREAT) reference range due to change in reagent. BUN/CREATININE RATIO 36.3 10-20 H (test code = BUN/CREA) CALCIUM (test code = 8.8 mg/dL 8.5-10.1 N CA) BASIC METABOLIC [id number] 05:06:00 Test Item Value Reference Range Interpretation Comments SODIUM (test code = NA) 146 mmol/L 136-145 H POTASSIUM (test code = K) 4.7 mmol/L 3.5-5.1 N CHLORIDE (test code = CL) 118.0 mmol/L 98-107 H CARBON DIOXIDE (test code = CO2) mmol/L 21-32 ANION GAP (test code = GAP) 10-20 GLUCOSE (test code = GLU) mg/dL 74-106 BLOOD UREA NITROGEN (test code = mg/dL 7-18 BUN) GLOMERULAR FILTRATION RATE (test mL/min >=60 code = GFR) CREATININE (test code = CREAT) mg/dL 0.55-1.02 BUN/CREATININE RATIO (test code 10-20 = BUN/CREA) CALCIUM (test code = CA) mg/dL 8.5-10.1 CBC W/AUTO [id number] 04:40:00 Test Item Value Reference Range Interpretation Comments WHITE BLOOD CELL (test 6.0 K/mm3 4.5-12.5 N code = WBC) RED BLOOD CELL (test code 2.46 mill/mm3 3.7-5.2 L = RBC) HEMOGLOBIN (test code = 7.7 gram/dL 11.5-15.5 L HGB) HEMATOCRIT (test code = 25.9 % 36.0-46.0 L HCT) MEAN CELL VOLUME (test 105.3 fL 80-98 H code = MCV) MEAN CELL HGB (test code 31.3 picogram 27.0-33.0 N = MCH) MEAN CELL HGB 29.7 gram/dL 33.0-36.0 L CONCETRATION (test code = MCHC) RED CELL DISTRIBUTION 15.3 % 11.6-16.2 N WIDTH (test code = RDW) RED CELL DISTRIBUTION 59.1 fL 37.0-51.0 H WIDTH SD (test code = RDW-SD) PLATELET COUNT (test code 204 K/mm3 150-450 N = PLT) MEAN PLATELET VOLUME 11.2 fL 6.7-11.0 H (test code = MPV) NEUTROPHIL % (test code = 63.2 % 39.0-69.0 N NT%) IMMATURE GRANULOCYTE % 0.5 % 0.0-5.0 N (test code = IG%) LYMPHOCYTE % (test code = 22.2 % 25.0-55.0 L LY%) MONOCYTE % (test code = 12.0 % 0.0-10.0 H MO%) EOSINOPHIL % (test code = 1.8 % 0.0-5.0 N EO%) BASOPHIL % (test code = 0.3 % 0.0-1.0 N BA%) NUCLEATED RBC % (test 0.0 % 0-0 N code = NRBC%) NEUTROPHIL # (test code = 3.79 K/mm3 1.8-7.7 N NT#) IMMATURE GRANULOCYTE # 0.03 x10 3/uL 0-0.03 N (test code = IG#) LYMPHOCYTE # (test code = 1.33 K/mm3 1.0-5.0 N LY#) MONOCYTE # (test code = 0.72 K/mm3 0-0.8 N MO#) EOSINOPHIL # (test code = 0.11 K/mm3 0.0-0.5 N EO#) BASOPHIL # (test code = 0.02 K/mm3 0.0-0.2 N BA#) NUCLEATED RBC # (test 0.00 K/mm3 0.0-0.1 N code = NRBC#) MANUAL DIFF REQUIRED NO, ONLY SCAN NEEDED (test code = MDIFF) DIFFERENTIAL [id number] 04:40:00 Test Item Value Reference Range Interpretation Comments STAIN ACCEPTABILITY (test code = STN ACCEPTABLE) CABOT RINGS (test code = CAB) MORPHOLOGY COMMENT (test code = MOC) PLATELET ESTIMATE (test code = PLTEST) PLATELET MORPHOLOGY (test code = PLTMORPH) CBC W/AUTO [id number] 04:40:00 Test Item Value Reference Range Interpretation Comments WHITE BLOOD CELL (test 6.0 K/mm3 4.5-12.5 N code = WBC) RED BLOOD CELL (test code 2.46 mill/mm3 3.7-5.2 L = RBC) HEMOGLOBIN (test code = 7.7 gram/dL 11.5-15.5 L HGB) HEMATOCRIT (test code = 25.9 % 36.0-46.0 L HCT) MEAN CELL VOLUME (test 105.3 fL 80-98 H code = MCV) MEAN CELL HGB (test code 31.3 picogram 27.0-33.0 N = MCH) MEAN CELL HGB 29.7 gram/dL 33.0-36.0 L CONCETRATION (test code = MCHC) RED CELL DISTRIBUTION 15.3 % 11.6-16.2 N WIDTH (test code = RDW) RED CELL DISTRIBUTION 59.1 fL 37.0-51.0 H WIDTH SD (test code = RDW-SD) PLATELET COUNT (test code 204 K/mm3 150-450 N = PLT) MEAN PLATELET VOLUME 11.2 fL 6.7-11.0 H (test code = MPV) NEUTROPHIL % (test code = 63.2 % 39.0-69.0 N NT%) IMMATURE GRANULOCYTE % 0.5 % 0.0-5.0 N (test code = IG%) LYMPHOCYTE % (test code = 22.2 % 25.0-55.0 L LY%) MONOCYTE % (test code = 12.0 % 0.0-10.0 H MO%) EOSINOPHIL % (test code = 1.8 % 0.0-5.0 N EO%) BASOPHIL % (test code = 0.3 % 0.0-1.0 N BA%) NUCLEATED RBC % (test 0.0 % 0-0 N code = NRBC%) NEUTROPHIL # (test code = 3.79 K/mm3 1.8-7.7 N NT#) IMMATURE GRANULOCYTE # 0.03 x10 3/uL 0-0.03 N (test code = IG#) LYMPHOCYTE # (test code = 1.33 K/mm3 1.0-5.0 N LY#) MONOCYTE # (test code = 0.72 K/mm3 0-0.8 N MO#) EOSINOPHIL # (test code = 0.11 K/mm3 0.0-0.5 N EO#) BASOPHIL # (test code = 0.02 K/mm3 0.0-0.2 N BA#) NUCLEATED RBC # (test 0.00 K/mm3 0.0-0.1 N code = NRBC#) MANUAL DIFF REQUIRED NO, ONLY SCAN NEEDED (test code = MDIFF) DIFFERENTIAL [id number] 04:40:00 Test Item Value Reference Range Interpretation Comments STAIN ACCEPTABILITY (test code = STN ACCEPTABLE) CABOT RINGS (test code = CAB) MORPHOLOGY COMMENT (test code = MOC) PLATELET ESTIMATE (test code = PLTEST) PLATELET MORPHOLOGY (test code = PLTMORPH) CBC W/AUTO [id number] 04:40:00 Test Item Value Reference Range Interpretation Comments WHITE BLOOD CELL (test 6.0 K/mm3 4.5-12.5 N code = WBC) RED BLOOD CELL (test code 2.46 mill/mm3 3.7-5.2 L = RBC) HEMOGLOBIN (test code = 7.7 gram/dL 11.5-15.5 L HGB) HEMATOCRIT (test code = 25.9 % 36.0-46.0 L HCT) MEAN CELL VOLUME (test 105.3 fL 80-98 H code = MCV) MEAN CELL HGB (test code 31.3 picogram 27.0-33.0 N = MCH) MEAN CELL HGB 29.7 gram/dL 33.0-36.0 L CONCETRATION (test code = MCHC) RED CELL DISTRIBUTION 15.3 % 11.6-16.2 N WIDTH (test code = RDW) RED CELL DISTRIBUTION 59.1 fL 37.0-51.0 H WIDTH SD (test code = RDW-SD) PLATELET COUNT (test code 204 K/mm3 150-450 N = PLT) MEAN PLATELET VOLUME 11.2 fL 6.7-11.0 H (test code = MPV) NEUTROPHIL % (test code = 63.2 % 39.0-69.0 N NT%) IMMATURE GRANULOCYTE % 0.5 % 0.0-5.0 N (test code = IG%) LYMPHOCYTE % (test code = 22.2 % 25.0-55.0 L LY%) MONOCYTE % (test code = 12.0 % 0.0-10.0 H MO%) EOSINOPHIL % (test code = 1.8 % 0.0-5.0 N EO%) BASOPHIL % (test code = 0.3 % 0.0-1.0 N BA%) NUCLEATED RBC % (test 0.0 % 0-0 N code = NRBC%) NEUTROPHIL # (test code = 3.79 K/mm3 1.8-7.7 N NT#) IMMATURE GRANULOCYTE # 0.03 x10 3/uL 0-0.03 N (test code = IG#) LYMPHOCYTE # (test code = 1.33 K/mm3 1.0-5.0 N LY#) MONOCYTE # (test code = 0.72 K/mm3 0-0.8 N MO#) EOSINOPHIL # (test code = 0.11 K/mm3 0.0-0.5 N EO#) BASOPHIL # (test code = 0.02 K/mm3 0.0-0.2 N BA#) NUCLEATED RBC # (test 0.00 K/mm3 0.0-0.1 N code = NRBC#) MANUAL DIFF REQUIRED NO, ONLY SCAN NEEDED (test code = MDIFF) DIFFERENTIAL [id number] 04:40:00 Test Item Value Reference Range Interpretation Comments STAIN ACCEPTABILITY (test code = STN ACCEPTABLE) MORPHOLOGY COMMENT (test code = MOC) PLATELET ESTIMATE (test code = PLTEST) PLATELET MORPHOLOGY (test code = PLTMORPH) CBC W/AUTO [id number] 04:40:00 Test Item Value Reference Range Interpretation Comments WHITE BLOOD CELL (test 6.0 K/mm3 4.5-12.5 N code = WBC) RED BLOOD CELL (test code 2.46 mill/mm3 3.7-5.2 L = RBC) HEMOGLOBIN (test code = 7.7 gram/dL 11.5-15.5 L HGB) HEMATOCRIT (test code = 25.9 % 36.0-46.0 L HCT) MEAN CELL VOLUME (test 105.3 fL 80-98 H code = MCV) MEAN CELL HGB (test code 31.3 picogram 27.0-33.0 N = MCH) MEAN CELL HGB 29.7 gram/dL 33.0-36.0 L CONCETRATION (test code = MCHC) RED CELL DISTRIBUTION 15.3 % 11.6-16.2 N WIDTH (test code = RDW) RED CELL DISTRIBUTION 59.1 fL 37.0-51.0 H WIDTH SD (test code = RDW-SD) PLATELET COUNT (test code 204 K/mm3 150-450 N = PLT) MEAN PLATELET VOLUME 11.2 fL 6.7-11.0 H (test code = MPV) NEUTROPHIL % (test code = 63.2 % 39.0-69.0 N NT%) IMMATURE GRANULOCYTE % 0.5 % 0.0-5.0 N (test code = IG%) LYMPHOCYTE % (test code = 22.2 % 25.0-55.0 L LY%) MONOCYTE % (test code = 12.0 % 0.0-10.0 H MO%) EOSINOPHIL % (test code = 1.8 % 0.0-5.0 N EO%) BASOPHIL % (test code = 0.3 % 0.0-1.0 N BA%) NUCLEATED RBC % (test 0.0 % 0-0 N code = NRBC%) NEUTROPHIL # (test code = 3.79 K/mm3 1.8-7.7 N NT#) IMMATURE GRANULOCYTE # 0.03 x10 3/uL 0-0.03 N (test code = IG#) LYMPHOCYTE # (test code = 1.33 K/mm3 1.0-5.0 N LY#) MONOCYTE # (test code = 0.72 K/mm3 0-0.8 N MO#) EOSINOPHIL # (test code = 0.11 K/mm3 0.0-0.5 N EO#) BASOPHIL # (test code = 0.02 K/mm3 0.0-0.2 N BA#) NUCLEATED RBC # (test 0.00 K/mm3 0.0-0.1 N code = NRBC#) MANUAL DIFF REQUIRED NO, ONLY SCAN NEEDED (test code = MDIFF) DIFFERENTIAL [id number] 04:40:00 Test Item Value Reference Range Interpretation Comments STAIN ACCEPTABILITY (test code = STN ACCEPTABLE) CABOT RINGS (test code = CAB) MORPHOLOGY COMMENT (test code = MOC) PLATELET ESTIMATE (test code = PLTEST) PLATELET MORPHOLOGY (test code = PLTMORPH) [id number] 20:55:00 Test Item Value Reference Range Interpretation Comments GLUBED (test code = 124 mg/dL 74-106 H Performe d by certified GLUBED) pill machine operator at [facility] SMEAR PERIPHERAL [id number] 17:54:00 Test Item Value Reference Range Interpretation Comments SMEAR PERIPHERAL BLOOD PATH REV PATH REVIEW Celia l WBC with (test code = BLDSM) monocyto sis.Mild- moderate macroc ytic anemia.No blast s identified. Rev iewed by: CORY LUCERO M.D.08/06/18 [id number] 16:33:00 Test Item Value Reference Range Interpretation Comments GLUBED (test code = 142 mg/dL 74-106 H Performe d by certified GLUBED) pill machine operator at [facility] PROTEIN ELECTROPHORESIS [id number] 12:55:00 Test Item Value Reference Range Interpretation Comments TOTAL PROTEIN (test code = PROTE) gram/dL 6.0-8.5 ALBUMIN (test code = ALBE) gram/dL 2.9-4.4 [id number] (test code = A1G) 0.0-0.4 [id number]-[id number] (test code = A2G) gram/dL 0.4-1.0 BETA GLOBULIN (test code = BG) gram/dL 0.7-1.3 GAMMA GLOBULIN (test code = GG) gram/dL 0.4-1.8 M-SPIKE,SERUM (test code = MSPIKES) Not Observe GLOBULIN ELECT (test code = GLOBE) 2.2-3.9 LACTIC DEHYDROGENASE(LDH)2018-08-06 12:55:00 Test Item Value Reference Range Interpretation Comments LACTIC DEHYDROGENASE(LDH) (test 139 IUnit/L 84-246 N code = LDH) KAPPA LAMBDA [id number] 12:55:00 Test Item Value Reference Range Interpretation Comments KAPPA CHAINS (FLOW) (test code = KAPPA) LAMBDA CHAINS (FLOW) (test code = LAMBDA) KAPPA/LAMBDA RATIO (test code = RATIO SHERYL/ANNE) METHYLMALONIC [id number] 12:55:00 Test Item Value Reference Range Interpretation Comments METHYLMALONIC ACID (test code = nmol/L METHM) [id number] 12:55:00 Test Item Value Reference Range Interpretation Comments HOMOCYSTEINE (test code = HOMOCY) umol/L [id number] 12:55:00 Test Item Value Reference Range Interpretation Comments [id number] TEST NOT PERFORMED <2400 NO UR INE RECD IN ULIN URINE (test mg/L LAB W/THIS ORDER - code = MICB2) REORDERED-SEE 0124;C658 PROTEIN ELECTROPHORESIS [id number] 12:16:00 Test Item Value Reference Range Interpretation Comments TOTAL PROTEIN (test code = PROTE) gram/dL 6.0-8.5 ALBUMIN (test code = ALBE) gram/dL 2.9-4.4 RZQLN-1-QHECXGYH (test code = A1G) 0.0-0.4 NZCGJ-5-[id number] (test code = A2G) gram/dL 0.4-1.0 BETA GLOBULIN (test code = BG) gram/dL 0.7-1.3 GAMMA GLOBULIN (test code = GG) gram/dL 0.4-1.8 M-SPIKE,SERUM (test code = MSPIKES) Not Observe GLOBULIN ELECT (test code = GLOBE) 2.2-3.9 LACTIC DEHYDROGENASE(LDH)2018-08-06 12:16:00 Test Item Value Reference Range Interpretation Comments LACTIC DEHYDROGENASE(LDH) (test code IUnit/L 84-246 = LDH) KAPPA LAMBDA [id number] 12:16:00 Test Item Value Reference Range Interpretation Comments KAPPA CHAINS (FLOW) (test code = KAPPA) LAMBDA CHAINS (FLOW) (test code = LAMBDA) KAPPA/LAMBDA RATIO (test code = RATIO SHERYL/ANNE) METHYLMALONIC [id number] 12:16:00 Test Item Value Reference Range Interpretation Comments METHYLMALONIC ACID (test code = nmol/L METHM) [id number] 12:16:00 Test Item Value Reference Range Interpretation Comments HOMOCYSTEINE (test code = HOMOCY) umol/L [id number] 12:16:00 Test Item Value Reference Range Interpretation Comments [id number] TEST NOT PERFORMED <2400 NO UR INE RECD IN ULIN URINE (test mg/L LAB W/THIS ORDER - code = MICB2) REORDERED-SEE 0124;C658 PROTEIN ELECTROPHORESIS [id number] 12:15:00 Test Item Value Reference Range Interpretation Comments TOTAL PROTEIN (test code = PROTE) gram/dL 6.0-8.5 ALBUMIN (test code = ALBE) gram/dL 2.9-4.4 [id number]-8-[id number] (test code = A1G) 0.0-0.4 [id number]-5-[id number] (test code = A2G) gram/dL 0.4-1.0 BETA GLOBULIN (test code = BG) gram/dL 0.7-1.3 GAMMA GLOBULIN (test code = GG) gram/dL 0.4-1.8 M-SPIKE,SERUM (test code = MSPIKES) Not Observe GLOBULIN ELECT (test code = GLOBE) 2.2-3.9 LACTIC DEHYDROGENASE(LDH)2018-08-06 12:15:00 Test Item Value Reference Range Interpretation Comments LACTIC DEHYDROGENASE(LDH) (test code IUnit/L 84-246 = LDH) KAPPA LAMBDA [id number] 12:15:00 Test Item Value Reference Range Interpretation Comments KAPPA CHAINS (FLOW) (test code = KAPPA) LAMBDA CHAINS (FLOW) (test code = LAMBDA) KAPPA/LAMBDA RATIO (test code = RATIO SHERYL/ANNE) METHYLMALONIC [id number] 12:15:00 Test Item Value Reference Range Interpretation Comments METHYLMALONIC ACID (test code = nmol/L METHM) [id number] 12:15:00 Test Item Value Reference Range Interpretation Comments HOMOCYSTEINE (test code = HOMOCY) umol/L [id number] 12:15:00 Test Item Value Reference Range Interpretation Comments [id number] TEST NOT PERFORMED <2400 REORD ERED - SEE ULIN URINE (test mg/L 0124;C658 code = MICB2) [id number] 12:07:00 Test Item Value Reference Range Interpretation Comments GLUBED (test code = 121 mg/dL 74-106 H Performe d by certified GLUBED) pill machine operator at [facility] LIPID PROFILE (CORONARY RISK)2018-08-06 12:04:00 Test Item Value Reference Range Interpretation Comments TRIGLYCERIDES (test 155 mg/dL 20-150 H code = TRIG) CHOLESTEROL (test code 187 mg/dL 0-200 N = CHOL) CHOLESTEROL/HDL RATIO 4.0 RATIO 0-4.9 N RISK A SSOCIATED WITH (test code = CHOLHDL) CHOL/H DL RATIOS: Risk M guero Female1/[address] RAGE 3.43 3.27AVERAGE 4.97 4.4 42X AVERAGE 9[address] RAGE 23.39 11.04 REFERENCE VALUE IS RELATED TO RISK LEVELS ASRECOMMENDED B Y THE JEZ. HEART, HEAVEN G, AND BLOOD INST. HDL CHOLESTEROL (test 38 mg/dL 40-60 L code = HDL) LIPOPROTEIN LDL (test 127 mg/dL 100-129 N RN PER [place], CONTACT code = LDL) PHYSICIAN IMMED IATELY IF THIS IS A ST [place], AMI OR CAROTID STENOSIS PATIEN T WHEN THE LDL >100 ([address] OCCURENCE, THIS ADMISSION)===== ======= ======= ======= ===Reference In terval: mg/dL mmol/L-------- ------- ------- ------- Optimal <100 <2.6Near/above optimal 100-12 9 2.6-3.3Borderl ine High 130-159 3.4-4.1High 160 -189 4.1-4.9Very High >=190 >=4.9========= This LDL result is a direct measurement.=== ====== SPECIMEN COMMENTS: add to labsTHYROID STIMULATING [id number] 12:04:00 Test Item Value Reference Range Interpretation Comments THYROID STIMULATING 0.688 uIU/mL 0.36-3.74 N TSH REFE RENCE HORMONE (test code = RANGES: EUTHYROID: TSH) 0.35 - 4.3 mIU/mL HYPO : > 5.5 mIU/mL HYPER : < 0.35 mIU/mL SPECIMEN COMMENTS: add to labsRETICULOCYTE [id number] 11:16:00 Test Item Value Reference Interpretation Comments Range RETICULOCYTE COUNT 2.3 % 0.5-2.0 H (test code = RETICT) RETIC COUNT 0.064 0.016-0.095 N ABSOLUTE (test mill/mm3 code = RET#) IMMATURE 16.1 % 3.0-15.9 H Values above no rmal range RETICULOCYTE indicate an inc rease in FRACTION (test RBCcellular r esponse from code = IRF) bone marrow. RETICULOCYTE HGB 37.9 pg 28.2-35.7 H RET-He is a direct estimate EQUIVALENT (test of recent code = RETHE) functionalavai lability of iron in the deyvi l, therefore, decr easedRET-He is indicative o f iron deficiency. [id number] 11:16:00 Test Item Value Reference Range Interpretation Comments HAPTOGLOBIN (test code = HAPT) mg/dL BASIC METABOLIC [id number] 05:04:00 Test Item Value Reference Range Interpretation Comments SODIUM (test code = 145 mmol/L 136-145 RESULT V ERIFIED BY NA) REPEAT ANALYSIS POTASSIUM (test code 4.7 mmol/L 3.5-5.1 N = K) CHLORIDE (test code = 118.0 mmol/L 98-107 H CL) CARBON DIOXIDE (test 20.0 mmol/L 21-32 L code = CO2) ANION GAP (test code 11.7 10-20 N = GAP) GLUCOSE (test code = 116 mg/dL 74-106 H GLU) BLOOD UREA NITROGEN 68 mg/dL 7-18 H RESULT V ERIFIED BY (test code = BUN) REPEAT STORM LYSIS GLOMERULAR FILTRATION 34 mL/min >=60 Estima toya GFR by RATE (test code = using Duc fied MDRD GFR) formula.Chronic kidney disease is defined as eith er kidney damageor GFR <60 mL/min/1.73 m2 for >3 months. CREATININE (test code 1.50 mg/dL 0.55-1.02 H Note change in = CREAT) reference range due to change in reagent. BUN/CREATININE RATIO 45.3 10-20 H (test code = BUN/CREA) CALCIUM (test code = 8.0 mg/dL 8.5-10.1 L CA) CBC W/AUTO [id number] 04:51:00 Test Item Value Reference Range Interpretation Comments WHITE BLOOD CELL (test code = 5.2 K/mm3 4.5-12.5 N WBC) RED BLOOD CELL (test code = 2.47 mill/mm3 3.7-5.2 L RBC) HEMOGLOBIN (test code = HGB) 7.9 gram/dL 11.5-15.5 L HEMATOCRIT (test code = HCT) 25.9 % 36.0-46.0 L MEAN CELL VOLUME (test code = 104.9 fL 80-98 H MCV) MEAN CELL HGB (test code = MCH) 32.0 picogram 27.0-33.0 N MEAN CELL HGB CONCETRATION 30.5 gram/dL 33.0-36.0 L (test code = MCHC) RED CELL DISTRIBUTION WIDTH 15.2 % 11.6-16.2 N (test code = RDW) RED CELL DISTRIBUTION WIDTH SD 58.4 fL 37.0-51.0 H (test code = RDW-SD) PLATELET COUNT (test code = 208 K/mm3 150-450 N PLT) MEAN PLATELET VOLUME (test code 11.2 fL 6.7-11.0 H = MPV) NEUTROPHIL % (test code = NT%) 53.2 % 39.0-69.0 N IMMATURE GRANULOCYTE % (test 0.6 % 0.0-5.0 N code = IG%) LYMPHOCYTE % (test code = LY%) 30.8 % 25.0-55.0 N MONOCYTE % (test code = MO%) 13.1 % 0.0-10.0 H EOSINOPHIL % (test code = EO%) 1.9 % 0.0-5.0 N BASOPHIL % (test code = BA%) 0.4 % 0.0-1.0 N NUCLEATED RBC % (test code = 0.0 % 0-0 N NRBC%) NEUTROPHIL # (test code = NT#) 2.76 K/mm3 1.8-7.7 N IMMATURE GRANULOCYTE # (test 0.03 x10 3/uL 0-0.03 N code = IG#) LYMPHOCYTE # (test code = LY#) 1.60 K/mm3 1.0-5.0 N MONOCYTE # (test code = MO#) 0.68 K/mm3 0-0.8 N EOSINOPHIL # (test code = EO#) 0.10 K/mm3 0.0-0.5 N BASOPHIL # (test code = BA#) 0.02 K/mm3 0.0-0.2 N NUCLEATED RBC # (test code = 0.00 K/mm3 0.0-0.1 N NRBC#) MANUAL DIFF REQUIRED (test code NO = MDIFF) - XR CHEST 1 [id number] 22:47:00 FAX: Nohelia Burroughs MD [phone] [place]: St: ADM FAX: Shanda Jd Garay [facility] [phone] Name: LILIANA PATHAK [facility] : 1945 Age/S: 73/F [address] Unit #: [id number] Loc: V.2059 [place] [address] Phys: Nohelia Mcnally MD Acct: [id number] Dis Date: Status: ADM IN PHONE #: [phone] Exam Date: 08/05/2018 1450 FAX #: [phone] Reason: COUGHING EXAMS: CPT CODE: [id number] XR CHEST 1 V [id number] EXAM: Chest x-ray, one view; INFORMATION: Chest pain and cough; IMPRESSION:1. No evidence of active cardiopulmonary disease. 2. No significant change compared with the study obtained earlier today. at 2247 Reportedand signed by: Soham Hammond M.D. CC: Nohelia Mcnally MD; Jd Garay DO Technologist: MARSHALL BLAKE; Dre Soria RT(R Trnscrd Date/Time/By: 08/05/2018 (6698) : By: Ida Orig Print D/T: S: 08/05/2018 (7074) PAGE 1 Signed [id number] 18:59:00 Test Item Value Reference Range Interpretation Comments TROPONIN-I (test code = TROPI) <0.015 ng/mL 0-0.045 N [id number] 17:04:00 Test Item Value Reference Range Interpretation Comments GLUBED (test code = 117 mg/dL 74-106 H Performe d by certified GLUBED) pill machine operator at [facility] [id number] 17:03:00 Test Item Value Reference Range Interpretation Comments GLUBED (test code = 117 mg/dL 74-106 H Performe d by certified GLUBED) pill machine operator at [facility] VITAMIN [id number] 13:56:00 Test Item Value Reference Range Interpretation Comments VITAMIN B12 (test code = VITB12) 3878 pg/mL 193-986 H FOLIC [id number] 13:56:00 Test Item Value Reference Range Interpretation Comments FOLIC ACID (test code = FOL) 8.7 ng/mL 3.10-17.50 N [id number] 13:19:00 Test Item Value Reference Range Interpretation Comments TROPONIN-I (test code = TROPI) <0.015 ng/mL 0-0.045 N [id number] 11:28:00 Test Item Value Reference Range Interpretation Comments GLUBED (test code = 171 mg/dL 74-106 H Performe d by certified GLUBED) pill machine operator at [facility] CBC W/AUTO [id number] 09:16:00 Test Item Value Reference Range Interpretation Comments WHITE BLOOD CELL 5.4 K/mm3 4.5-12.5 N (test code = WBC) RED BLOOD CELL (test 2.64 mill/mm3 3.7-5.2 L code = RBC) HEMOGLOBIN (test code 8.5 gram/dL 11.5-15.5 L = HGB) HEMATOCRIT (test code 29.2 % 36.0-46.0 L = HCT) MEAN CELL VOLUME 110.6 fL 80-98 H RESULT VERI FIED (test code = MCV) BY REPEAT ANALYSIS MEAN CELL HGB (test 32.2 picogram 27.0-33.0 N code = MCH) MEAN CELL HGB 29.1 gram/dL 33.0-36.0 L CONCETRATION (test code = MCHC) RED CELL DISTRIBUTION 15.1 % 11.6-16.2 N WIDTH (test code = RDW) RED CELL DISTRIBUTION 61.6 fL 37.0-51.0 H WIDTH SD (test code = RDW-SD) PLATELET COUNT (test 211 K/mm3 150-450 N RESULT VERIFIED code = PLT) BY REPEAT ANALYSIS MEAN PLATELET VOLUME 11.4 fL 6.7-11.0 H (test code = MPV) NEUTROPHIL % (test 49.7 % 39.0-69.0 N code = NT%) IMMATURE GRANULOCYTE 0.7 % 0.0-5.0 N % (test code = IG%) LYMPHOCYTE % (test 33.2 % 25.0-55.0 N code = LY%) MONOCYTE % (test code 15.5 % 0.0-10.0 H = MO%) EOSINOPHIL % (test 0.7 % 0.0-5.0 N code = EO%) BASOPHIL % (test code 0.2 % 0.0-1.0 N = BA%) NUCLEATED RBC % (test 0.0 % 0-0 N code = NRBC%) NEUTROPHIL # (test 2.69 K/mm3 1.8-7.7 N code = NT#) IMMATURE GRANULOCYTE 0.04 x10 3/uL 0-0.03 H # (test code = IG#) LYMPHOCYTE # (test 1.80 K/mm3 1.0-5.0 N code = LY#) MONOCYTE # (test code 0.84 K/mm3 0-0.8 H = MO#) EOSINOPHIL # (test 0.04 K/mm3 0.0-0.5 N code = EO#) BASOPHIL # (test code 0.01 K/mm3 0.0-0.2 N = BA#) NUCLEATED RBC # (test 0.00 K/mm3 0.0-0.1 N code = NRBC#) MANUAL DIFF REQUIRED NO, ONLY SCAN (test code = MDIFF) NEEDED DIFFERENTIAL [id number] 09:16:00 Test Item Value Reference Range Interpretation Comments STAIN ACCEPTABILITY (test STAIN ACCEPTABLE code = STN ACCEPTABLE) HYPOCHROMIA (test code = 1+ HYPO) ANISOCYTOSIS (test code = 1+ ANISO) MACROCYTOSIS (test code = 2+ MACR) PLATELET ESTIMATE (test code ADEQUATE = PLTEST) PLATELET MORPHOLOGY (test SIZE VARIABLE code = PLTMORPH) CBC W/AUTO [id number] 08:39:00 Test Item Value Reference Range Interpretation Comments WHITE BLOOD CELL 5.4 K/mm3 4.5-12.5 N (test code = WBC) RED BLOOD CELL (test 2.64 mill/mm3 3.7-5.2 L code = RBC) HEMOGLOBIN (test code 8.5 gram/dL 11.5-15.5 L = HGB) HEMATOCRIT (test code 29.2 % 36.0-46.0 L = HCT) MEAN CELL VOLUME 110.6 fL 80-98 H RESULT VERI FIED (test code = MCV) BY REPEAT ANALYSIS MEAN CELL HGB (test 32.2 picogram 27.0-33.0 N code = MCH) MEAN CELL HGB 29.1 gram/dL 33.0-36.0 L CONCETRATION (test code = MCHC) RED CELL DISTRIBUTION 15.1 % 11.6-16.2 N WIDTH (test code = RDW) RED CELL DISTRIBUTION 61.6 fL 37.0-51.0 H WIDTH SD (test code = RDW-SD) PLATELET COUNT (test 211 K/mm3 150-450 N RESULT VERIFIED code = PLT) BY REPEAT ANALYSIS MEAN PLATELET VOLUME 11.4 fL 6.7-11.0 H (test code = MPV) NEUTROPHIL % (test 49.7 % 39.0-69.0 N code = NT%) IMMATURE GRANULOCYTE 0.7 % 0.0-5.0 N % (test code = IG%) LYMPHOCYTE % (test 33.2 % 25.0-55.0 N code = LY%) MONOCYTE % (test code 15.5 % 0.0-10.0 H = MO%) EOSINOPHIL % (test 0.7 % 0.0-5.0 N code = EO%) BASOPHIL % (test code 0.2 % 0.0-1.0 N = BA%) NUCLEATED RBC % (test 0.0 % 0-0 N code = NRBC%) NEUTROPHIL # (test 2.69 K/mm3 1.8-7.7 N code = NT#) IMMATURE GRANULOCYTE 0.04 x10 3/uL 0-0.03 H # (test code = IG#) LYMPHOCYTE # (test 1.80 K/mm3 1.0-5.0 N code = LY#) MONOCYTE # (test code 0.84 K/mm3 0-0.8 H = MO#) EOSINOPHIL # (test 0.04 K/mm3 0.0-0.5 N code = EO#) BASOPHIL # (test code 0.01 K/mm3 0.0-0.2 N = BA#) NUCLEATED RBC # (test 0.00 K/mm3 0.0-0.1 N code = NRBC#) MANUAL DIFF REQUIRED NO, ONLY SCAN (test code = MDIFF) NEEDED DIFFERENTIAL [id number] 08:39:00 Test Item Value Reference Range Interpretation Comments STAIN ACCEPTABILITY (test code = STN ACCEPTABLE) MORPHOLOGY COMMENT (test code = MOC) PLATELET ESTIMATE (test code = PLTEST) PLATELET MORPHOLOGY (test code = PLTMORPH) CBC W/AUTO [id number] 07:57:00 Test Item Value Reference Range Interpretation Comments WHITE BLOOD CELL 5.4 K/mm3 4.5-12.5 N (test code = WBC) RED BLOOD CELL (test 2.64 mill/mm3 3.7-5.2 L code = RBC) HEMOGLOBIN (test code 8.5 gram/dL 11.5-15.5 L = HGB) HEMATOCRIT (test code 29.2 % 36.0-46.0 L = HCT) MEAN CELL VOLUME 110.6 fL 80-98 H RESULT VERI FIED (test code = MCV) BY REPEAT ANALYSIS MEAN CELL HGB (test 32.2 picogram 27.0-33.0 N code = MCH) MEAN CELL HGB 29.1 gram/dL 33.0-36.0 L CONCETRATION (test code = MCHC) RED CELL DISTRIBUTION 15.1 % 11.6-16.2 N WIDTH (test code = RDW) RED CELL DISTRIBUTION 61.6 fL 37.0-51.0 H WIDTH SD (test code = RDW-SD) PLATELET COUNT (test 211 K/mm3 150-450 N code = PLT) MEAN PLATELET VOLUME 11.4 fL 6.7-11.0 H (test code = MPV) NEUTROPHIL % (test 49.7 % 39.0-69.0 N code = NT%) IMMATURE GRANULOCYTE 0.7 % 0.0-5.0 N % (test code = IG%) LYMPHOCYTE % (test 33.2 % 25.0-55.0 N code = LY%) MONOCYTE % (test code 15.5 % 0.0-10.0 H = MO%) EOSINOPHIL % (test 0.7 % 0.0-5.0 N code = EO%) BASOPHIL % (test code 0.2 % 0.0-1.0 N = BA%) NUCLEATED RBC % (test 0.0 % 0-0 N code = NRBC%) NEUTROPHIL # (test 2.69 K/mm3 1.8-7.7 N code = NT#) IMMATURE GRANULOCYTE 0.04 x10 3/uL 0-0.03 H # (test code = IG#) LYMPHOCYTE # (test 1.80 K/mm3 1.0-5.0 N code = LY#) MONOCYTE # (test code 0.84 K/mm3 0-0.8 H = MO#) EOSINOPHIL # (test 0.04 K/mm3 0.0-0.5 N code = EO#) BASOPHIL # (test code 0.01 K/mm3 0.0-0.2 N = BA#) NUCLEATED RBC # (test 0.00 K/mm3 0.0-0.1 N code = NRBC#) MANUAL DIFF REQUIRED NO, ONLY SCAN (test code = MDIFF) NEEDED DIFFERENTIAL [id number] 07:57:00 Test Item Value Reference Range Interpretation Comments STAIN ACCEPTABILITY (test code = STN ACCEPTABLE) CABOT RINGS (test code = CAB) MORPHOLOGY COMMENT (test code = MOC) PLATELET ESTIMATE (test code = PLTEST) PLATELET MORPHOLOGY (test code = PLTMORPH) CBC W/AUTO [id number] 07:57:00 Test Item Value Reference Range Interpretation Comments WHITE BLOOD CELL 5.4 K/mm3 4.5-12.5 N (test code = WBC) RED BLOOD CELL (test 2.64 mill/mm3 3.7-5.2 L code = RBC) HEMOGLOBIN (test code 8.5 gram/dL 11.5-15.5 L = HGB) HEMATOCRIT (test code 29.2 % 36.0-46.0 L = HCT) MEAN CELL VOLUME 110.6 fL 80-98 H RESULT VERI FIED (test code = MCV) BY REPEAT ANALYSIS MEAN CELL HGB (test 32.2 picogram 27.0-33.0 N code = MCH) MEAN CELL HGB 29.1 gram/dL 33.0-36.0 L CONCETRATION (test code = MCHC) RED CELL DISTRIBUTION 15.1 % 11.6-16.2 N WIDTH (test code = RDW) RED CELL DISTRIBUTION 61.6 fL 37.0-51.0 H WIDTH SD (test code = RDW-SD) PLATELET COUNT (test 211 K/mm3 150-450 N code = PLT) MEAN PLATELET VOLUME 11.4 fL 6.7-11.0 H (test code = MPV) NEUTROPHIL % (test 49.7 % 39.0-69.0 N code = NT%) IMMATURE GRANULOCYTE 0.7 % 0.0-5.0 N % (test code = IG%) LYMPHOCYTE % (test 33.2 % 25.0-55.0 N code = LY%) MONOCYTE % (test code 15.5 % 0.0-10.0 H = MO%) EOSINOPHIL % (test 0.7 % 0.0-5.0 N code = EO%) BASOPHIL % (test code 0.2 % 0.0-1.0 N = BA%) NUCLEATED RBC % (test 0.0 % 0-0 N code = NRBC%) NEUTROPHIL # (test 2.69 K/mm3 1.8-7.7 N code = NT#) IMMATURE GRANULOCYTE 0.04 x10 3/uL 0-0.03 H # (test code = IG#) LYMPHOCYTE # (test 1.80 K/mm3 1.0-5.0 N code = LY#) MONOCYTE # (test code 0.84 K/mm3 0-0.8 H = MO#) EOSINOPHIL # (test 0.04 K/mm3 0.0-0.5 N code = EO#) BASOPHIL # (test code 0.01 K/mm3 0.0-0.2 N = BA#) NUCLEATED RBC # (test 0.00 K/mm3 0.0-0.1 N code = NRBC#) MANUAL DIFF REQUIRED NO, ONLY SCAN (test code = MDIFF) NEEDED DIFFERENTIAL [id number] 07:57:00 Test Item Value Reference Range Interpretation Comments STAIN ACCEPTABILITY (test code = STN ACCEPTABLE) CABOT RINGS (test code = CAB) MORPHOLOGY COMMENT (test code = MOC) PLATELET ESTIMATE (test code = PLTEST) PLATELET MORPHOLOGY (test code = PLTMORPH) CBC W/AUTO [id number] 07:57:00 Test Item Value Reference Range Interpretation Comments WHITE BLOOD CELL 5.4 K/mm3 4.5-12.5 N (test code = WBC) RED BLOOD CELL (test 2.64 mill/mm3 3.7-5.2 L code = RBC) HEMOGLOBIN (test code 8.5 gram/dL 11.5-15.5 L = HGB) HEMATOCRIT (test code 29.2 % 36.0-46.0 L = HCT) MEAN CELL VOLUME 110.6 fL 80-98 H RESULT VERI FIED (test code = MCV) BY REPEAT ANALYSIS MEAN CELL HGB (test 32.2 picogram 27.0-33.0 N code = MCH) MEAN CELL HGB 29.1 gram/dL 33.0-36.0 L CONCETRATION (test code = MCHC) RED CELL DISTRIBUTION 15.1 % 11.6-16.2 N WIDTH (test code = RDW) RED CELL DISTRIBUTION 61.6 fL 37.0-51.0 H WIDTH SD (test code = RDW-SD) PLATELET COUNT (test 211 K/mm3 150-450 N code = PLT) MEAN PLATELET VOLUME 11.4 fL 6.7-11.0 H (test code = MPV) NEUTROPHIL % (test 49.7 % 39.0-69.0 N code = NT%) IMMATURE GRANULOCYTE 0.7 % 0.0-5.0 N % (test code = IG%) LYMPHOCYTE % (test 33.2 % 25.0-55.0 N code = LY%) MONOCYTE % (test code 15.5 % 0.0-10.0 H = MO%) EOSINOPHIL % (test 0.7 % 0.0-5.0 N code = EO%) BASOPHIL % (test code 0.2 % 0.0-1.0 N = BA%) NUCLEATED RBC % (test 0.0 % 0-0 N code = NRBC%) NEUTROPHIL # (test 2.69 K/mm3 1.8-7.7 N code = NT#) IMMATURE GRANULOCYTE 0.04 x10 3/uL 0-0.03 H # (test code = IG#) LYMPHOCYTE # (test 1.80 K/mm3 1.0-5.0 N code = LY#) MONOCYTE # (test code 0.84 K/mm3 0-0.8 H = MO#) EOSINOPHIL # (test 0.04 K/mm3 0.0-0.5 N code = EO#) BASOPHIL # (test code 0.01 K/mm3 0.0-0.2 N = BA#) NUCLEATED RBC # (test 0.00 K/mm3 0.0-0.1 N code = NRBC#) MANUAL DIFF REQUIRED NO, ONLY SCAN (test code = MDIFF) NEEDED DIFFERENTIAL [id number] 07:57:00 Test Item Value Reference Range Interpretation Comments STAIN ACCEPTABILITY (test code = STN ACCEPTABLE) MORPHOLOGY COMMENT (test code = MOC) PLATELET ESTIMATE (test code = PLTEST) PLATELET MORPHOLOGY (test code = PLTMORPH) CBC W/AUTO [id number] 07:56:00 Test Item Value Reference Range Interpretation Comments WHITE BLOOD CELL 5.4 K/mm3 4.5-12.5 N (test code = WBC) RED BLOOD CELL (test 2.64 mill/mm3 3.7-5.2 L code = RBC) HEMOGLOBIN (test code 8.5 gram/dL 11.5-15.5 L = HGB) HEMATOCRIT (test code 29.2 % 36.0-46.0 L = HCT) MEAN CELL VOLUME 110.6 fL 80-98 H RESULT VERI FIED (test code = MCV) BY REPEAT ANALYSIS MEAN CELL HGB (test 32.2 picogram 27.0-33.0 N code = MCH) MEAN CELL HGB 29.1 gram/dL 33.0-36.0 L CONCETRATION (test code = MCHC) RED CELL DISTRIBUTION 15.1 % 11.6-16.2 N WIDTH (test code = RDW) RED CELL DISTRIBUTION 61.6 fL 37.0-51.0 H WIDTH SD (test code = RDW-SD) PLATELET COUNT (test 211 K/mm3 150-450 N code = PLT) MEAN PLATELET VOLUME 11.4 fL 6.7-11.0 H (test code = MPV) NEUTROPHIL % (test 49.7 % 39.0-69.0 N code = NT%) IMMATURE GRANULOCYTE 0.7 % 0.0-5.0 N % (test code = IG%) LYMPHOCYTE % (test 33.2 % 25.0-55.0 N code = LY%) MONOCYTE % (test code 15.5 % 0.0-10.0 H = MO%) EOSINOPHIL % (test 0.7 % 0.0-5.0 N code = EO%) BASOPHIL % (test code 0.2 % 0.0-1.0 N = BA%) NUCLEATED RBC % (test 0.0 % 0-0 N code = NRBC%) NEUTROPHIL # (test 2.69 K/mm3 1.8-7.7 N code = NT#) IMMATURE GRANULOCYTE 0.04 x10 3/uL 0-0.03 H # (test code = IG#) LYMPHOCYTE # (test 1.80 K/mm3 1.0-5.0 N code = LY#) MONOCYTE # (test code 0.84 K/mm3 0-0.8 H = MO#) EOSINOPHIL # (test 0.04 K/mm3 0.0-0.5 N code = EO#) BASOPHIL # (test code 0.01 K/mm3 0.0-0.2 N = BA#) NUCLEATED RBC # (test 0.00 K/mm3 0.0-0.1 N code = NRBC#) MANUAL DIFF REQUIRED NO, ONLY SCAN (test code = MDIFF) NEEDED DIFFERENTIAL [id number] 07:56:00 Test Item Value Reference Range Interpretation Comments STAIN ACCEPTABILITY (test code = STN ACCEPTABLE) CABOT RINGS (test code = CAB) MORPHOLOGY COMMENT (test code = MOC) PLATELET ESTIMATE (test code = PLTEST) PLATELET MORPHOLOGY (test code = PLTMORPH) BASIC METABOLIC [id number] 07:08:00 Test Item Value Reference Range Interpretation Comments SODIUM (test code = 140 mmol/L 136-145 N NA) POTASSIUM (test code 4.1 mmol/L 3.5-5.1 N = K) CHLORIDE (test code = 113.0 mmol/L 98-107 H CL) CARBON DIOXIDE (test 20.0 mmol/L 21-32 L code = CO2) ANION GAP (test code 11.1 10-20 N = GAP) GLUCOSE (test code = 169 mg/dL 74-106 H GLU) BLOOD UREA NITROGEN 87 mg/dL 7-18 H (test code = BUN) GLOMERULAR FILTRATION 26 mL/min >=60 Estima toya GFR by RATE (test code = using Duc fied MDRD GFR) formula.Chronic kidney disease is defined as ei er kidney damageor GFR <60 mL/min/1.73 m2 for >3 months. CREATININE (test code 1.90 mg/dL 0.55-1.02 H Note change in = CREAT) reference range due to change in reagent. BUN/CREATININE RATIO 45.1 10-20 H (test code = BUN/CREA) CALCIUM (test code = 8.2 mg/dL 8.5-10.1 L CA) FE W/TOTAL IRON BINDING [id number] 07:08:00 Test Item Value Reference Range Interpretation Comments SERUM IRON (test code = IRON) 55 ug/dL 50-175 N TOTAL IRON BINDING CAPACITY (test 225 mcg/dL 250-450 L code = TIBC) IRON SATURATION (test code = 24.44 % 13-45 N FESAT) [id number] 07:08:00 Test Item Value Reference Range Interpretation Comments TROPONIN-I (test code = TROPI) <0.015 ng/mL 0-0.045 N [id number] 07:08:00 Test Item Value Reference Range Interpretation Comments FERRITIN (test code = OSCAR) 299 ng/mL 8-388 N - US RETRO [id number] 06:58:00 Name: LILIANA PATHAK [facility] : 1945 Age/S: 73 / F [address] [facility] Unit #: [id number] Loc: [facility] [place] [address] Phys: Shalom Johnson MD Acct: [id number] Dis Date: Status: ADM IN PHONE #: [phone] Exam Date: 08/04/20182322 FAX #: [phone] Reason: leanna EXAMS: CPTCODE: [id number] US RETRO LTD [id number] REASON FOR EXAM: leanna EXAM ORDER DATE: 08/04/2018 5:52 PM Attending MEver.: Shalom Johnson MD PROCEDURE: - US RETRO LTD COMPARISON: 02/11/2016 FINDINGS: The right kidney measures 8.5 x 3.6 cm. The cross-sectional thickness of the right renal cortex measured 0.9 cm. The left kidney measures 8.2 x 4.3 cm. The cross-sectional thickness of the left renal cortex measured 0.8 cm. There is no evidence of hydronephrosis.There is no evidence of nephrolithiasis. There is no evidence of renal mass. The urinary bladder is unremarkable IMPRESSION: Slight interval decrease in the size of the kidneys and atrophy of the renal cortex when compared to prior exam. No evidence of hydronephrosis at 0658 Reported and signed by: Zurdo Jimenez M.D. CC: Nohelia Mcnally MD; Jd Garay DO; Shalom Johnson MD Technologist: LENORE MARROQUIN RDMS Trnscb Date/Time: 08/05/2018 (0658) t.VTL Orig Print D/T: S: 08/05/2018 (0701) Probe: PAGE 1 Signed ReportB- TYPE NATRIURETIC [id number] 02:47:00 Test Item Value Reference Range Interpretation Comments B-TYPE NATRIURETIC PEPTIDE 122.56 pgram/mL 0-100 H (test code = BNP) Has Patient received Natrecor? NOLACTIC [id number] 02:14:00 Test Item Value Reference Range Interpretation Comments LACTIC ACID (test code = LACT) 0.5 mmol/L 0.4-1.9 N BASIC METABOLIC [id number] 02:00:00 Test Item Value Reference Range Interpretation Comments SODIUM (test code = 139 mmol/L 136-145 N NA) POTASSIUM (test code 4.3 mmol/L 3.5-5.1 N = K) CHLORIDE (test code = 109.0 mmol/L 98-107 H CL) CARBON DIOXIDE (test 20.0 mmol/L 21-32 L code = CO2) ANION GAP (test code 14.3 10-20 N = GAP) GLUCOSE (test code = 115 mg/dL 74-106 H GLU) BLOOD UREA NITROGEN 92 mg/dL 7-18 H (test code = BUN) GLOMERULAR FILTRATION 24 mL/min >=60 Estima toya GFR by RATE (test code = using Duc fied MDRD GFR) formula.Chronic kidney disease is defined as eith er kidney damageor GFR <60 mL/min/1.73 m2 for >3 months. CREATININE (test code 2.00 mg/dL 0.55-1.02 H Note change in = CREAT) reference range due to change in reagent. BUN/CREATININE RATIO 47.2 10-20 H (test code = BUN/CREA) CALCIUM (test code = 8.7 mg/dL 8.5-10.1 N CA) [id number] 02:00:00 Test Item Value Reference Range Interpretation Comments TROPONIN-I (test code = TROPI) <0.015 ng/mL 0-0.045 N COMMENTS TO SPOT FACER: COLLECT 3 HOURS AFTER PREVIOUS SAMPLECBC W/AUTO [id number] 01:54:00 Test Item Value Reference Range Interpretation Comments WHITE BLOOD CELL (test 6.7 K/mm3 4.5-12.5 N code = WBC) RED BLOOD CELL (test 2.96 mill/mm3 3.7-5.2 L code = RBC) HEMOGLOBIN (test code 9.4 gram/dL 11.5-15.5 L = HGB) HEMATOCRIT (test code 30.2 % 36.0-46.0 L = HCT) MEAN CELL VOLUME (test 102.0 fL 80-98 H code = MCV) MEAN CELL HGB (test 31.8 picogram 27.0-33.0 N code = MCH) MEAN CELL HGB 31.1 gram/dL 33.0-36.0 L CONCETRATION (test code = MCHC) RED CELL DISTRIBUTION 14.9 % 11.6-16.2 N WIDTH (test code = RDW) RED CELL DISTRIBUTION 55.3 fL 37.0-51.0 H WIDTH SD (test code = RDW-SD) PLATELET COUNT (test 250 K/mm3 150-450 RESULT VERIFIED BY code = PLT) REPEAT ANALYSIS MEAN PLATELET VOLUME 10.9 fL 6.7-11.0 N (test code = MPV) NEUTROPHIL % (test 55.9 % 39.0-69.0 N code = NT%) IMMATURE GRANULOCYTE % 1.1 % 0.0-5.0 N (test code = IG%) LYMPHOCYTE % (test 27.7 % 25.0-55.0 N code = LY%) MONOCYTE % (test code 15.0 % 0.0-10.0 H = MO%) EOSINOPHIL % (test 0.3 % 0.0-5.0 N code = EO%) BASOPHIL % (test code 0.0 % 0.0-1.0 N = BA%) NUCLEATED RBC % (test 0.0 % 0-0 N code = NRBC%) NEUTROPHIL # (test 3.72 K/mm3 1.8-7.7 N code = NT#) IMMATURE GRANULOCYTE # 0.07 x10 3/uL 0-0.03 H (test code = IG#) LYMPHOCYTE # (test 1.84 K/mm3 1.0-5.0 N code = LY#) MONOCYTE # (test code 1.00 K/mm3 0-0.8 H = MO#) EOSINOPHIL # (test 0.02 K/mm3 0.0-0.5 N code = EO#) BASOPHIL # (test code 0.00 K/mm3 0.0-0.2 N = BA#) NUCLEATED RBC # (test 0.00 K/mm3 0.0-0.1 N code = NRBC#) MANUAL DIFF REQUIRED NO (test code = MDIFF) BASIC METABOLIC [id number] 01:50:00 Test Item Value Reference Range Interpretation Comments SODIUM (test code = NA) 139 mmol/L 136-145 N POTASSIUM (test code = K) 4.3 mmol/L 3.5-5.1 N CHLORIDE (test code = CL) 109.0 mmol/L 98-107 H CARBON DIOXIDE (test code = CO2) mmol/L 21-32 ANION GAP (test code = GAP) 10-20 GLUCOSE (test code = GLU) mg/dL 74-106 BLOOD UREA NITROGEN (test code = mg/dL 7-18 BUN) GLOMERULAR FILTRATION RATE (test mL/min >=60 code = GFR) CREATININE (test code = CREAT) mg/dL 0.55-1.02 BUN/CREATININE RATIO (test code 10-20 = BUN/CREA) CALCIUM (test code = CA) mg/dL 8.5-10.1 - XR CHEST 1 [id number] 01:50:00 FAX: Gabbi Garcia MD [phone] [place]: B St: ADM FAX: Nohelia Burroughs MD [phone] FAX: Jd Hein DO [phone] Name: SINGHESTEFANIALILIANA [facility] : 1945 Age/S: 73/F [address] [facility] Unit #: [id number] Loc: V.[address] [place] [address] Phys: Gabbi Garcia MD Acct: [id number] Dis Date: Status: ADM IN PHONE #: [phone] Exam Date: 08/05/2018 0130 FAX #: [phone] Reason: chest pain EXAMS: CPT CODE: [id number] XR CHEST 1 V [id number] HISTORY: Chest pain. Location: C3 COMPARISON:08/04/2018 FINDINGS: Heart size and vascularity are within normal limits. The lungs are clear of focal consolidation. No effusion, pneumothorax, or acute osseous abnormality. IMPRESSION: 1. No focal consolidation. No other acute abnormalities. 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 If false elevation issuspected, co ntact lab for alterna toya testing techniq ue. UR CREATININE RANDOM 61.0 mg/dL 30-125 N (test code = CREATU) PROTEIN/CREATININE 0.11 RATIO 0.0-0.20 N RATIO (test code = P/CRATIO) [id number] 20:27:00 Test Item Value Reference Range Interpretation Comments GLUBED (test code 181 mg/dL 74-106 H Performed by certified = GLUBED) [facility]~ [id number] 17:32:00 Test Item Value Reference Range Interpretation Comments TROPONIN-I (test code = TROPI) <0.015 ng/mL 0-0.045 N COMMENTS TO SPOT FACER: COLLECT 3 HOURS AFTER PREVIOUS [id number] 17:21:00 Test Item Value Reference Range Interpretation Comments GLYCOSYLATED HEMOGLOBIN (HA1C) 6.5 % HbA1 4.8-6.0 H (test code = GLYHGB) ESTIMATED AVERAGE GLUCOSE (test 140 MG/DL code = EAG) [id number] 16:47:00 Test Item Value Reference Range Interpretation Comments GLUBED (test code = 96 mg/dL 74-106 N Performe d by certified GLUBED) 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 machine operator at [facility] BASIC METABOLIC [id number] 14:06:00 Test Item Value Reference Range Interpretation Comments SODIUM (test code = 137 mmol/L 136-145 N NA) POTASSIUM (test code 4.5 mmol/L 3.5-5.1 N = K) CHLORIDE (test code = 106.0 mmol/L 98-107 N CL) CARBON DIOXIDE (test 22.0 mmol/L 21-32 N code = CO2) ANION GAP (test code 13.5 10-20 N = GAP) GLUCOSE (test code = 159 mg/dL 74-106 H GLU) BLOOD UREA NITROGEN 95 mg/dL 7-18 H (test code = BUN) GLOMERULAR FILTRATION 21 mL/min >=60 Estima toya GFR by RATE (test code = using Duc fied MDRD GFR) formula.Chronic kidney disease is defined as [facility] er kidney damageor GFR <60 mL/min/1.73 m2 for >3 months. CREATININE (test code 2.30 mg/dL 0.55-1.02 H Note change in = CREAT) reference range due to change in reagent. BUN/CREATININE RATIO 41.7 10-20 H (test code = BUN/CREA) CALCIUM (test code = 9.9 mg/dL 8.5-10.1 N CA) [id number] 14:06:00 Test Item Value Reference Range Interpretation Comments TROPONIN-I (test code = TROPI) <0.015 ng/mL 0-0.045 N BASIC METABOLIC [id number] 13:52:00 Test Item Value Reference Range Interpretation Comments SODIUM (test code = NA) 137 mmol/L 136-145 N POTASSIUM (test code = K) 4.5 mmol/L 3.5-5.1 N CHLORIDE (test code = CL) 106.0 mmol/L 98-107 N CARBON DIOXIDE (test code = CO2) mmol/L 21-32 ANION GAP (test code = GAP) 10-20 GLUCOSE (test code = GLU) mg/dL 74-106 BLOOD UREA NITROGEN (test code = mg/dL 7-18 BUN) GLOMERULAR FILTRATION RATE (test mL/min >=60 code = GFR) CREATININE (test code = CREAT) mg/dL 0.55-1.02 BUN/CREATININE RATIO (test code 10-20 = BUN/CREA) CALCIUM (test code = CA) mg/dL 8.5-10.1 [id number] 13:52:00 Test Item Value Reference Range Interpretation Comments TROPONIN-I (test code = TROPI) ng/mL 0-0.045 CBC W/O [id number] 13:51:00 Test Item Value Reference Range Interpretation Comments WHITE BLOOD CELL (test code = 11.0 K/mm3 4.5-12.5 N WBC) RED BLOOD CELL (test code = 3.22 mill/mm3 3.7-5.2 L RBC) HEMOGLOBIN (test code = HGB) 10.4 gram/dL 11.5-15.5 L HEMATOCRIT (test code = HCT) 32.8 % 36.0-46.0 L MEAN CELL VOLUME (test code = 101.9 fL 80-98 H MCV) MEAN CELL HGB (test code = MCH) 32.3 picogram 27.0-33.0 N MEAN CELL HGB CONCETRATION 31.7 gram/dL 33.0-36.0 L (test code = MCHC) RED CELL DISTRIBUTION WIDTH 14.7 % 11.6-16.2 N (test code = RDW) PLATELET COUNT (test code = 321 K/mm3 150-450 N PLT) MEAN PLATELET VOLUME (test code 10.6 fL 6.7-11.0 N = MPV) - XR CHEST 1 [id number] 13:43:00 FAX: Shanda GuevaraHoustonJd Sebastian FRANCOIS [phone] [place]: St: PRE FAX: Gui Patel DO Name: LILIANA PATHAK [facility] : 1945 Age/S: 73/F [address] [facility] Unit #: [id number] Loc: [place] [address] Phys: Gui Patel DO Acct: Malachi [id number] Dis Date: Status: PRE ER PHONE #: [phone] Exam Date: 08/04/2018 1337 FAX #: [phone] Reason: CHEST PAIN EXAMS: CPT CODE: [id number] XR CHEST 1 V [id number] EXAM: Chest x-ray, one view; INFORMATION: Chest pain; IMPRESSION: 1. No evidence of active cardiopulmonary disease. 2. No change compared with a study dating, 2018. at 1343 Reported and signed by: Soham Hammond M.D. CC: Jd Garay DO; Gui Ptael DO Technologist: Veda Chris) Trnscrd Date/Time/By: 08/04/2018 (1005) : By: CameronW Orig Print D/T: S: 08/04/2018 (1528) PAGE 1 Signed Report
[2019-12-06] MEDS ORDERED: HYDROCODONE/APAP 5/325 MG TAB ONE (05:48)
[2019-12-06] MEDS ORDERED: DIAZEPAM 2 MG TABLET ONE (05:49)
--- NOTE | 2019-12-06 06:09 | ER ---
Nurse's Notes [facility] Name: Leeann Vail Age: 74 yrs Sex: Female : 1945 Arrival Date: 12/06/2019 Time: 05:17 Bed 2 Private MD: Diagnosis: Sciatica, left side Presentation: 12/05 05:40 Chief complaint: Patient states: "I have this pain that starts on the left side of my jd3 backside below the hip area and the pain shoots down my left leg. I had this same thing happen last Friday and I was discharged, but it came back.". Coronavirus screen: Proceed with normal triage. Ebola Screen: Patient negative for fever greater than or equal to 101.5 degrees Fahrenheit, and additional compatible Ebola Virus Disease symptoms. Initial Sepsis Screen: Does the patient meet any 2 criteria? No. Patient's initial sepsis screen is negative. Does the patient have a suspected source of infection? No. Patient's initial sepsis screen is negative. Risk Assessment: Do you want to hurt yourself or someone else? Patient reports no desire to harm self or others. Onset of symptoms was December 03, 2019. 05:40 Method Of Arrival: Wheelchair jd3 05:40 Acuity: MARNIE 4 jd3 Historical: - Allergies: 05:48 Codeine; jd3 - Home Meds: 05:48 Aspirin Oral [Active]; atorvastatin Oral [Active]; levothyroxine oral [Active]; jd3 - PMHx: 05:48 Diabetes - NIDDM; Hypothyroidism; jd3 - PSHx: 05:48 Back; jd3 - Immunization history:: Adult Immunizations up to date. - Social history:: Smoking status: unknown. Screenin:51 Abuse screen: Denies threats or abuse. Nutritional screening: No deficits noted. jd3 Tuberculosis screening: No symptoms or risk factors identified. Fall Risk Ambulatory Aid- Crutches/Cane/Walker (15 pts). Gait- Weak (10 pts.). Mental Status- Oriented to own ability (0 pts). Total Joseph Fall Scale indicates Low Risk Score (25-44 pts). Fall prevention measures have been instituted. Side Rails Up X 2 Placed close to Nursing Station Frequent Obs/Assesments occuring. Assessment: 05:49 General: Appears in no apparent distress. uncomfortable, Behavior is calm, cooperative, jd3 appropriate for age. Pain: Complains of pain in left lower back and left gluteus radha Pain radiates to left leg Quality of pain is described as sharp, shooting. Neuro: Level of Consciousness is awake, alert, obeys commands, Oriented to person, place, time, situation. Cardiovascular: Denies chest pain, Capillary refill < 3 seconds Patient's skin is warm and dry. Respiratory: Airway is patent Respiratory effort is even, unlabored, Respiratory pattern is regular, symmetrical, Denies cough, shortness of breath. GI: Abdomen is round non-distended, Abd is soft and non tender X 4 quads. Reports nausea, Patient currently denies abdominal pain, constipation, diarrhea, vomiting. : No signs and/or symptoms were reported regarding the genitourinary system. EENT: No signs and/or symptoms were reported regarding the EENT system. Derm: Skin is intact, Skin is dry, Skin is normal, Skin temperature is warm. Musculoskeletal: Circulation, motion, and sensation intact. Range of motion: intact in all extremities. 06:08 Reassessment: Patient appears in no apparent distress at this time. Patient and/or jd3 family updated on plan of care and expected duration. Pain level reassessed. Patient is alert, oriented x 3, equal unlabored respirations, skin warm/dry/pink. Patient states feeling better. Vital Signs: 05:48 BP 154 / 81; Pulse 83; Resp 20 S; Temp 98.2(O); Pulse Ox 100% on R/A; Weight 63.5 kg jd3 (R); Height 4 ft. 9 in. (144.78 cm) (R); Pain 10/10; 05:48 Body Mass Index 30.30 (63.50 kg, 144.78 cm) jd3 ED Course: 05:17 Patient arrived in ED. bp1 05:26 Jessica Thompson, RN is Primary Nurse. lp1 05:26 Jesse Frank DO is Attending Physician. ms3 05:46 Triage completed. jd3 05:48 Arm band placed on. jd3 05:51 Patient has correct armband on for positive identification. Bed in low position. Call jd3 light in reach. Side rails up X 1. Pulse ox on. NIBP on. 06:28 No provider procedures requiring assistance completed. Patient did not have IV access jd3 during this emergency room visit. Administered Medications: 05:44 Drug: Valium 2 mg Route: PO; jd3 06:30 Follow up: Response: No adverse reaction jd3 05:44 Drug: Export 5 mg-325 mg 1 tabs Route: PO; jd3 06:30 Follow up: Response: No adverse reaction; RASS: Alert and Calm (0) jd3 Outcome: 06:09 Discharge ordered by . ms3 06:28 Discharged to home via wheelchair, with family. jd3 06:28 Condition: stable 06:28 Discharge instructions given to patient, Instructed on discharge instructions, follow up and referral plans. medication usage, Demonstrated understanding of instructions, follow-up care, medications, Prescriptions given X 1. 06:30 Patient left the ED. jd3 Signatures: Jessica Thompson RN RN lp1 Alfredo Pantoja RN RN jd3 Jesse Frank DO DO ms3 April Tate bp1
--- NOTE | 2019-12-06 06:09 | EDPHYS ---
Physician Documentation [facility] Name: Leeann Vail Age: 74 yrs Sex: Female : 1945 Arrival Date: 12/06/2019 Time: 05:17 Bed 2 Private MD: ED Physician Jesse Frank HPI: 12/05 05:40 This 74 yrs old Female presents to ER via Unassigned with complaints of Left ms3 Buttock pain. 05:40 The patient presents with pain that is acute, with no known mechanism of injury. The ms3 symptoms are located in the Left buttock. Onset: The symptoms/episode began/occurred 10 day(s) ago. The pain radiates to the left leg. Associated signs and symptoms: Pertinent negatives: abdominal pain, fever, incontinence. Associated signs and symptoms: Pertinent positives: nausea. The problem was sustained from unknown cause. Modifying factors: The patient symptoms are alleviated by nothing, the patient symptoms are aggravated by any movement. Severity of symptoms: in the emergency department the symptoms are unchanged. Historical: - Allergies: 05:48 Codeine; jd3 - Home Meds: 05:48 Aspirin Oral [Active]; atorvastatin Oral [Active]; levothyroxine oral [Active]; jd3 - PMHx: 05:48 Diabetes - NIDDM; Hypothyroidism; jd3 - PSHx: 05:48 Back; jd3 - Immunization history:: Adult Immunizations up to date. - Social history:: Smoking status: unknown. ROS: 05:40 Constitutional: Negative for fever, and chills. Eyes: Negative for injury, pain, ms3 redness, and discharge, ENT: Negative for injury, pain, and discharge, Neck: Negative for injury, pain, and swelling, Cardiovascular: Negative for chest pain, and palpitations. Respiratory: Negative for shortness of breath, cough, wheezing, and pleuritic chest pain, Skin: Negative for injury, rash, and discoloration, Neuro: Negative for headache, weakness, numbness, tingling. 05:40 Abdomen/GI: Positive for nausea. 05:40 MS/extremity: Positive for Sciatica L leg. Exam: 05:40 Constitutional: This is a well developed, well nourished patient who is awake, alert, ms3 and in no acute distress. Head/Face: Normocephalic, atraumatic. Eyes: Pupils equal round and reactive to light, extra-ocular motions intact. Lids and lashes normal. Conjunctiva and sclera are non-icteric and not injected. Cornea within normal limits. Periorbital areas with no swelling, redness, or edema. Neck: Trachea midline, no cervical lymphadenopathy. Supple, full range of motion without nuchal rigidity, or vertebral point tenderness. No Meningismus. Chest/axilla: Normal chest wall appearance and motion. Nontender with no deformity. Cardiovascular: Regular rate and rhythm with a normal S1 and S2. No gallops, murmurs, or rubs. Normal PMI, no JVD. No pulse deficits. Respiratory: Lungs have equal breath sounds bilaterally, clear to auscultation and percussion. No rales, rhonchi or wheezes noted. No increased work of breathing, no retractions or nasal flaring. Abdomen/GI: Soft, non-tender, with normal bowel sounds. No distension or tympany. No guarding or rebound. No evidence of tenderness throughout. Back: No spinal tenderness. No costovertebral tenderness. Full range of motion. Skin: Warm, dry with normal turgor. Normal color with no rashes, no lesions, and no evidence of cellulitis. 05:40 Musculoskeletal/extremity: Extremities: Pain recreated with palpation of left buttock. 05:40 Musculoskeletal/extremity: DP/ PT pulses 2+/4. ms3 Vital Signs: 05:48 BP 154 / 81; Pulse 83; Resp 20 S; Temp 98.2(O); Pulse Ox 100% on R/A; Weight 63.5 kg jd3 (R); Height 4 ft. 9 in. (144.78 cm) (R); Pain 10/10; 05:48 Body Mass Index 30.30 (63.50 kg, 144.78 cm) jd3 MDM: 05:40 Differential diagnosis: Abdominal Aortic Aneurysm Joint Injury Sciatica. Data reviewed: ms3 vital signs, nurses notes. 05:47 Patient medically screened. ms3 06:16 Data interpreted: Pulse oximetry: Interpretation: normal. Counseling: I had a detailed ms3 discussion with the patient and/or guardian regarding: the historical points, exam findings, and any diagnostic results supporting the discharge/admit diagnosis, the need for outpatient follow up, to return to the emergency department if symptoms worsen or persist or if there are any questions or concerns that arise at home, Discussed hip x-ray from 12/04/2019 with patient. ED course: Discussed PE with pt. Pt to follow up with her PMD on Friday. Pt understands/ agrees with plan. All questions answered. Return precautions discussed to include weakness, fever, or any other concerns. Pt improved, a/o x4, nad, non-toxic.. Administered Medications: 05:44 Drug: Valium 2 mg Route: PO; jd3 06:30 Follow up: Response: No adverse reaction jd3 05:44 Drug: Farner 5 mg-325 mg 1 tabs Route: PO; jd3 06:30 Follow up: Response: No adverse reaction; RASS: Alert and Calm (0) jd3 Disposition: 12/06/19 06:09 Discharged to Home. Impression: Sciatica, left side. - Condition is Stable. - Discharge Instructions: Sciatica, [id number]. - Prescriptions for Zanaflex 4 mg Oral Tablet - take 1 tablet by ORAL route every 8 hours As needed; 15 tablet. - Medication Reconciliation Form, Thank You Letter, Antibiotic Education, Prescription Opioid Use form. - Follow up: Private Physician; When: 1 - 2 days. - Problem is new. - Symptoms have improved. Signatures: Alfredo Pantoja RN RN jd3 Jesse Frank DO DO ms3 Corrections: (The following items were deleted from the chart) 06:30 06:09 12/06/2019 06:09 Discharged to Home. Impression: Sciatica, left side. Condition jd3 is Stable. Forms are Medication Reconciliation Form, Thank You Letter, Antibiotic Education, Prescription Opioid Use. Follow up: Private Physician; When: 1 - 2 days. Problem is new. Symptoms have improved. ms3
[2019-12-06 06:36] VITALS: BP 154/81; TEMP 98.2; O2SAT 100
== END 2019-12-06 06:30 | disposition home or self-care (01) ==
LOC: ER 05:12
DX: M54.32 Sciatica, left side (principal); E03.9 Hypothyroidism, unspecified; E11.9 Type 2 diabetes mellitus without complications; Z79.82 Long term (current) use of aspirin; Z88.5 Allergy status to narcotic agent
CPT/HCPCS: 99283